=== PATIENT | female | born 1945 | race Caucasian/White ===

== ENCOUNTER 2016-08-06 12:47 | Outpatient (RCR) | payer MEDICARE, OTHER ==
[~2016-08-06 12:47] MED LIST: AMLO10TA82 PO; ASP325T; ASP81TEC PO; CALC-6 PO; CHOL2000 PO; D50KC PO; DILT120C PO; DILT120T11 PO; DRON400T2 PO; E400C PO; FEMORA PO; FENO135C PO; FEXO-104 PO; FEXO60CA19; KCL20TCR; KCL20TCR PO; LETR2.5T4 PO; LEVO5TAB2 PO; MAXZIDE; METO200T6 PO; MTF500T PO; MTP100TCR; MTP100TCR PO; MULT1TAB63 PO; OLME40TA14; OMEG100T PO; OMEG1CAP58 PO; OMG1KC; PANT40SU PO; PNT40TEC; RIVA20TA2 PO; ROSU10TA12 PO; SIMV40TA2 PO; SLOW-MAG64 M1 PO; TRIA1CAP4 PO; TRILIPEX PO; VYTORIN; WRF1T PO; WRF2T PO
[2016-08-06 13:13] LABS: BASOPHILS # (AUTO) 0.1 10^3/uL (0.0-0.1); BASOPHILS % (AUTO) 1 % (0-10); EOSINOPHILS # (AUTO) 0.3 10^3/uL (0.0-0.3); EOSINOPHILS % (AUTO) 4 % (0-10); LYMPHOCYTES # (AUTO) 1.7 X 10^3 (1.0-4.0); LYMPHOCYTES % (AUTO) 19 % (12-44); MEAN CORPUSCULAR HEMOGLOBIN 28 PG (25-34); MEAN CORPUSCULAR HGB CONC 33 G/DL (32-36); MEAN CORPUSCULAR VOLUME 84 FL (80-99); MEAN PLATELET VOLUME 11.7 FL (7.4-10.4); MONOCYTES # (AUTO) 0.7 X 10^3 (0.0-1.0); MONOCYTES % (AUTO) 8 % (0-12); NEUTROPHILS # (AUTO) 6.1 X 10^3 (1.8-7.8); NEUTROPHILS % (AUTO) 69 % (42-75); PLATELET COUNT 247 10^3/uL (130-400); RED CELL DISTRIBUTION WIDTH 14.9 % (10.0-14.5); WHITE BLOOD COUNT 8.9 10^3/uL (4.3-11.0)
[2016-08-06 14:17] LABS: ALBUMIN 4.2 G/DL (3.2-4.5); BILIRUBIN,TOTAL 0.4 MG/DL (0.1-1.0); CALCIUM 9.8 MG/DL (8.5-10.1); CREATININE SERUM 0.96 MG/DL (0.60-1.30); POTASSIUM 4.4 MMOL/L (3.6-5.0); TOTAL PROTEIN 6.4 G/DL (6.4-8.2)
[2017-03-17] MEDS ORDERED: FERR-74 PO (07:42)
[2017-03-17] MEDS ORDERED: METO200T4 PO (14:25)
== END 2016-11-04 | disposition home or self-care (01) ==
LOC: ONC 12:47
PROVIDERS: ATTEND Internal Medicine Hematology & Oncology
DX: Z08 Encounter for follow-up examination after completed treatment for malignant neoplasm (principal); Z85.3 Personal history of malignant neoplasm of breast; I89.0 Lymphedema, not elsewhere classified; N18.3 Chronic kidney disease, stage 3 (moderate); Z90.12 Acquired absence of left breast and nipple; Z79.899 Other long term (current) drug therapy
CPT/HCPCS: 36415; 80053; 85025; 99213

== ENCOUNTER → 2016-11-16 | Outpatient (CLI) | payer MEDICARE, OTHER ==
--- NOTE | 2016-11-16 09:00 | Diagnostic Imaging Report ---
PROCEDURE: US Gallbladder. TECHNIQUE: Multiple real-time grayscale images were obtained over the right upper quadrant in various projections. INDICATION: Nausea and vomiting x2 months with abdominal distention. FINDINGS: There is increased echogenicity of the liver consistent with fatty infiltration. Liver is mildly enlarged measuring 17 cm in long axis. Bile ducts are not dilated. Gallbladder shows no gallstones. Gallbladder wall measures 2.4 mm. No pericholecystic edema. The portal and hepatic vein are patent. The right kidney is visualized and shows no evidence of obstruction or calculi. There is no ascites. Patient did not experience positive Hay's sign. IMPRESSION: 1. Hepatic steatosis with mild hepatomegaly. 2. Gallbladder and bile ducts appear normal. Dictated by: Dictated on workstation # [id number]
== END ==
LOC: RAD 07:57
PROVIDERS: ATTEND Internal Medicine
DX: K76.0 Fatty (change of) liver, not elsewhere classified (principal); R10.13 Epigastric pain
CPT/HCPCS: 76705

== ENCOUNTER 2016-11-25 15:21 | Outpatient (RCR) | payer MEDICARE, OTHER ==
[~2016-11-25 15:21] MED LIST changes: -CATHETER FLUSH 10 ML SYR IV PRN
== END 2016-12-08 09:18 | disposition home or self-care (01) ==
PROVIDERS: ATTEND Orthopaedic Surgery
DX: M75.42 Impingement syndrome of left shoulder (principal)

== ENCOUNTER → 2016-11-25 | Outpatient (CLI) | payer MEDICARE, OTHER ==
[~2016-11-25] MED LIST changes: +CATHETER FLUSH 10 ML SYR IV PRN
--- NOTE | 2016-11-25 14:23 | Diagnostic Imaging Report ---
EXAMINATION: HIDA with EF measurements Indication: Abdominal pain TECHNIQUE: After the intravenous administration of 5.4 mCi of Tc 99m Choletec, imaging over the abdomen was obtained. This was followed by administration of Ensure orally to stimulate intrinsic CCK secretion, followed by continued imaging with ejection fraction measured. FINDINGS: There is homogeneous uptake in the liver with prompt bile duct and gallbladder filling seen. Bowel activity is seen at 30 minutes. Based on further imaging and gallbladder area of interest activity measurements after the administration of Ensure, the gallbladder ejection fraction is estimated at 91%. IMPRESSION: 1. Normal hepatobiliary uptake and Gallbladder filling. 2. Normal gallbladder ejection fraction. Dictated by: Dictated on workstation # [id number]
== END ==
LOC: CARD 11:22
PROVIDERS: ATTEND Internal Medicine
DX: R11.2 Nausea with vomiting, unspecified (principal)
CPT/HCPCS: 78227

== ENCOUNTER → 2016-12-30 | Outpatient (CLI) | payer MEDICARE, OTHER ==
[~2016-12-30] VITALS: Ht 160 cm; Wt 84.4 kg
[~2016-12-30] MED LIST changes: +ASPI-999 PO; +CATHETER FLUSH 10 ML SYR IV PRN; +CNC1KV IJ; +CYAN100097 SL; +DILT240C PO; +FENO135C4 PO; +FERR-74 PO; +GABA-486 PO; +LEVO5TAB12 PO; +LOSA100T28 PO; +METF500T4 PO; +METO200T4 PO; +MULT1TAB69 PO; +OMEG-9 PO; +PANT40TA3 PO; +POTA10TA36 PO; +REGADENOSON 0.4 MG/5 ML SYR (LEXISCAN) IV ONE; +RIVA20TA PO
[2016-12-30 13:08] VITALS: BP 215/104
--- NOTE | 2016-12-31 16:32 | STRESS TEST ---
DATE OF SERVICE: 12/30/2016 LEXISCAN MYOVIEW STRESS TEST REPORT REFERRING PHYSICIAN: Dong Hicks DO Baseline heart rate is 81. Baseline blood pressure is 215/104. Baseline EKG is sinus rhythm with no ischemic changes. In summary, the patient received 10.39 mCi of technetium-99 Myoview and the resting images were obtained. Then, the patient received 0.4 mg of Lexiscan followed by 29.5 mCi of technetium-99 Myoview. Throughout the test, there were no EKG changes. The resting and stress images were reviewed and compared and the short axis, horizontal long axis, and vertical long axis views. Review of the images showed breast attenuation affecting the quality of the images, there is no significant ischemia or infarction was seen. SSS is 5, SDS 5 due to the breast attenuation. There were no gated images made on this study. CONCLUSION: 1. The patient tolerated Lexiscan well. 2. Baseline hypertension persisted throughout test. 3. Breast attenuation affecting the quality of the images with typical female pattern. No significant ischemia or infarction was noted. 4. No gated images were done on this study. Job ID: [id number] DocumentID: [id number] Dictated Date: 12/30/2016 14:50:39 Sandblaster Paint Sprayer Date: 12/30/2016 17:37:32 Dictated By: TANNER MARSHALL MD
== END ==
LOC: CARD 10:57
PROVIDERS: ATTEND Physician Assistant
DX: I25.10 Atherosclerotic heart disease of native coronary artery without angina pectoris (principal); I48.0 Paroxysmal atrial fibrillation; I65.23 Occlusion and stenosis of bilateral carotid arteries; I10 Essential (primary) hypertension
CPT/HCPCS: 93306

== ENCOUNTER → 2017-02-22 | Outpatient (CLI) | payer MEDICARE, OTHER ==
[~2017-02-22] MED LIST changes: -ASPI-999 PO; -CATHETER FLUSH 10 ML SYR IV PRN; -CNC1KV IJ; -CYAN100097 SL; -DILT240C PO; -FENO135C4 PO; -FERR-74 PO; -GABA-486 PO; -LEVO5TAB12 PO; -LOSA100T28 PO; -METF500T4 PO; -METO200T4 PO; -MULT1TAB69 PO; -OMEG-9 PO; -PANT40TA3 PO; -POTA10TA36 PO; -REGADENOSON 0.4 MG/5 ML SYR (LEXISCAN) IV ONE; -RIVA20TA PO
--- NOTE | 2017-02-23 13:19 | Diagnostic Imaging Report ---
EXAMINATION: Right breast screening mammogram with tomography. The current study was also evaluated with a Computer Aided Detection (CAD) system. COMPARISON: 02/20/2016. INDICATION: No current complaints. History of breast cancer status post left mastectomy. FINDINGS: The right breast is composed of heterogeneously dense parenchyma which may decrease mammographic sensitivity. There are benign appearing calcifications seen. Allowing for technique and positional differences, no suspicious change is seen. IMPRESSION: Dense breasts with no definite change. ACR BI-RADS Category 2: Benign findings. Result letter will be mailed to the patient. Note: At least 10% of breast cancer is not imaged by mammography. Dictated by: Dictated on workstation # [id number]
== END ==
LOC: RAD 14:41
PROVIDERS: ATTEND Nurse Practitioner Adult Health
DX: Z12.31 Encounter for screening mammogram for malignant neoplasm of breast (principal)

== ENCOUNTER 2017-02-25 12:55 | Outpatient (RCR) | payer MEDICARE, OTHER ==
[2017-02-25 13:13] LABS: BASOPHILS # (AUTO) 0.1 10^3/uL (0.0-0.1); BASOPHILS % (AUTO) 1 % (0-10); EOSINOPHILS # (AUTO) 0.3 10^3/uL (0.0-0.3); EOSINOPHILS % (AUTO) 6 % (0-10); HEMATOCRIT 41 % (35-52); LYMPHOCYTES # (AUTO) 1.5 X 10^3 (1.0-4.0); LYMPHOCYTES % (AUTO) 27 % (12-44); MEAN CORPUSCULAR HEMOGLOBIN 29 PG (25-34); MEAN CORPUSCULAR HGB CONC 34 G/DL (32-36); MEAN CORPUSCULAR VOLUME 86 FL (80-99); MEAN PLATELET VOLUME 12.2 FL (7.4-10.4); MONOCYTES # (AUTO) 0.5 X 10^3 (0.0-1.0); MONOCYTES % (AUTO) 9 % (0-12); NEUTROPHILS # (AUTO) 3.2 X 10^3 (1.8-7.8); NEUTROPHILS % (AUTO) 58 % (42-75); PLATELET COUNT 197 10^3/uL (130-400); RED BLOOD COUNT 4.77 10^6/uL (4.35-5.85); RED CELL DISTRIBUTION WIDTH 14.4 % (10.0-14.5); WHITE BLOOD COUNT 5.6 10^3/uL (4.3-11.0)
[2017-02-25 13:41] LABS: ALANINE AMINOTRANSFERASE 26 U/L (0-55); ALBUMIN 4.1 GM/DL (3.2-4.5); ALKALINE PHOSPHATASE 41 U/L (40-136); BILIRUBIN,TOTAL 0.5 MG/DL (0.1-1.0); BUN/CREATININE RATIO 21; CALCIUM 9.8 MG/DL (8.5-10.1); CARBON DIOXIDE 27 MMOL/L (21-32); CHLORIDE 105 MMOL/L (98-107); CREATININE SERUM 0.89 MG/DL (0.60-1.30); GFR ESTIMATED > 60; GLUCOSE 265 MG/DL (70-105); POTASSIUM 3.9 MMOL/L (3.6-5.0); SODIUM 138 MMOL/L (135-145); TOTAL PROTEIN 6.7 GM/DL (6.4-8.2)
[2017-03-17] MEDS ORDERED: POTA10TA36 PO (07:42)
[2017-03-17] MEDS ORDERED: FERR325T18 PO (07:42)
[2017-03-17] MEDS ORDERED: CYAN100097 SL (07:42)
[2017-03-17] MEDS ORDERED: GABA-486 PO ×2 (07:42→14:25)
[2017-03-17] MEDS ORDERED: LOSA100T28 PO (07:42)
[2017-03-17] MEDS ORDERED: LEVO5TAB12 PO (14:11)
[2017-03-17] MEDS ORDERED: RIVA20TA PO (14:25)
[2017-03-17] MEDS ORDERED: DILT240C PO (14:25)
[2017-03-17] MEDS ORDERED: METF500T4 PO (14:25)
[2017-03-17] MEDS ORDERED: ASPI-999 PO (14:25)
[2017-03-17] MEDS ORDERED: PANT40TA3 PO (14:25)
[2017-03-17] MEDS ORDERED: MULT1TAB69 PO (14:25)
[2017-03-17] MEDS ORDERED: METO200T48 PO (14:25)
[2017-03-17] MEDS ORDERED: FENO135C4 PO (14:25)
[2017-03-17] MEDS ORDERED: CNC1KV IJ (14:25)
[2017-03-17] MEDS ORDERED: OMEG-9 PO (14:25)
[2017-03-17] MEDS ORDERED: DRON400T2 PO (14:25)
== END 2017-05-26 | disposition home or self-care (01) ==
LOC: ONC 12:55
PROVIDERS: ATTEND Internal Medicine Hematology & Oncology
DX: Z08 Encounter for follow-up examination after completed treatment for malignant neoplasm (principal); Z85.3 Personal history of malignant neoplasm of breast; I89.0 Lymphedema, not elsewhere classified; N18.3 Chronic kidney disease, stage 3 (moderate); Z90.12 Acquired absence of left breast and nipple; Z79.899 Other long term (current) drug therapy
CPT/HCPCS: 36415; 80053; 85025; 99213

== ENCOUNTER → 2017-07-12 | Outpatient (CLI) | payer MEDICARE, OTHER ==
[~2017-07-12] MED LIST changes: +ASPI-999 PO; +CNC1KV IJ; +CYAN100097 SL; +DILT240C PO; +FENO135C4 PO; +FERR325T18 PO; +GABA-486 PO; +LEVO5TAB12 PO; +LOSA100T28 PO; +METF500T4 PO; +METO200T48 PO; +MULT1TAB69 PO; +OMEG-9 PO; +PANT40TA3 PO; +POTA10TA36 PO; +RIVA20TA PO
== END ==
LOC: SLEEP 14:30
PROVIDERS: ATTEND Internal Medicine
DX: G47.33 Obstructive sleep apnea (adult) (pediatric) (principal)

== ENCOUNTER 2017-08-13 21:05 | Outpatient (CLI) | payer MEDICARE, OTHER ==
[~2017-08-13 21:05] MED LIST changes: -METF500T4 PO; +METF500T5 PO
== END 2017-08-14 07:26 | disposition home or self-care (01) ==
LOC: SLEEP 21:05
PROVIDERS: ATTEND Otolaryngology Otolaryngology/Facial Plastic Surgery
DX: G47.33 Obstructive sleep apnea (adult) (pediatric) (principal)
CPT/HCPCS: 95811

== ENCOUNTER 2017-08-26 13:10 | Outpatient (RCR) | payer MEDICARE, OTHER ==
[2017-08-26 13:37] LABS: BASOPHILS # (AUTO) 0.1 10^3/uL (0.0-0.1); BASOPHILS % (AUTO) 1 % (0-10); EOSINOPHILS # (AUTO) 0.2 10^3/uL (0.0-0.3); EOSINOPHILS % (AUTO) 4 % (0-10); HEMATOCRIT 40 % (35-52); HEMOGLOBIN 13.8 G/DL (11.5-16.0); LYMPHOCYTES # (AUTO) 1.8 X 10^3 (1.0-4.0); LYMPHOCYTES % (AUTO) 30 % (12-44); MEAN CORPUSCULAR HEMOGLOBIN 30 PG (25-34); MEAN CORPUSCULAR HGB CONC 34 G/DL (32-36); MEAN CORPUSCULAR VOLUME 86 FL (80-99); MEAN PLATELET VOLUME 12.3 FL (7.4-10.4); MONOCYTES # (AUTO) 0.4 X 10^3 (0.0-1.0); MONOCYTES % (AUTO) 7 % (0-12); NEUTROPHILS # (AUTO) 3.4 X 10^3 (1.8-7.8); NEUTROPHILS % (AUTO) 58 % (42-75); PLATELET COUNT 198 10^3/uL (130-400); RED BLOOD COUNT 4.66 10^6/uL (4.35-5.85); RED CELL DISTRIBUTION WIDTH 14.1 % (10.0-14.5); WHITE BLOOD COUNT 5.9 10^3/uL (4.3-11.0)
[2017-08-26 13:52] LABS: ALBUMIN 4.4 GM/DL (3.2-4.5); BILIRUBIN,TOTAL 0.7 MG/DL (0.1-1.0); CALCIUM 10.4 MG/DL (8.5-10.1); CREATININE SERUM 1.09 MG/DL (0.60-1.30); POTASSIUM 3.9 MMOL/L (3.6-5.0)
== END 2017-11-24 | disposition home or self-care (01) ==
LOC: ONC 13:10
PROVIDERS: ATTEND Internal Medicine Hematology & Oncology
DX: Z08 Encounter for follow-up examination after completed treatment for malignant neoplasm (principal); Z85.3 Personal history of malignant neoplasm of breast; I89.0 Lymphedema, not elsewhere classified; N18.3 Chronic kidney disease, stage 3 (moderate); I48.91 Unspecified atrial fibrillation; Z90.12 Acquired absence of left breast and nipple; Z79.899 Other long term (current) drug therapy; Z92.21 Personal history of antineoplastic chemotherapy
CPT/HCPCS: 36415; 80053; 85025; 99213

== ENCOUNTER 2018-02-23 12:55 | Outpatient (RCR) | payer MEDICARE, OTHER ==
[~2018-02-23 12:55] MED LIST changes: -LOSA100T28 PO; +LOSA100T57 PO; +METF-397 PO; -METF500T5 PO
[2018-02-23 13:06] LABS: BASOPHILS # (AUTO) 0.1 10^3/uL (0.0-0.1); BASOPHILS % (AUTO) 1 % (0-10); EOSINOPHILS # (AUTO) 0.4 10^3/uL (0.0-0.3); EOSINOPHILS % (AUTO) 6 % (0-10); HEMATOCRIT 40 % (35-52); HEMOGLOBIN 13.7 G/DL (11.5-16.0); LYMPHOCYTES # (AUTO) 1.6 X 10^3 (1.0-4.0); LYMPHOCYTES % (AUTO) 29 % (12-44); MEAN CORPUSCULAR HEMOGLOBIN 31 PG (25-34); MEAN CORPUSCULAR HGB CONC 35 G/DL (32-36); MEAN CORPUSCULAR VOLUME 88 FL (80-99); MEAN PLATELET VOLUME 11.7 FL (7.4-10.4); MONOCYTES # (AUTO) 0.5 X 10^3 (0.0-1.0); MONOCYTES % (AUTO) 8 % (0-12); NEUTROPHILS # (AUTO) 3.1 X 10^3 (1.8-7.8); NEUTROPHILS % (AUTO) 56 % (42-75); PLATELET COUNT 215 10^3/uL (130-400); RED BLOOD COUNT 4.49 10^6/uL (4.35-5.85); WHITE BLOOD COUNT 5.5 10^3/uL (4.3-11.0)
[2018-02-23 13:27] LABS: ALBUMIN 4.4 GM/DL (3.2-4.5); BILIRUBIN,TOTAL 0.6 MG/DL (0.1-1.0); CALCIUM 10.1 MG/DL (8.5-10.1); CREATININE SERUM 0.97 MG/DL (0.60-1.30); POTASSIUM 3.9 MMOL/L (3.6-5.0)
== END 2018-05-24 | disposition home or self-care (01) ==
LOC: ONC 12:55
PROVIDERS: ATTEND Internal Medicine Hematology & Oncology
DX: Z08 Encounter for follow-up examination after completed treatment for malignant neoplasm (principal); Z85.3 Personal history of malignant neoplasm of breast; I89.0 Lymphedema, not elsewhere classified; N18.3 Chronic kidney disease, stage 3 (moderate); I48.91 Unspecified atrial fibrillation; Z90.12 Acquired absence of left breast and nipple; Z79.899 Other long term (current) drug therapy; Z92.21 Personal history of antineoplastic chemotherapy
CPT/HCPCS: 36415; 80053; 85025; 99213

== ENCOUNTER → 2018-02-28 | Outpatient (CLI) | payer MEDICARE, OTHER ==
[~2018-02-28] MED LIST changes: -LOSA100T57 PO; +LOSA100T8 PO
--- NOTE | 2018-02-28 12:11 | Diagnostic Imaging Report ---
INDICATION: Routine screening. Comparison is made with prior right mammogram from 02/22/2017 and 02/20/2016. 2-D and 3-D unilateral right screening mammography was performed with CAD. Scattered fibronodular densities are identified in the right breast. There are benign calcifications in the right breast. No mass or malignant appearing microcalcifications are seen. The right axilla is unremarkable. IMPRESSION: BI-RADS category 2 No mammographic features suspicious for malignancy are identified. Dictated by: Dictated on workstation # [id number]
== END ==
LOC: RAD 10:52
PROVIDERS: ATTEND Nurse Practitioner Adult Health
DX: Z12.31 Encounter for screening mammogram for malignant neoplasm of breast (principal); C50.412 Malignant neoplasm of upper-outer quadrant of left female breast

== ENCOUNTER 2018-06-02 12:11 | Outpatient (CLI) | payer MEDICARE, OTHER ==
[~2018-06-02] VITALS: Ht 160 cm; Wt 84.4 kg
[~2018-06-02 12:11] MED LIST changes: +LOSA100T57 PO; -LOSA100T8 PO
[2018-06-02] MEDS ORDERED: LACTATED RINGERS 1,000 ML IV ONE ×2 (12:20→13:15)
[2018-06-02] MEDS ORDERED: ONDANSETRON 4 MG/2 ML (SDV) Z0FRAN ONE (12:37)
[2018-06-02 12:49] VITALS: BP 136/65
[2018-06-02 12:59] VITALS: BP 136/65
[2018-06-02 13:02] LABS: HEMOGLOBIN 13.5 G/DL (11.5-16.0); MEAN PLATELET VOLUME 11.9 FL (7.4-10.4); RED CELL DISTRIBUTION WIDTH 14.1 % (10.0-14.5)
[2018-06-02] MEDS ORDERED: DIPHENOXYLATE/ATROPINE 2.5MG/0.025MG (LOMOTIL) TAB PO PRN (13:15)
[2018-06-02] MEDS ORDERED: ONDANSETRON 4 MG/2 ML (SDV) Z0FRAN IV PRN (13:15)
[2018-06-02] MEDS ORDERED: ACETAMINOPHEN 325 MG TABLET PO PRN (13:15)
[2018-06-02 13:20] LABS: ALBUMIN 3.8 GM/DL (3.2-4.5); BILIRUBIN,TOTAL 0.6 MG/DL (0.1-1.0); CALCIUM 9.4 MG/DL (8.5-10.1); CREATININE SERUM 1.02 MG/DL (0.60-1.30); POTASSIUM 3.1 MMOL/L (3.6-5.0); TOTAL PROTEIN 6.5 GM/DL (6.4-8.2)
[2018-06-02] MEDS ORDERED: D5 NS W/KCL 20 MEQ/L 1,000 ML IV ONE (13:30)
[2018-06-02 15:53] VITALS: BP 136/65
== END 2018-06-02 15:50 | disposition home or self-care (01) ==
LOC: SDC 12:11
PROVIDERS: ATTEND Internal Medicine
DX: A08.4 Viral intestinal infection, unspecified (principal); E86.0 Dehydration
CPT/HCPCS: 36415; 80053; 85027

== ENCOUNTER 2018-06-04 03:41 | Emergency (ER) | payer MEDICARE, OTHER ==
[~2018-06-04] VITALS: Ht 160 cm; Wt 81.6 kg
[2018-06-04] MEDS ORDERED: DRON400T2 (04:02)
[2018-06-04] MEDS ORDERED: PRAV20TA3 (04:02)
[2018-06-04] MEDS ORDERED: GLYB5TAB6 (04:02)
[2018-06-04] MEDS ORDERED: METF-397 (04:02)
[2018-06-04] MEDS ORDERED: HYDR25TA4 (04:02)
[2018-06-04] MEDS ORDERED: LACTATED RINGERS 1,000 ML IV ONE (04:06)
--- NOTE | 2018-06-04 04:13 | ED GI ---
General Chief Complaint: Cough/Cold/Flu Symptoms Stated Complaint: FLU,N,V,D,A-FIB,DEHYDRATED Source of Information: Patient History of Present Illness Date Seen by Provider: Jun 04, 2018 Time Seen by Provider: 03:55 Initial Comments PT ARRIVES VIA POV FROM HOME--DROVE SELF HERE/LIVES ALONE C/O NAUSEA/VOMITING/DIARRHEA SINCE Wednesday05/30/18 STATES SHE IS STILL NAUSEATED, BUT HAS NOT VOMITED SINCE Wednesday06/02/18 STATES SHE HAS HAD "EXPLOSIVE DIARRHEA" STATES SHE HAD 22 STOOLS FROM 2100 06/02/18 TO 0900 ON 06/03/18 STATES SHE HAS HAD 8-9 STOOLS SINCE MIDNIGHT TONIGHT STATES SHE HAS BEEN UP ALL NIGHT DUE TO DIARRHEA NO BLACK/BLOODY/TARRY STOOLS HAS HAD SUBJECTIVE FEVER AND SWEATS ALL WEEK. STATES SHE WOKE UP AND HER PILLOW AND CLOTHING WERE SATURATED WITH SWEAT NO ABDOMINAL PAIN AT ANY TIME LAST VOID 0315 AND VOIDING A NORMAL AMOUNT NO SICK CONTACTS NO SUSPICIOUS FOODS HAD OUTPATIENT IV FLUIDS, BUT NO TESTS, ON 06/02/18--ORDERED BY DR. DEL CID PCP: DR. DEL CID JAVA XML DEVELOPER: DR. MARSHALL Allergies and Home Medications Allergies Coded Allergies: amiodarone (Verified Allergy, Intermediate, 07/29/07) butorphanol (Verified Allergy, Intermediate, 07/29/07) codeine (Verified Allergy, Intermediate, 07/29/07) epinephrine (Verified Allergy, Intermediate, 07/29/07) hydrocodone (Verified Allergy, Intermediate, 07/29/07) morphine (Verified Allergy, Intermediate, 07/29/07) Home Medications Aspirin 81 Mg Tab.chew, 81 MG PO HS, (Reported) Cyanocobalamin 1,000 Mcg/Ml Inj, 1,000 MCG IJ MONTHLY, (Reported) Diltiazem HCl 240 Mg Cap.er.24h, 240 MG PO DAILY, (Reported) Dronedarone HCl 400 Mg Tablet, 400 MG PO BID, (Reported) Fenofibric Acid (Choline) 135 Mg Capsule.dr, 135 MG PO HS, (Reported) Ferrous Sulfate 325 Mg Tablet, 325 MG PO HS, (Reported) Lactobacillus Acidophilus 1 Each Capsule, 2 EACH PO QID Prescribed by: INOCENCIO WALL on 06/04/18 0555 Levocetirizine Dihydrochloride 5 Mg Tablet, 5 MG PO HS, (Reported) Losartan Potassium 100 Mg Tablet, 100 MG PO HS, (Reported) Metoprolol Succinate 200 Mg Tab.er.24h, 200 MG PO DAILY, (Reported) Multivitamin 1 Each Tablet, 1 TAB PO DAILY, (Reported) [place]-3/Dha/Epa/Fish Oil 1 Each Capsule.dr, 1,400 MG PO BID, (Reported) Ondansetron 4 Mg Tab.rapdis, 4 MG PO Q4H Prescribed by: INOCENCIO WALL on 06/04/18 0555 Potassium Chloride 10 Meq Tab.er.prt, 10 MEQ PO HS, (Reported) Rivaroxaban 20 Mg Tablet, 20 MG PO HS, (Reported) Patient Home Medication List Home Medication List Reviewed: Yes Review of Systems Review of Systems Constitutional: see HPI, diaphoresis, fever EENTM: No Symptoms Reported Respiratory: No Symptoms Reported Gastrointestinal: See HPI; Denies Abdominal Pain; Diarrhea, Nausea, Poor Appetite, Vomiting Genitourinary: No Symptoms Reported Musculoskeletal: no symptoms reported Skin: no symptoms reported Psychiatric/Neurological: No Symptoms Reported Endocrine: No Symptoms Reported Hematologic/Lymphatic: No Symptoms Reported Past Visccwi-Pnvakh-Wuhmgx Hx Patient Social History Alcohol Use: Denies Use Recreational Drug Use: No Smoking Status: Never a Smoker Recent Foreign Travel: No Contact w/Someone Who Travel: No Immunizations Up To Date Date of Pneumonia Vaccine: Nov 12, 2008 Date of Influenza Vaccine: Jan 13, 2017 Seasonal Allergies Seasonal Allergies: No Past Medical History Surgeries: Yes (LINQ DEVICE; MAZE PROCEDURE; CARDIAC ABLATION; CARDIAC CATH; 4 VESSEL CABG; HYST/OVARIES INTACT; RIGHT WRIST JOINT SURGERY; BILATERAL ROTATOR CUFF REPAIR; LEFT MASTECTOMY) Appendectomy, Breast, Cardiac, CABG, Section, Hysterectomy, Orthopedic Respiratory: No Cardiac: Yes Atrial Fibrillation, Chronic Edema/Swelling, Coronary Artery Disease, High Cholesterol, Hypertension Neurological: No Reproductive Disorders: No Female Reproductive Disorders: Denies Genitourinary: Yes Kidney Stones Gastrointestinal: Yes Gastroesophageal Reflux, Hiatal Hernia Musculoskeletal: Yes (LYMPHEDEMA LEFT ARM; BILATERAL ROTATOR CUFF SURGERY; RIGHT WRIST JOINT SURGERY) Arthritis, Rheumatoid Arthritis Endocrine: Yes Diabetes, Non-Insulin dep HEENT: Yes Cataract Loss of Vision: Denies Hearing Impairment: Denies Cancer: Yes Breast Did You Recieve Any Treatments: Yes (LEFT MASTECTOMY) What Type of Treatment Did You: Surgical Intervention Psychosocial: No Integumentary: No Blood Disorders: No Physical Exam Vital Signs Vital Signs - First Documented 06/04/18 03:48 Temp 97.2 Pulse 89 Resp 18 B/P (MAP) 141/96 (111) Pulse Ox 96 O2 Delivery Room Air Capillary Refill : Height/Weight/BMI Height: 5'3.00" Weight: 186lbs. 0.0oz. 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, no motor/sensory deficits, alert, normal mood/affect, oriented x 3 Skin: normal color, warm/dry Focused Exam Lactate Level 06/04/18 04:20: Lactic Acid Level 0.65 Lactic Acid Level Laboratory Tests Test 06/04/18 04:20 Lactic Acid Level 0.65 MMOL/L (0.50-2.00) Progress/Results/Core Measures Results/Orders Lab Results Laboratory Tests Test 06/04/18 04:20 Range/Units White Blood Count 7.4 4.3-11.0 10^3/uL Red Blood Count 4.59 4.35-5.85 10^6/uL Hemoglobin 13.6 11.5-16.0 G/DL Hematocrit 40 35-52 % Mean Corpuscular Volume 87 80-99 FL Mean Corpuscular Hemoglobin 30 25-34 PG Mean Corpuscular Hemoglobin Concent 34 32-36 G/DL Red Cell Distribution Width 14.4 10.0-14.5 % Platelet Count 158 130-400 10^3/uL Mean Platelet Volume 12.1 H 7.4-10.4 FL Neutrophils (%) (Auto) 72 42-75 % Lymphocytes (%) (Auto) 14 12-44 % Monocytes (%) (Auto) 13 H 0-12 % Eosinophils (%) (Auto) 0 0-10 % Basophils (%) (Auto) 0 0-10 % Neutrophils # (Auto) 5.3 1.8-7.8 X 10^3 Lymphocytes # (Auto) 1.1 1.0-4.0 X 10^3 Monocytes # (Auto) 1.0 0.0-1.0 X 10^3 Eosinophils # (Auto) 0.0 0.0-0.3 10^3/uL Basophils # (Auto) 0.0 0.0-0.1 10^3/uL Prothrombin Time 18.9 H 12.2-14.7 SEC INR Comment 1.6 H 0.8-1.4 Activated Partial Thromboplast Time 45 H 24-35 SEC Sodium Level 137 135-145 MMOL/L Potassium Level 3.0 L 3.6-5.0 MMOL/L Chloride Level 106 98-107 MMOL/L Carbon Dioxide Level 19 L 21-32 MMOL/L Anion Gap 12 5-14 MMOL/L Blood Urea Nitrogen 29 H 7-18 MG/DL Creatinine 1.19 0.60-1.30 MG/DL Estimat Glomerular Filtration Rate 44 BUN/Creatinine Ratio 24 Glucose Level 52 *L 70-105 MG/DL Lactic Acid Level 0.65 0.50-2.00 MMOL/L Calcium Level 10.1 8.5-10.1 MG/DL Corrected Calcium 10.2 H 8.5-10.1 MG/DL Magnesium Level 1.7 L 1.8-2.4 MG/DL Total Bilirubin 0.7 0.1-1.0 MG/DL Aspartate Amino Transf (AST/SGOT) 25 5-34 U/L Alanine Aminotransferase (ALT/SGPT) 30 0-55 U/L Alkaline Phosphatase 33 L 40-136 U/L Total Protein 7.0 6.4-8.2 GM/DL Albumin 3.9 3.2-4.5 GM/DL Amylase Level 55 25-125 U/L Lipase 32 8-78 U/L Micro Results Microbiology 06/04/18 Influenza Types A,B Antigen (ANIBAL) - Final, Complete My Orders Orders - INOCENCIO WALL DO Saline Lock/Iv-Start (06/04/18 04:06) Monitor-Rhythm Ecg Trace Only (06/04/18 04:06) Amylase (06/04/18 04:06) Cbc With Automated Diff (06/04/18 04:06) Comprehensive Metabolic Panel (06/04/18 04:06) Lactic Acid Analyzer (06/04/18 04:06) Lipase (06/04/18 04:06) Magnesium (06/04/18 04:06) Protime With Inr (06/04/18 04:06) Partial Thromboplastin Time (06/04/18 04:06) Ua Culture If Indicated (06/04/18 04:06) Blood Culture (06/04/18 04:06) Influenza A And B Antigens (06/04/18 04:06) Ondansetron Injection (Zofran Injectio (06/04/18 04:15) Saline Lock/Iv-Start (06/04/18 04:06) Lactated Ringers (Lr 1000 Ml Iv Solution (06/04/18 04:06) D5 1/2 Ns W/Kcl 20 Meq/L (Dextrose 5%/0. (06/04/18 05:00) Magnesium 1 Gm/100 Ml Ivpb (Magnesium Carter (06/04/18 05:00) Magnesium Oxide Tablet (Mag Ox Tablet) (06/04/18 05:00) D5 1/2 Ns W/Kcl 20 Meq/L (Dextrose 5%/0. (06/04/18 04:59) Magnesium 1 Gm/100 Ml Ivpb (Magnesium Carter (06/04/18 04:59) Magnesium Oxide Tablet (Mag Ox Tablet) (06/04/18 04:59) Magnesium Oxide Tablet (Mag Ox Tablet) (06/04/18 05:06) Accucheck Stat ONCE (06/04/18 05:51) Medications Given in ED Current Medications Medications Dose Ordered Sig/Torie Route Start Time Stop Time Status Last Admin Dose Admin Lactated Ringer's 1,000 ml @ 0 mls/hr Q0M ONCE IV 06/04/18 04:06 06/04/18 04:09 DC 06/04/18 04:23 0 MLS/HR Magnesium Oxide 1,200 mg ONCE ONCE PO 06/04/18 05:00 06/04/18 05:16 DC 06/04/18 05:08 1,200 MG Magnesium Sulfate/ Dextrose 100 ml @ 100 mls/hr ONCE ONCE IV 06/04/18 05:00 06/04/18 05:59 DC 06/04/18 05:08 100 MLS/HR Ondansetron HCl 4 mg ONCE ONCE IVP 06/04/18 04:15 06/04/18 04:16 DC 06/04/18 04:23 4 MG Vital Signs/I&O 06/04/18 03:48 Temp 97.2 Pulse 89 Resp 18 B/P (MAP) 141/96 (111) Pulse Ox 96 O2 Delivery Room Air Progress Progress Note : Progress Note NAUSEA RELIEVED WITH ZOFRAN AND NO VOMITING DURING ER STAY NO DIARRHEA DURING ER STAY NO FEVER/SWEATS/CHILLS DURING ER STAY PT VOIDED BUT UNABLE TO COLLECT URINE REPEAT GLUCOSE 175 Departure Impression Primary Impression: Gastroenteritis Additional Impressions: Mild dehydration Electrolyte imbalance Hypomagnesemia Hypokalemia Hypoglycemia associated with diabetes Disposition: HOME, SELF-CARE Condition: Improved Departure-Patient Inst. Referrals: LUDY DEL CID DO (PCP/Family) Primary Care Physician Patient Instructions: Dehydration, Adult (DC), Hypokalemia (DC), Low Magnesium Level (DC), Sick Day Management for Diabetics, Viral Gastroenteritis, Adult (DC) Add. Discharge Instructions: CLEAR LIQUIDS-WATER, BROTH, JELLO, GATORADE BRATS DIET--BANANAS, RICE, APPLESAUCE, TOAST, SALTINES TYLENOL AND MOTRIN NEEDED FOR PAIN OR FEVER OVER [address] DEL CID ON WEDNESDAY IF NO BETTER, RETURN TO ER IF WORSE All discharge instructions reviewed with patient and/or family. Voiced understanding. Scripts Ondansetron (Ondansetron Odt) 4 Mg Tab.rapdis 4 MG PO Q4H for Nausea/Vomiting, #10 TAB Prov: INOCENCIO WALL DO 06/04/18 Lactobacillus Acidophilus (Acidophilus) 1 Each Capsule 2 EACH PO QID, #80 CAP Prov: INOCENCIO WALL DO 06/04/18 INOCENCIO WALL DO Jun 04, 2018 04:13
[2018-06-04] MEDS ORDERED: ONDANSETRON 4 MG/2 ML (SDV) Z0FRAN IVP ONE (04:15)
[2018-06-04 04:36] LABS: BASOPHILS % (AUTO) 0 % (0-10); EOSINOPHILS % (AUTO) 0 % (0-10); HEMATOCRIT 40 % (35-52); HEMOGLOBIN 13.6 G/DL (11.5-16.0); LYMPHOCYTES # (AUTO) 1.1 X 10^3 (1.0-4.0); LYMPHOCYTES % (AUTO) 14 % (12-44); MEAN CORPUSCULAR HEMOGLOBIN 30 PG (25-34); MEAN CORPUSCULAR HGB CONC 34 G/DL (32-36); MEAN CORPUSCULAR VOLUME 87 FL (80-99); MEAN PLATELET VOLUME 12.1 FL (7.4-10.4); MONOCYTES % (AUTO) 13 % (0-12); NEUTROPHILS # (AUTO) 5.3 X 10^3 (1.8-7.8); NEUTROPHILS % (AUTO) 72 % (42-75); PLATELET COUNT 158 10^3/uL (130-400); RED CELL DISTRIBUTION WIDTH 14.4 % (10.0-14.5); WHITE BLOOD COUNT 7.4 10^3/uL (4.3-11.0)
[2018-06-04 04:47] LABS: INR 1.6 (0.8-1.4); PROTHROMBIN TIME PATIENT 18.9 SEC (12.2-14.7)
[2018-06-04 04:55] LABS: ALBUMIN 3.9 GM/DL (3.2-4.5); BILIRUBIN,TOTAL 0.7 MG/DL (0.1-1.0); CALCIUM 10.1 MG/DL (8.5-10.1); CREATININE SERUM 1.19 MG/DL (0.60-1.30); MAGNESIUM 1.7 MG/DL (1.8-2.4)
[2018-06-04] MEDS ORDERED: MAGNESIUM OXIDE (MAG-OX)400 MG TAB ONE ×2 (04:59→05:06)
[2018-06-04] MEDS ORDERED: MAGNESIUM 1 GM/100 ML IVPB 100 ML IV ONE ×2 (04:59→05:00)
[2018-06-04] MEDS ORDERED: D5 1/2 NS W/KCL 20 MEQ/L 1,000 ML IV ONE (04:59)
[2018-06-04] MEDS ORDERED: D5 1/2 NS W/KCL 20 MEQ/L 1,000 ML IV SCH (05:00)
[2018-06-04] MEDS ORDERED: MAGNESIUM OXIDE (MAG-OX)400 MG TAB PO ONE (05:00)
[2018-06-04] MEDS ORDERED: ONDA4TAB11 PO (05:55)
[2018-06-04] MEDS ORDERED: LACT1CAP8 PO (05:55)
[2018-06-04 06:50] VITALS: BP 132/65
[2018-06-04] MEDS ORDERED: LACT1POW8 MC (06:54)
== END 2018-06-04 06:52 | disposition home or self-care (01) ==
LOC: EDUNIT# 03:41 → ER 03:44
DX: K52.9 Noninfective gastroenteritis and colitis, unspecified (principal); E86.0 Dehydration; E87.6 Hypokalemia; E11.649 Type 2 diabetes mellitus with hypoglycemia without coma; E83.42 Hypomagnesemia; E87.8 Other disorders of electrolyte and fluid balance, not elsewhere classified; I48.91 Unspecified atrial fibrillation; I25.10 Atherosclerotic heart disease of native coronary artery without angina pectoris; E78.00 Pure hypercholesterolemia, unspecified; I10 Essential (primary) hypertension; K21.9 Gastro-esophageal reflux disease without esophagitis; Z85.3 Personal history of malignant neoplasm of breast; Z87.19 Personal history of other diseases of the digestive system; Z87.442 Personal history of urinary calculi; Z79.82 Long term (current) use of aspirin; Z79.01 Long term (current) use of anticoagulants; Z98.890 Other specified postprocedural states; Z95.1 Presence of aortocoronary bypass graft; Z90.12 Acquired absence of left breast and nipple; Z90.49 Acquired absence of other specified parts of digestive tract; Z90.710 Acquired absence of both cervix and uterus; Z88.8 Allergy status to other drugs, medicaments and biological substances; Z88.5 Allergy status to narcotic agent
CPT/HCPCS: 36415; 80053; 82150; 82962; 83605; 83690; 83735; 85025; 85610; 85730; 87040; 87804; 93041

== ENCOUNTER 2018-10-13 12:22 | Outpatient (RCR) | payer MEDICARE, OTHER ==
[2018-10-13 13:20] LABS: BASOPHILS % (AUTO) 1 % (0-10); EOSINOPHILS # (AUTO) 0.3 10^3/uL (0.0-0.3); EOSINOPHILS % (AUTO) 6 % (0-10); HEMATOCRIT 42 % (35-52); LYMPHOCYTES # (AUTO) 1.3 X 10^3 (1.0-4.0); LYMPHOCYTES % (AUTO) 31 % (12-44); MEAN CORPUSCULAR HEMOGLOBIN 30 PG (25-34); MEAN CORPUSCULAR HGB CONC 34 G/DL (32-36); MEAN CORPUSCULAR VOLUME 88 FL (80-99); MEAN PLATELET VOLUME 12.6 FL (7.4-10.4); MONOCYTES # (AUTO) 0.5 X 10^3 (0.0-1.0); MONOCYTES % (AUTO) 13 % (0-12); NEUTROPHILS % (AUTO) 49 % (42-75); PLATELET COUNT 159 10^3/uL (130-400); RED CELL DISTRIBUTION WIDTH 14.7 % (10.0-14.5); WHITE BLOOD COUNT 4.1 10^3/uL (4.3-11.0)
[2018-10-13 13:39] LABS: ALBUMIN 4.5 GM/DL (3.2-4.5); BILIRUBIN,TOTAL 0.5 MG/DL (0.1-1.0); CALCIUM 10.4 MG/DL (8.5-10.1); CREATININE SERUM 1.13 MG/DL (0.60-1.30); POTASSIUM 3.9 MMOL/L (3.6-5.0)
[2018-10-23] MEDS ORDERED: CYCL10TA9 PO (14:18)
[2018-10-23] MEDS ORDERED: TRAM50TA2 PO (14:18)
[2019-01-12] MEDS ORDERED: TRAM-42 PO (10:12)
[2019-01-12] MEDS ORDERED: TIZA2CAP PO (10:12)
== END 2019-01-11 | disposition home or self-care (01) ==
LOC: ONC 12:22
PROVIDERS: ATTEND Internal Medicine Hematology & Oncology
DX: Z08 Encounter for follow-up examination after completed treatment for malignant neoplasm (principal); Z85.3 Personal history of malignant neoplasm of breast; I89.0 Lymphedema, not elsewhere classified; I12.9 Hypertensive chronic kidney disease with stage 1 through stage 4 chronic kidney disease, or unspecified chronic kidney disease; N18.3 Chronic kidney disease, stage 3 (moderate); I48.0 Paroxysmal atrial fibrillation; E78.00 Pure hypercholesterolemia, unspecified; K21.9 Gastro-esophageal reflux disease without esophagitis; M06.9 Rheumatoid arthritis, unspecified; Z90.12 Acquired absence of left breast and nipple; Z79.899 Other long term (current) drug therapy; Z92.21 Personal history of antineoplastic chemotherapy
CPT/HCPCS: 36415; 80053; 85025; 99213

== ENCOUNTER → 2018-10-13 | Outpatient (CLI) | payer MEDICARE, OTHER ==
[~2018-10-13] MED LIST changes: +DRON400T2; +GLYB5TAB6; +HYDR25TA4; +LACT1CAP8 PO; +LACT1POW8 MC; +METF-397; +ONDA4TAB11 PO; +PRAV20TA3; -RIVA20TA PO
--- NOTE | 2018-10-13 17:55 | Diagnostic Imaging Report ---
EXAMINATION: Pelvis and bilateral hips at 2:18 p.m. INDICATION: Chronic hip pain. FINDINGS: A single AP view of the pelvis and AP and lateral views of both hip joints were obtained. There is no fracture, dislocation or acute bony abnormality evident. There is mild degenerative disease involving the hip and sacroiliac joints. The degenerative changes have not progressed since the prior exam of 11/21/2013. The soft tissues are unremarkable for an acute abnormality. As noted on the prior exam there are surgical clips in the soft tissues of the medial aspect of each thigh. Incidental note is also made of a medication tablet overlying the right sacroiliac joint. IMPRESSION: 1. There is no evidence for an acute bony abnormality. When compare the prestudy there has been no significant change. 2. If clinical concern regarding an underlying abnormality persists and further imaging is desired, then MRI would be recommended. Dictated by: Dictated on workstation # [id number]
== END ==
LOC: RAD 13:59
PROVIDERS: ATTEND Nurse Practitioner Adult Health
DX: G89.29 Other chronic pain (principal); M25.551 Pain in right hip; M25.552 Pain in left hip; Z85.3 Personal history of malignant neoplasm of breast; Z98.890 Other specified postprocedural states
CPT/HCPCS: 73523

== ENCOUNTER 2018-10-23 12:45 | Emergency (ER) | payer MEDICARE, OTHER | END 2018-10-23 14:21 | disposition home or self-care (01) | LOC: ER 12:45 ==

== ENCOUNTER 2019-01-12 07:32 | Emergency (ER) | payer MEDICARE, OTHER ==
[~2019-01-12] VITALS: Ht 160 cm; Wt 81.3 kg
[~2019-01-12 07:32] MED LIST changes: +CYCL10TA9 PO; +TRAM50TA2 PO
[2019-01-12] MEDS ORDERED: ORPHENADRINE 60 MG/2 ML (NORFLEX) AMP IV ONE (08:15)
[2019-01-12] MEDS ORDERED: fentaNYL INJECTION 100 MCG/2 ML AMP IVP ONE (08:15)
--- NOTE | 2019-01-12 08:24 | ED Back Pain ---
General Chief Complaint: Back Problems Stated Complaint: BACK PAIN Nursing Triage Note: PT PRESENTS TO ED WITH COMPLAINTS OF LOW BACK AND HIP PAIN THAT WOKE HER UP FROM HER SLEEP. PT REPORTS SHE HAS HAD A PINCHED NEVER IN HER BACK THAT FLAIRS UP. 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 Nursing Sepsis Screen: No Definite Risk Source of Information: Patient Exam Limitations: No Limitations (MARVIN ADAMSON STUDENT) History of Present Illness Date Seen by Provider: Jan 12, 2019 Time Seen by Provider: 08:40 Initial Comments This 73 year old female presents via EMS for intense lumbar back pain that woke her up. The pain has come and gone for three days since she injured it lifting a quilt. The pain is currently 5/10 with intense short spasms of 10/10. She has history of polymyalgia rheumatica and occasionally takes tylenol for back pain. Nothing has been taken so far today to relieve pain. Location: [facility] Spine (MARVIN ADAMSON STUDENT) Time Seen by Provider: 07:57 (LEONIDES GOMEZ MD) Allergies and Home Medications Allergies Coded Allergies: amiodarone (Verified Allergy, Intermediate, 07/29/07) butorphanol (Verified Allergy, Intermediate, 07/29/07) codeine (Verified Allergy, Intermediate, 07/29/07) epinephrine (Verified Allergy, Intermediate, 07/29/07) hydrocodone (Verified Allergy, Intermediate, 07/29/07) morphine (Verified Allergy, Intermediate, 07/29/07) Home Medications Aspirin 81 Mg Tab.chew, 81 MG PO HS, (Reported) Cyanocobalamin 1,000 Mcg/Ml Inj, 1,000 MCG IJ MONTHLY, (Reported) Cyclobenzaprine HCl 10 Mg Tablet, 10 MG PO Q8H PRN for SPASMS Prescribed by: KAMILA HITCHCOCK on 10/23/18 1418 Diltiazem HCl 240 Mg Cap.er.24h, 240 MG PO DAILY, (Reported) Dronedarone HCl 400 Mg Tablet, 400 MG PO BID, (Reported) Fenofibric Acid (Choline) 135 Mg Capsule.dr, 135 MG PO HS, (Reported) Ferrous Sulfate 325 Mg Tablet, 325 MG PO HS, (Reported) Lactobacillus Acidophilus 1 Each Capsule, 2 EACH PO QID Prescribed by: INOCENCIO WALL on 06/04/18 0555 Lactobacillus Acidophilus 1 Gm Powder, 1 GM MC QID Prescribed by: INOCENCIO WALL on 06/04/18 0654 Levocetirizine Dihydrochloride 5 Mg Tablet, 5 MG PO HS, (Reported) Losartan Potassium 100 Mg Tablet, 100 MG PO HS, (Reported) Metoprolol Succinate 200 Mg Tab.er.24h, 200 MG PO DAILY, (Reported) Multivitamin 1 Each Tablet, 1 TAB PO DAILY, (Reported) [place]-3/Dha/Epa/Fish Oil 1 Each Capsule.dr, 1,400 MG PO BID, (Reported) Ondansetron 4 Mg Tab.rapdis, 4 MG PO Q4H Prescribed by: INOCENCIO WALL on 06/04/18 0555 Potassium Chloride 10 Meq Tab.er.prt, 10 MEQ PO HS, (Reported) Rivaroxaban 20 Mg Tablet, 20 MG PO HS, (Reported) Tizanidine HCl 2 Mg Capsule, 2 MG PO TID PRN for SPASMS Prescribed by: LEONIDES GRAF on 01/12/19 1012 Tramadol HCl 50 Mg Tablet, 50 MG PO Q6H PRN for PAIN Prescribed by: KAMILA HITCHCOCK on 10/23/18 1418 Tramadol HCl 50 Mg Tablet, 25-50 MG PO Q6H PRN for PAIN-BREAKTHROUGH Prescribed by: LEONIDES GRAF on 01/12/19 1012 Patient Home Medication List Home Medication List Reviewed: Yes (MARVIN ADAMSON STUDENT) Home Medication List Reviewed: Yes (LEONIDES GOMEZ MD) Review of Systems Constitutional: malaise, weakness EENTM: no symptoms reported Respiratory: no symptoms reported Cardiovascular: no symptoms reported Gastrointestinal: no symptoms reported Genitourinary: no symptoms reported : No Musculoskeletal: see HPI Skin: no symptoms reported Psychiatric/Neurological: No Symptoms Reported (MARVIN ADAMSON STUDENT) Past Shmzfcx-Ianojt-Vswjtj Hx Past Med/Social Hx: Reviewed and Corrections made (MARVIN ADAMSON STUDENT) Patient Social History Alcohol Use: Denies Use Recreational Drug Use: No Smoking Status: Never a Smoker 2nd Hand Smoke Exposure: No Recent Foreign Travel: No Contact w/Someone Who Travel: No Recent Infectious Disease Expo: No Recent Hopitalizations: No Physical Abuse: No Sexual Abuse: No Mistreated: No Fear: No (MARVIN ADAMSON STUDENT) Immunizations Up To Date Date of Pneumonia Vaccine: Nov 12, 2008 Date of Influenza Vaccine: Jan 13, 2017 (MARVIN ADAMSON STUDENT) Seasonal Allergies Seasonal Allergies: No (MARVIN ADAMSON STUDENT) Past Medical History Surgeries: Yes (l breast mastectomy) Appendectomy, Breast, Cardiac, CABG, Section, Hysterectomy, Orthopedic Respiratory: No Cardiac: Yes Atrial Fibrillation, Chronic Edema/Swelling, Coronary Artery Disease, High Cholesterol, Hypertension Neurological: No : No Reproductive Disorders: No 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 Genitourinary: Yes (stage 3 kidney failure) Kidney Stones, Renal Failure (stage 3 CKD) Gastrointestinal: Yes Gastroesophageal Reflux, Hiatal Hernia Musculoskeletal: Yes Arthritis, Rheumatoid Arthritis (polymyalgia Rhuematica) Endocrine: Yes Diabetes, Non-Insulin dep HEENT: Yes Cataract Loss of Vision: Denies Hearing Impairment: Denies Cancer: Yes Breast Did You Recieve Any Treatments: Yes What Type of Treatment Did You: Surgical Intervention Psychosocial: No Integumentary: No Blood Disorders: No (MARVIN ADAMSON STUDENT) Physical Exam Vital Signs Vital Signs - First Documented 01/12/19 07:38 Temp 37.2 Pulse 85 Resp 18 B/P (MAP) 187/87 (120) Pulse Ox 95 (LEONIDES GOMEZ MD) Vital Signs Capillary Refill : Less Than 3 Seconds (MARVIN ADAMSON STUDENT) Height, Weight, BMI Height: 5'3.00" Weight: 180lbs. 0.0oz. 81.769246gw; 31.00 BMI Method:Stated General Appearance: Moderate Distress, Obese Cardiovascular: No Edema, Irregularly Irregular Respiratory: Normal Breath Sounds, No Respiratory Distress Gastrointestinal: Non Tender, Soft Back: Muscle Spasm Extremity: Normal Inspection Neurologic/Psychiatric: Alert, Oriented x3 Skin: Normal Color, Warm/Dry (MARVIN ADAMSON STUDENT) Progress/Results/Core Measures Results/Orders My Orders Orders - LEONIDES GOMEZ MD Ed Iv/Invasive Line Start (01/12/19 08:03) Orphenadrine Injection (Norflex Injectio (01/12/19 08:15) Fentanyl Injection (Sublimaze Injection (01/12/19 08:15) Tramadol Tablet (Ultram Tablet) (01/12/19 10:15) (LEONIDES GOMEZ MD) Medications Given in ED Current Medications Medications Dose Ordered Sig/Toire Route Start Time Stop Time Status Last Admin Dose Admin Fentanyl Citrate 50 mcg ONCE ONCE IVP 01/12/19 08:15 01/12/19 08:16 DC 01/12/19 08:47 50 MCG Orphenadrine Citrate 60 mg ONCE ONCE IV 01/12/19 08:15 01/12/19 08:16 DC 01/12/19 08:46 60 MG Tramadol HCl 25 mg ONCE ONCE PO 01/12/19 10:15 01/12/19 10:16 DC 01/12/19 10:23 25 MG (LEONIDES GOMEZ MD) Vital Signs/I&O 01/12/19 01/12/19 07:38 10:46 Temp 37.2 37.2 Pulse 85 70 Resp 18 18 B/P (MAP) 187/87 (120) 156/67 (120) Pulse Ox 95 96 (LEONIDES GOMEZ MD) Blood Pressure Mean: 120 Departure Impression Primary Impression: Back spasm Additional Impression: Polymyalgia rheumatica Disposition: 01 HOME, SELF-CARE Condition: Improved Departure-Patient Inst. Decision time for Depature: 10:08 (LEONIDES GOMEZ MD) Referrals: LUDY DEL CID DO (PCP/Family) Primary Care Physician Patient Instructions: Muscle Spasms (DC) Add. Discharge Instructions: Drink plenty of clear liquids to stay well-hydrated. 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 Please call your machine castings plasterer today and discuss increasing prednisone dosing to help with spasms and inflammation. For pain you may take Tylenol (acetaminophen) along with tramadol (Ultram) as prescribed. Ultram may cause drowsiness so use with caution. It may also cause constipation so you may wish to use a stool softener along with it. Zanaflex is being prescribed as a muscle relaxer. If you do not use this medication before, please use with caution as it may cause drowsiness as well. You may use gentle heat on your lower back to help relax muscles. Return to care if you have worsening symptoms despite these interventions. All discharge instructions reviewed with patient and/or family. Voiced understanding. Scripts Tramadol HCl (Ultram) 50 Mg Tablet 25-50 MG PO Q6H PRN for PAIN-BREAKTHROUGH, #20 TAB Prov: LEONIDES GOMEZ MD 01/12/19 Tizanidine HCl (Zanaflex) 2 Mg Capsule 2 MG PO TID PRN for SPASMS, #10 CAP Prov: LEONIDES GOMEZ MD 01/12/19 This patient was interviewed and examined by me along with YARY Conde student. I agree with his history, exam, and documentation with the following additions and corrections. This 73-year-old woman presents to the emergency room via EMS with complaints of intense left lower back spasm. She denies any blunt trauma. She has a history of polymyalgia rheumatica and is presently on continuous steroid therapy. Gen.: Alert, oriented, mild distress during spasms HEENT: Normocephalic and atraumatic Heart: Regular rate and rhythm without murmur Lungs: Clear to auscultation bilaterally with normal effort Abdomen: Soft, nontender, nondistended Extremities: Normal to inspection with no tenderness. No pain with range of motion. Back: Tenderness in the left lumbar paraspinous muscles. Skin: Warm and dry without rashes Neuropsych: Alert, oriented, in no acute distress, no focal deficits Patient was treated with fentanyl and Norflex with good results. Pain was starting to creep back in. Ultram was given prior to dismissal. See discharge instructions. (LEONIDES GOMEZ MD) Copy Copies To 1: LUDY DEL CID NICK PA STUDENT Jan 12, 2019 08:24 LEONIDES GOMEZ MD Jan 12, 2019 10:12
[2019-01-12] MEDS ORDERED: TIZA2CAP PO (10:12)
[2019-01-12] MEDS ORDERED: TRAM-42 PO (10:12)
[2019-01-12 10:46] VITALS: BP 156/67
== END 2019-01-12 10:46 | disposition home or self-care (01) ==
LOC: ER 07:33
DX: M62.830 Muscle spasm of back (principal); M35.3 Polymyalgia rheumatica; I12.9 Hypertensive chronic kidney disease with stage 1 through stage 4 chronic kidney disease, or unspecified chronic kidney disease; E11.22 Type 2 diabetes mellitus with diabetic chronic kidney disease; N18.3 Chronic kidney disease, stage 3 (moderate); E78.00 Pure hypercholesterolemia, unspecified; I25.10 Atherosclerotic heart disease of native coronary artery without angina pectoris; I48.91 Unspecified atrial fibrillation; K21.9 Gastro-esophageal reflux disease without esophagitis; M06.9 Rheumatoid arthritis, unspecified; Z87.442 Personal history of urinary calculi; Z88.8 Allergy status to other drugs, medicaments and biological substances; Z88.5 Allergy status to narcotic agent; Z79.82 Long term (current) use of aspirin; Z90.49 Acquired absence of other specified parts of digestive tract; Z95.1 Presence of aortocoronary bypass graft; Z90.710 Acquired absence of both cervix and uterus; Z85.3 Personal history of malignant neoplasm of breast

== ENCOUNTER → 2019-04-24 | Outpatient (CLI) | payer MEDICARE, OTHER ==
[~2019-04-24] MED LIST changes: +TIZA2CAP PO; +TRAM-42 PO
[2019-04-24 14:49] LABS: BASOPHILS % (AUTO) 0 % (0-10); EOSINOPHILS # (AUTO) 0.1 10^3/uL (0.0-0.3); EOSINOPHILS % (AUTO) 1 % (0-10); HEMATOCRIT 40 % (35-52); HEMOGLOBIN 13.5 G/DL (11.5-16.0); LYMPHOCYTES # (AUTO) 1.3 X 10^3 (1.0-4.0); LYMPHOCYTES % (AUTO) 13 % (12-44); MEAN CORPUSCULAR HEMOGLOBIN 30 PG (25-34); MEAN CORPUSCULAR HGB CONC 34 G/DL (32-36); MEAN CORPUSCULAR VOLUME 89 FL (80-99); MEAN PLATELET VOLUME 12.2 FL (7.4-10.4); MONOCYTES # (AUTO) 0.5 X 10^3 (0.0-1.0); MONOCYTES % (AUTO) 5 % (0-12); NEUTROPHILS # (AUTO) 8.1 X 10^3 (1.8-7.8); NEUTROPHILS % (AUTO) 81 % (42-75); PLATELET COUNT 238 10^3/uL (130-400); RED CELL DISTRIBUTION WIDTH 15.4 % (10.0-14.5)
[2019-04-24 15:17] LABS: ALBUMIN 4.3 GM/DL (3.2-4.5); BILIRUBIN,TOTAL 0.5 MG/DL (0.1-1.0); CALCIUM 10.5 MG/DL (8.5-10.1); CREATININE SERUM 1.2 MG/DL (0.60-1.30); POTASSIUM 3.9 MMOL/L (3.6-5.0); TOTAL PROTEIN 7.1 GM/DL (6.4-8.2)
== END ==
LOC: EDSTATUS 01-12 14:09 → ONC 14:10
PROVIDERS: ATTEND Internal Medicine Hematology & Oncology
DX: C50.412 Malignant neoplasm of upper-outer quadrant of left female breast (principal); I89.0 Lymphedema, not elsewhere classified; N18.3 Chronic kidney disease, stage 3 (moderate); I48.91 Unspecified atrial fibrillation; M35.3 Polymyalgia rheumatica; M48.00 Spinal stenosis, site unspecified; M48.50XA Collapsed vertebra, not elsewhere classified, site unspecified, initial encounter for fracture; Z90.12 Acquired absence of left breast and nipple; Z79.899 Other long term (current) drug therapy
CPT/HCPCS: 80053; 85025; 99213

== ENCOUNTER → 2019-11-23 | Outpatient (CLI) | payer MEDICARE, OTHER ==
[~2019-11-23] MED LIST changes: -DILT240C PO; +DILT240C91 PO; +MULT-567 PO; -MULT1TAB69 PO; -TRAM50TA2 PO; +TRM50T PO
[2019-11-23 13:04] LABS: BASOPHILS % (AUTO) 1 % (0-10); EOSINOPHILS # (AUTO) 0.1 10^3/uL (0.0-0.3); EOSINOPHILS % (AUTO) 3 % (0-10); HEMATOCRIT 38 % (35-52); HEMOGLOBIN 12.7 G/DL (11.5-16.0); LYMPHOCYTES # (AUTO) 1.7 X 10^3 (1.0-4.0); LYMPHOCYTES % (AUTO) 39 % (12-44); MEAN CORPUSCULAR HEMOGLOBIN 30 PG (25-34); MEAN CORPUSCULAR HGB CONC 34 G/DL (32-36); MEAN CORPUSCULAR VOLUME 88 FL (80-99); MEAN PLATELET VOLUME 11.7 FL (7.4-10.4); MONOCYTES # (AUTO) 0.4 X 10^3 (0.0-1.0); MONOCYTES % (AUTO) 8 % (0-12); NEUTROPHILS # (AUTO) 2.2 X 10^3 (1.8-7.8); NEUTROPHILS % (AUTO) 49 % (42-75); PLATELET COUNT 175 10^3/uL (130-400); RED CELL DISTRIBUTION WIDTH 17.8 % (10.0-14.5); WHITE BLOOD COUNT 4.4 10^3/uL (4.3-11.0)
[2019-11-23 13:25] LABS: ALBUMIN 4.2 GM/DL (3.2-4.5); BILIRUBIN,TOTAL 0.6 MG/DL (0.1-1.0); CALCIUM 9.5 MG/DL (8.5-10.1); CREATININE SERUM 1.06 MG/DL (0.60-1.30); POTASSIUM 3.7 MMOL/L (3.6-5.0); TOTAL PROTEIN 6.6 GM/DL (6.4-8.2)
== END ==
LOC: ONC 12:46
PROVIDERS: ATTEND Internal Medicine Hematology & Oncology
DX: I89.0 Lymphedema, not elsewhere classified (principal); I25.10 Atherosclerotic heart disease of native coronary artery without angina pectoris; M35.3 Polymyalgia rheumatica; M48.061 Spinal stenosis, lumbar region without neurogenic claudication; I48.91 Unspecified atrial fibrillation; M85.88 Other specified disorders of bone density and structure, other site; M48.56XA Collapsed vertebra, not elsewhere classified, lumbar region, initial encounter for fracture; K21.9 Gastro-esophageal reflux disease without esophagitis; E78.00 Pure hypercholesterolemia, unspecified; I12.9 Hypertensive chronic kidney disease with stage 1 through stage 4 chronic kidney disease, or unspecified chronic kidney disease; N18.3 Chronic kidney disease, stage 3 (moderate); E78.2 Mixed hyperlipidemia; Z92.21 Personal history of antineoplastic chemotherapy; Z90.12 Acquired absence of left breast and nipple; Z85.3 Personal history of malignant neoplasm of breast
CPT/HCPCS: 80053; 85025; G0463; 99213

== ENCOUNTER 2020-02-05 17:54 | Emergency (ER) | payer MEDICARE, OTHER ==
[~2020-02-05] VITALS: Ht 160 cm; Wt 89.0 kg
[~2020-02-05 17:54] MED LIST changes: -PANT40TA3 PO; +PANT40TA52 PO
--- NOTE | 2020-02-05 18:53 | ED Lower Extremity ---
General Chief Complaint: Lower Extremity Stated Complaint: LEFT ANKLE SKIN PROBLEM Nursing Triage Note: AMB TO ROOM NOTICED AREA ON L ANKLE ON WEDNESDAY. ON WEDNESDAY WAS SEEN BY AND STARTED ON KEFLEX AND PREDISONE. Nursing Sepsis Screen: No Definite Risk Source: patient Exam Limitations: no limitations History of Present Illness Date Seen by Provider: Feb 05, 2020 Time Seen by Provider: 18:50 Initial Comments To ER with reports of a reddened painful area over the lateral malleolus left leg 4 days ago. She saw her primary care provider 3 days ago and was started on prednisone and Keflex. Denies improvement. Unable to sleep at night because of pain. Onset: last week Severity: moderate Pain/Injury Location: left ankle Method of Injury: unknown Modifying Factors: Worse With Movement Allergies and Home Medications Allergies Coded Allergies: amiodarone (Verified Allergy, Intermediate, 07/29/07) butorphanol (Verified Allergy, Intermediate, 07/29/07) codeine (Verified Allergy, Intermediate, 07/29/07) epinephrine (Verified Allergy, Intermediate, 07/29/07) hydrocodone (Verified Allergy, Intermediate, 07/29/07) morphine (Verified Allergy, Intermediate, 07/29/07) Home Medications Aspirin 81 Mg Tab.chew, 81 MG PO HS, (Reported) Cyanocobalamin 1,000 Mcg/Ml Inj, 1,000 MCG IJ MONTHLY, (Reported) Cyclobenzaprine HCl 10 Mg Tablet, 10 MG PO Q8H PRN for SPASMS Prescribed by: KAMILA HITCHCOCK on 10/23/18 1418 Diltiazem HCl 240 Mg Cap.er.24h, 240 MG PO DAILY, (Reported) Dronedarone HCl 400 Mg Tablet, 400 MG PO BID, (Reported) Fenofibric Acid (Choline) 135 Mg Capsule.dr, 135 MG PO HS, (Reported) Ferrous Sulfate 325 Mg Tablet, 325 MG PO HS, (Reported) Lactobacillus Acidophilus 1 Each Capsule, 2 EACH PO QID Prescribed by: INOCENCIO WALL on 06/04/18 0555 Lactobacillus Acidophilus 1 Gm Powder, 1 GM MC QID Prescribed by: INOCENCIO WALL on 06/04/18 0654 Levocetirizine Dihydrochloride 5 Mg Tablet, 5 MG PO HS, (Reported) Losartan Potassium 100 Mg Tablet, 100 MG PO HS, (Reported) Metoprolol Succinate 200 Mg Tab.er.24h, 200 MG PO DAILY, (Reported) Multivitamin 1 Each Tablet, 1 TAB PO DAILY, (Reported) [place]-3/Dha/Epa/Fish Oil 1 Each Capsule.dr, 1,400 MG PO BID, (Reported) Ondansetron 4 Mg Tab.rapdis, 4 MG PO Q4H Prescribed by: INOCENCIO WALL on 06/04/18 0555 Potassium Chloride 10 Meq Tab.er.prt, 10 MEQ PO HS, (Reported) Rivaroxaban 20 Mg Tablet, 20 MG PO HS, (Reported) Tizanidine HCl 2 Mg Capsule, 2 MG PO TID PRN for SPASMS Prescribed by: LEONIDES GRAF on 01/12/19 1012 Tramadol HCl 50 Mg Tablet, 50 MG PO Q6H PRN for PAIN Prescribed by: KAMILA HITCHCOCK on 10/23/18 1418 Tramadol HCl 50 Mg Tablet, 25-50 MG PO Q6H PRN for PAIN-BREAKTHROUGH Prescribed by: LEONIDES GRAF on 01/12/19 1012 Patient Home Medication List Home Medication List Reviewed: Yes Review of Systems Constitutional: see HPI; No chills, No fever EENTM: see HPI Respiratory: no symptoms reported Cardiovascular: no symptoms reported Genitourinary: no symptoms reported Musculoskeletal: see HPI Skin: see HPI Psychiatric/Neurological: No Symptoms Reported Past Epqrhse-Eqzmks-Usksij Hx Patient Social History Alcohol Use: Denies Use Recreational Drug Use: No Smoking Status: Never a Smoker 2nd Hand Smoke Exposure: No Recent Foreign Travel: No Contact w/Someone Who Travel: No Recent Infectious Disease Expo: No Recent Hopitalizations: No Immunizations Up To Date Date of Pneumonia Vaccine: Nov 12, 2008 Date of Influenza Vaccine: Jan 13, 2017 Seasonal Allergies Seasonal Allergies: No Past Medical History Surgeries: Yes (l breast mastectomy) Appendectomy, Breast, Cardiac, CABG, Section, Hysterectomy, Orthopedic Respiratory: No Cardiac: Yes Atrial Fibrillation, Chronic Edema/Swelling, Coronary Artery Disease, High Cholesterol, Hypertension Neurological: No Reproductive Disorders: No 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 Genitourinary: Yes (stage 3 kidney failure) Kidney Stones, Renal Failure Gastrointestinal: Yes Gastroesophageal Reflux, Hiatal Hernia Musculoskeletal: Yes Arthritis, Rheumatoid Arthritis Endocrine: Yes Diabetes, Non-Insulin dep HEENT: Yes Cataract Loss of Vision: Denies Hearing Impairment: Denies Cancer: Yes Breast Did You Recieve Any Treatments: Yes What Type of Treatment Did You: Surgical Intervention Psychosocial: No Integumentary: No Blood Disorders: No Physical Exam Vital Signs Vital Signs - First Documented 02/05/20 18:25 Temp 36.8 Pulse 54 Resp 18 B/P (MAP) 144/65 (91) Pulse Ox 96 O2 Delivery Room Air Capillary Refill : Less Than 3 Seconds Height, Weight, BMI Height: 5'3.00" Weight: 180lbs. 0.0oz. 81.776341nc; 34.00 BMI Method:Stated General Appearance: WD/WN, no apparent distress Respiratory: no respiratory distress, no accessory muscle use Hips: bilateral hip non-tender, bilateral hip normal inspection, bilateral hip normal range of motion Legs: bilateral leg non-tender, bilateral leg normal inspection, bilateral leg normal range of motion Knees: bilateral knee non-tender, bilateral knee normal inspection, bilateral knee normal range of motion Ankles: left ankle other (induration, deep red erythema with a central 4 mm purpleish area over the lateral malleolus. There is edema over the dorsum of the foot but the erythema is confined over the lateral malleolus.) Neurologic/Psychiatric: alert, normal mood/affect, oriented x 3 Skin: normal color, warm/dry Progress/Results/Core Measures Results/Orders Lab Results Laboratory Tests Test 02/05/20 19:10 Range/Units White Blood Count 8.6 4.3-11.0 10^3/uL Red Blood Count 4.05 3.80-5.11 10^6/uL Hemoglobin 11.8 11.5-16.0 g/dL Hematocrit 35 35-52 % Mean Corpuscular Volume 87 80-99 fL Mean Corpuscular Hemoglobin 29 25-34 pg Mean Corpuscular Hemoglobin Concent 33 32-36 g/dL Red Cell Distribution Width 16.8 H 10.0-14.5 % Platelet Count 161 130-400 10^3/uL Mean Platelet Volume 11.6 9.0-12.2 fL Immature Granulocyte % (Auto) 1 % Neutrophils (%) (Auto) 77 H 42-75 % Lymphocytes (%) (Auto) 14 12-44 % Monocytes (%) (Auto) 7 0-12 % Eosinophils (%) (Auto) 0 0-10 % Basophils (%) (Auto) 0 0-10 % Neutrophils # (Auto) 6.7 1.8-7.8 10^3/uL Lymphocytes # (Auto) 1.2 1.0-4.0 10^3/uL Monocytes # (Auto) 0.6 0.0-1.0 10^3/uL Eosinophils # (Auto) 0.0 0.0-0.3 10^3/uL Basophils # (Auto) 0.0 0.0-0.1 10^3/uL Immature Granulocyte # (Auto) 0.1 0.0-0.1 10^3/uL My Orders Orders - EFE LARA APRN Cbc With Automated Diff (02/05/20 18:48) Hs C Reactive Protein (02/05/20 18:48) Basic Metabolic Panel (02/05/20 18:48) Ed Iv/Invasive Line Start (02/05/20 18:48) Ceftriaxone For Iv Use (Rocephin For I (02/05/20 19:00) Medications Given in ED Current Medications Medications Dose Ordered Sig/Torie Route Start Time Stop Time Status Last Admin Dose Admin Ceftriaxone Sodium 1000 mg/ Sterile Water 10 ml @ 200 mls/hr ONCE ONCE IV 02/05/20 19:00 02/05/20 19:02 DC 02/05/20 19:37 200 MLS/HR Vital Signs/I&O 02/05/20 18:25 Temp 36.8 Pulse 54 Resp 18 B/P (MAP) 144/65 (91) Pulse Ox 96 O2 Delivery Room Air Blood Pressure Mean: 91 Departure Impression Primary Impression: Cellulitis of ankle Disposition: 01 HOME, SELF-CARE Condition: Stable Departure-Patient Inst. Decision time for Depature: 19:49 Referrals: LUDY HICKS DO (PCP/Family) Primary Care Physician Patient Instructions: Cellulitis and Erysipelas (Skin Infections) Add. Discharge Instructions: 1. Continue the prednisone. Stop the Keflex and change to doxycycline. Return to ER for any worsening. Call Dr. Hicks tomorrow to make an appointment to be seen for follow-up. All discharge instructions reviewed with patient and/or family. Voiced understanding. Scripts Doxycycline Hyclate (Doxycycline Hyclate) 100 Mg Tablet 100 MG PO BID, #20 TAB 0 Refills Prov: EFE LARA APRN 10/5/20 Copy Copies To 1: LUDY HICKS PETER J APRN Feb 05, 2020 18:53
[2020-02-05] MEDS ORDERED: cefTRIAXone FOR IV USE 1,000 MG in WATER (STERILE) FOR INJECTION 10 ML IV ONE (19:00)
--- NOTE | 2020-02-05 19:13 | NUR ---
REPORT TO [facility]
--- NOTE | 2020-02-05 19:13 | NUR ---
assumed care of this patient at this time.
--- NOTE | 2020-02-05 19:15 | NUR ---
Elijah youngesperanza in [place] - 02/05/20 at 2015 by [id number] assumed care of this patient at this time.
[2020-02-05 19:23] LABS: BASOPHILS % (AUTO) 0 % (0-10); EOSINOPHILS % (AUTO) 0 % (0-10); HEMATOCRIT 35 % (35-52); HEMOGLOBIN 11.8 g/dL (11.5-16.0); LYMPHOCYTES # (AUTO) 1.2 10^3/uL (1.0-4.0); LYMPHOCYTES % (AUTO) 14 % (12-44); MEAN CORPUSCULAR HEMOGLOBIN 29 pg (25-34); MEAN CORPUSCULAR HGB CONC 33 g/dL (32-36); MEAN CORPUSCULAR VOLUME 87 fL (80-99); MEAN PLATELET VOLUME 11.6 fL (9.0-12.2); MONOCYTES # (AUTO) 0.6 10^3/uL (0.0-1.0); MONOCYTES % (AUTO) 7 % (0-12); NEUTROPHILS # (AUTO) 6.7 10^3/uL (1.8-7.8); NEUTROPHILS % (AUTO) 77 % (42-75); PLATELET COUNT 161 10^3/uL (130-400); WHITE BLOOD COUNT 8.6 10^3/uL (4.3-11.0)
[2020-02-05 19:49] LABS: CALCIUM 9.8 MG/DL (8.5-10.1); CREATININE SERUM 1.05 MG/DL (0.60-1.30); POTASSIUM 3.6 MMOL/L (3.6-5.0)
[2020-02-05] MEDS ORDERED: DOXY100T2 PO (19:56)
[2020-02-05 20:30] VITALS: BP 144/65
== END 2020-02-05 20:31 | disposition home or self-care (01) ==
LOC: EDUNIT# 17:54 → ER 17:55
DX: L03.116 Cellulitis of left lower limb (principal); I10 Essential (primary) hypertension; I48.91 Unspecified atrial fibrillation; E78.00 Pure hypercholesterolemia, unspecified; Z85.3 Personal history of malignant neoplasm of breast; Z95.1 Presence of aortocoronary bypass graft; Z79.01 Long term (current) use of anticoagulants; Z79.82 Long term (current) use of aspirin; Z88.5 Allergy status to narcotic agent; Z88.8 Allergy status to other drugs, medicaments and biological substances
CPT/HCPCS: 36415; 80048; 85025; 86141

== ENCOUNTER 2020-02-11 12:30 | Outpatient (RCR) | payer MEDICARE, OTHER ==
[2020-02-09 11:50] VITALS: BP 144/87
[2020-02-09] MEDS: LEVOFLOXACIN 500 MG/D5W 100 ML (PRE-MIX) IV SCH (12:21)
[2020-02-10] MEDS: LEVOFLOXACIN 500 MG/D5W 100 ML (PRE-MIX) IV SCH (12:20)
[2020-02-10 13:20] VITALS: BP 123/58
[~2020-02-11] VITALS: Ht 160 cm; Wt 89.0 kg
[2020-02-11 12:30] VITALS: BP 128/55
[~2020-02-11 12:30] MED LIST changes: +DOXY100T2 PO
[2020-02-11] MEDS: LEVOFLOXACIN 500 MG/D5W 100 ML (PRE-MIX) IV SCH (12:38)
== END 2020-05-09 | disposition home or self-care (01) ==
LOC: SDC 12:30
PROVIDERS: ATTEND Internal Medicine
DX: L03.116 Cellulitis of left lower limb (principal)
CPT/HCPCS: 96365

== ENCOUNTER → 2020-10-23 | Outpatient (CLI) | payer MEDICARE, OTHER ==
[~2020-10-23] MED LIST changes: -DRON400T2; +DRON400T6; +DRON400T6 PO; +GLBR5T; -GLYB5TAB6
== END ==
LOC: CARD 12:44
PROVIDERS: ATTEND Physician Assistant
DX: I25.10 Atherosclerotic heart disease of native coronary artery without angina pectoris (principal); I11.9 Hypertensive heart disease without heart failure; I34.0 Nonrheumatic mitral (valve) insufficiency
CPT/HCPCS: 93306

== ENCOUNTER → 2020-11-18 | Outpatient (CLI) | payer OTHER, MEDICARE ==
[2020-11-18 14:49] LABS: BASOPHILS % (AUTO) 1 % (0-10); EOSINOPHILS # (AUTO) 0.1 10^3/uL (0.0-0.3); EOSINOPHILS % (AUTO) 3 % (0-10); HEMATOCRIT 37 % (35-52); HEMOGLOBIN 12.1 g/dL (11.5-16.0); LYMPHOCYTES # (AUTO) 1.7 10^3/uL (1.0-4.0); LYMPHOCYTES % (AUTO) 34 % (12-44); MEAN CORPUSCULAR HEMOGLOBIN 29 pg (25-34); MEAN CORPUSCULAR HGB CONC 33 g/dL (32-36); MEAN CORPUSCULAR VOLUME 89 fL (80-99); MONOCYTES # (AUTO) 0.3 10^3/uL (0.0-1.0); MONOCYTES % (AUTO) 6 % (0-12); NEUTROPHILS # (AUTO) 2.7 10^3/uL (1.8-7.8); NEUTROPHILS % (AUTO) 56 % (42-75); PLATELET COUNT 174 10^3/uL (130-400); WHITE BLOOD COUNT 4.9 10^3/uL (4.3-11.0)
[2020-11-18 15:07] LABS: ALBUMIN 4.2 GM/DL (3.2-4.5); BILIRUBIN,TOTAL 0.7 MG/DL (0.1-1.0); CALCIUM 9.7 MG/DL (8.5-10.1); CREATININE SERUM 1.35 MG/DL (0.60-1.30); POTASSIUM 4.4 MMOL/L (3.6-5.0); TOTAL PROTEIN 6.9 GM/DL (6.4-8.2)
== END ==
LOC: ONC 14:28
PROVIDERS: ATTEND Internal Medicine Hematology & Oncology
DX: Z12.31 Encounter for screening mammogram for malignant neoplasm of breast (principal); I89.0 Lymphedema, not elsewhere classified; N18.30 Chronic kidney disease, stage 3 unspecified; M80.08XA Age-related osteoporosis with current pathological fracture, vertebra(e), initial encounter for fracture; M35.3 Polymyalgia rheumatica; I48.0 Paroxysmal atrial fibrillation; E78.00 Pure hypercholesterolemia, unspecified; I25.10 Atherosclerotic heart disease of native coronary artery without angina pectoris; Z90.12 Acquired absence of left breast and nipple; Z98.890 Other specified postprocedural states; Z92.21 Personal history of antineoplastic chemotherapy; Z79.890 Hormone replacement therapy; Z85.3 Personal history of malignant neoplasm of breast
CPT/HCPCS: 80053; 85025; G0463; 99213

== ENCOUNTER → 2020-12-02 | Outpatient (CLI) | payer MEDICARE, OTHER ==
--- NOTE | 2020-12-02 13:23 | Diagnostic Imaging Report ---
INDICATION: Routine screening. Comparison is made with prior mammogram 02/28/2018 and 02/22/2017. 2-D and 3-D unilateral right screening mammography was performed with CAD. The parenchymal pattern is stable. No mass or malignant-appearing microcalcifications are seen. There are benign calcifications in the right breast. Right axilla is unremarkable. IMPRESSION: BI-RADS Category 2 No mammographic features suspicious for malignancy are identified. ACR BI-RADS Category 2: Benign findings. Result letter will be mailed to the patient. Note: At least 10% of breast cancer is not imaged by mammography. Dictated by: Dictated on workstation # [id number]
== END ==
LOC: RAD 10:45
PROVIDERS: ATTEND Internal Medicine Hematology & Oncology
DX: Z12.31 Encounter for screening mammogram for malignant neoplasm of breast (principal)
CPT/HCPCS: 77063

== ENCOUNTER → 2020-12-18 | Outpatient (CLI) | payer MEDICARE, OTHER ==
[~2020-12-18] VITALS: Ht 157 cm; Wt 76.0 kg
[~2020-12-18] MED LIST changes: +CATHETER FLUSH 10 ML SYR IV PRN; +REGADENOSON 0.4 MG/5 ML SYR (LEXISCAN) IV ONE
[2020-12-18 09:09] VITALS: BP 176/85
--- NOTE | 2020-12-18 12:23 | Cardiology Stress Test Report ---
Stress Test Report Date of Procedure/Referring: Date of Procedure: Dec 18, 2020 Yessenia Phan Admitting Physician Dong Hicks DO Indications: CAD Baseline Heart Rate: 82 Baseline Blood Pressure: Blood Pressure Systolic: 176 Blood Pressure Diastolic: 85 Baseline Vitals Vital Signs Date Time Temp Pulse Resp B/P (MAP) Pulse Ox O2 Delivery O2 Flow Rate FiO2 12/18/20 09:09 82 176/85 (115) 97 Baseline EKG: Baseline EKG: NSR Summary After explaining the procedure to the patient, she signed a consent and then brought to the stress nuclear laboratory. Patient received 0.4 mg Lexiscan for stress test, ECG, heart rate and blood pressure were monitored continuously. Resting and stress dose of radio tracer were injected, imaging was acquired and reviewed in short axis, horizontal long axis and vertical long axis views. TID: 0.99 SSS: 1 SDS: 1 EF: 84 1. Patient tolerated Lexiscan well 2. No significant ischemia or infarction on SPECT images 3. Normal left ventricular size, EF 84% TANNER MARSHALL MD Dec 18, 2020 12:23
== END ==
LOC: CARD 07:45
PROVIDERS: ATTEND Physician Assistant
DX: I25.10 Atherosclerotic heart disease of native coronary artery without angina pectoris (principal); I10 Essential (primary) hypertension
CPT/HCPCS: 78452; 93017; A9502

== ENCOUNTER → 2021-08-07 | Outpatient (CLI) | payer MEDICARE, OTHER ==
[~2021-08-07] MED LIST changes: -CATHETER FLUSH 10 ML SYR IV PRN; +CYCL10TA25 PO; -CYCL10TA9 PO; -POTA10TA36 PO; +POTA10TA37 PO; -REGADENOSON 0.4 MG/5 ML SYR (LEXISCAN) IV ONE
--- NOTE | 2021-08-07 09:53 | Diagnostic Imaging Report ---
INDICATION: Right knee pain. AP, oblique, lateral and sunrise views of the right knee are obtained. No fracture or malalignment is identified. There is chondrocalcinosis involving the menisci. There is mild narrowing of the medial knee joint compartment. No lytic or sclerotic lesion is identified. IMPRESSION: Mild degenerative findings most pronounced in the medial compartment without acute osseous abnormality identified. Dictated by: Dictated on workstation # [id number]
== END ==
LOC: ORTHO 09:31
PROVIDERS: ATTEND Orthopaedic Surgery
DX: M17.11 Unilateral primary osteoarthritis, right knee (principal)
CPT/HCPCS: 20610; 73564; G0463

== ENCOUNTER → 2021-12-03 | Outpatient (CLI) | payer MEDICARE, OTHER ==
--- NOTE | 2021-12-03 12:42 | Diagnostic Imaging Report ---
Indication: Routine screening. Comparison is made with prior mammogram from 12/02/2020 and 02/28/2018. 2-D and 3-D bilateral screening mammography was performed with CAD. CAD is utilized. The current study was also evaluated with a Computer Aided Detection (CAD) system. Scattered fibroglandular densities in the right breast are noted. The overall parenchymal pattern appears stable. There are scattered benign calcifications. No mass or malignant-appearing microcalcifications are seen. The right axilla is unremarkable. IMPRESSION: BI-RADS Category 2 No mammographic features suspicious for malignancy are identified. ACR BI-RADS Category 2: Benign findings. Result letter will be mailed to the patient. Note: At least 10% of breast cancer is not imaged by mammography. Dictated by: Dictated on workstation # [id number]
== END ==
LOC: RAD 09:47
PROVIDERS: ATTEND Internal Medicine Hematology & Oncology
DX: Z12.31 Encounter for screening mammogram for malignant neoplasm of breast (principal); I89.0 Lymphedema, not elsewhere classified; Z85.3 Personal history of malignant neoplasm of breast
CPT/HCPCS: 77063

== ENCOUNTER → 2022-03-12 | Outpatient (CLI) | payer MEDICARE, OTHER ==
[~2022-03-12] MED LIST changes: +POTA-177 PO; -POTA10TA37 PO
--- NOTE | 2022-03-12 17:32 | Diagnostic Imaging Report ---
EXAMINATION: Left ribs radiographs. EXAM DATE: 03/12/2022 4:24 PM COMPARISON: None available. HISTORY: Left rib pain. TECHNIQUE: 3 views. FINDINGS: There is no acute fracture, dislocation, or destructive osseous process. The joint spaces are normal. The soft tissues are normal. IMPRESSION: No acute osseous abnormality. Dictated by: Dictated on workstation # [id number]
== END ==
LOC: RAD 15:29
PROVIDERS: ATTEND Internal Medicine
DX: R07.81 Pleurodynia (principal)
CPT/HCPCS: 71100

== ENCOUNTER → 2022-12-02 | Outpatient (CLI) | payer MEDICARE, OTHER ==
[~2022-12-02] MED LIST changes: -LOSA100T57 PO; +LOSA100T58 PO
== END ==
LOC: CARD 08:54
PROVIDERS: ATTEND Internal Medicine Cardiovascular Disease
DX: I11.9 Hypertensive heart disease without heart failure (principal); I34.0 Nonrheumatic mitral (valve) insufficiency; I25.10 Atherosclerotic heart disease of native coronary artery without angina pectoris
CPT/HCPCS: 93306

== ENCOUNTER → 2022-12-04 | Outpatient (CLI) | payer MEDICARE, OTHER ==
--- NOTE | 2022-12-04 12:09 | Diagnostic Imaging Report ---
INDICATION: Routine screening. Comparison is made with prior mammogram from 12/03/2021 and 12/02/2020. Unilateral right 2-D and 3-D screening mammography was performed with CAD. Right breast is heterogeneously dense, limiting the sensitivity of mammography. Scattered parenchymal and vascular calcifications are noted in the right breast. No mass or malignant-appearing microcalcifications are seen. Right axilla is unremarkable. IMPRESSION: No mammographic features suspicious for malignancy are identified. ACR BI-RADS Category 2: Benign findings. Result letter will be mailed to the patient. Note: At least 10% of breast cancer is not imaged by mammography. BI-RADS Category 2 Dictated by: Dictated on workstation # [id number]
== END ==
LOC: RAD 08:54
PROVIDERS: ATTEND Internal Medicine
DX: Z12.31 Encounter for screening mammogram for malignant neoplasm of breast (principal)
CPT/HCPCS: 77063

== ENCOUNTER → 2023-01-20 | Outpatient (CLI) | payer MEDICARE, OTHER ==
[~2023-01-20] VITALS: Ht 152 cm; Wt 79.0 kg
[~2023-01-20] MED LIST changes: +CATHETER FLUSH 10 ML SYR IVP PRN; +REGADENOSON 0.4 MG/5 ML SYR IV ONE
[2023-01-20 09:12] VITALS: BP 171/69
--- NOTE | 2023-01-20 11:28 | Cardiology Stress Test Report ---
Stress Test Report Date of Procedure/Referring: Date of Procedure: Jan 20, 2023 PCP Meaghan Sawant DO Admitting Physician Admitting Physician: Attending Physician: [place] Medeiros MD Indications: CP Baseline Heart Rate: 74 Baseline Blood Pressure: Blood Pressure Systolic: 171 Blood Pressure Diastolic: 69 Baseline Vitals Vital Signs Date Time Temp Pulse Resp B/P (MAP) Pulse Ox O2 Delivery O2 Flow Rate FiO2 01/20/23 09:12 91 17 171/69 (103) 98 Baseline EKG: Baseline EKG: NSR Summary After explaining the procedure to the patient, she signed a consent and then brought to the stress nuclear laboratory. Patient received 0.4 mg Lexiscan for stress test, ECG, heart rate and blood pressure were monitored continuously. Resting and stress dose of radio tracer were injected, imaging was acquired and reviewed in short axis, horizontal long axis and vertical long axis views. TID: 0.99 SSS: 4 SDS: 0 EF: 76 Patient tolerated Lexiscan well Breast attenuation with typical female pattern, no significant ischemia or inf arction noted on SPECT images Normal left ventricular size, ejection fraction 76% Copy Copies To 1: MEAGHAN SAWANT BASHAR J MD Jan 20, 2023 11:28
== END ==
LOC: CARD 07:12
PROVIDERS: ATTEND Internal Medicine Cardiovascular Disease
DX: I10 Essential (primary) hypertension (principal); I25.10 Atherosclerotic heart disease of native coronary artery without angina pectoris
CPT/HCPCS: 78452; 93017; A9502

== ENCOUNTER 2023-03-17 01:02 | Inpatient (IN) | payer MEDICARE, OTHER ==
[2023-03-17] VITALS (15 sets, daily range): BP systolic 123–180; BP diastolic 46–69
[~2023-03-17] VITALS: Ht 152 cm; Wt 82.0 kg
[~2023-03-17 01:02] MED LIST changes: -CATHETER FLUSH 10 ML SYR IVP PRN; -GLBR5T; +GLBR5T PO; -HYDR25TA4; +HYDR25TA4 PO; -PRAV20TA3; +PRAV20TA3 PO; -REGADENOSON 0.4 MG/5 ML SYR IV ONE
[2023-03-17] MEDS ORDERED: NS IV 1000 ML 1,000 ML IV STA (01:14)
[2023-03-17] MEDS ORDERED: ACETAMINOPHEN 325 MG TABLET PO ONE (01:15)
--- NOTE | 2023-03-17 01:21 | ED General ---
General Chief Complaint: Abdominal/GI Problems Stated Complaint: FEVER,CHILLS,VOMITING Source of Information: EMS Exam Limitations: Other (illness/weakness) History of Present Illness Date Seen by Provider: Mar 17, 2023 Time Seen by Provider: 01:03 Initial Comments Patient is a 77-year-old female who presents to the emergency department by ambulance from home chief complaint weakness, diarrhea, fever. Apparently the patient has been sick with diarrhea for about 3 weeks, started running fever earlier in the day. She presents tachycardic, hypoxic in the upper 80s, altered mental status profound malaise. She is very slow to respond, appears chronically ill. She is very pale with pale conjunctivae. Her abdomen is diffusely tender. Hypoactive bowel sounds. she has a systolic murmur with her tachycardia, clear lungs bilaterally. She cannot quantify the number of stools she is having a day. She is not sure if there is blood present in her stools. She lives with her son who is not yet present in the emergency department for further history. EMS reports fever 101. Timing/Duration: Other (3 weeks of diarrhea, 1 day fever) Severity: Severe Associated Systoms: Shortness of Air, Weakness Allergies and Home Medications Allergies Coded Allergies: amiodarone (Verified Allergy, Intermediate, 07/29/07) butorphanol (Verified Allergy, Intermediate, 07/29/07) codeine (Verified Allergy, Intermediate, 07/29/07) epinephrine (Verified Allergy, Intermediate, 07/29/07) hydrocodone (Verified Allergy, Intermediate, 07/29/07) morphine (Verified Allergy, Intermediate, 07/29/07) Patient Home Medication List Home Medication List Reviewed: Yes Aspirin (Aspirin) 81 Mg Tab.chew, 81 MG PO HS, (Reported) Entered as Reported by: MAYRA CHAVES on 03/17/17 1425 Cyanocobalamin (Cyanocobalamin Injection) 1,000 Mcg/Ml Inj, 1,000 MCG IJ MONTHLY, (Reported) Entered as Reported by: MAYRA CHAVES on 03/17/17 1425 Cyclobenzaprine HCl (Cyclobenzaprine HCl) 10 Mg Tablet, 10 MG PO Q8H PRN for SPASMS Prescribed by: KAMILA HITCHCOCK on 10/23/18 1418 Diltiazem HCl (Diltiazem 24Hr ER) 240 Mg Cap.er.24h, 240 MG PO DAILY, (Reported) Entered as Reported by: MAYRA CHAVES on 03/17/171424 Doxycycline Hyclate (Doxycycline Hyclate) 100 Mg Tablet, 100 MG PO BID Prescribed by: EFE LARA on 02/05/201955 Dronedarone HCl (Multaq) 400 Mg Tablet, 400 MG PO BID, (Reported) Entered as Reported by: MAYRA CHAVES on 03/17/17 142 Dronedarone HCl (Multaq) 400 Mg Tablet, (Reported) Entered as Reported by: PIPPA KNOTT on 06/04/18401 Fenofibric Acid (Choline) (Fenofibric Acid) 135 Mg Capsule.dr, 135 MG PO HS, (Reported) Entered as Reported by: MAYRA CHAVES on 03/17/171424 Ferrous Sulfate (Ferrous Sulfate) 325 Mg Tablet, 325 MG PO HS, (Reported) Entered as Reported by: JAE DAS on 03/17/17 0742 Glyburide (Glyburide) 5 Mg Tablet, (Reported) Entered as Reported by: PIPPA KNOTT on 06/04/18401 Hydrochlorothiazide (Hydrochlorothiazide) 25 Mg Tablet, (Reported) Entered as Reported by: PIPPA KNOTT on 06/04/18401 Lactobacillus Acidophilus (Acidophilus) 1 Each Capsule, 2 EACH PO QID Prescribed by: INOCENCIO WALL on 06/04/18 0555 Lactobacillus Acidophilus (Acidophilus Lactobacillus) 1 Gm Powder, 1 GM MC QID Prescribed by: INOCENCIO WALL on 06/04/18 0654 Levocetirizine Dihydrochloride (Levocetirizine Dihydrochloride) 5 Mg Tablet, 5 MG PO HS, (Reported) Entered as Reported by: MAYRA CHAVES on 03/17/17 141 Losartan Potassium (Losartan Potassium) 100 Mg Tablet, 100 MG PO HS, (Reported) Entered as Reported by: JAE DAS on 03/17/17 0742 Metformin HCl (Metformin HCl) 500 Mg Tablet, (Reported) Entered as Reported by: PIPPA KNOTT on 06/04/18401 Metoprolol Succinate (Metoprolol Succinate) 200 Mg Tab.er.24h, 200 MG PO DAILY, (Reported) Entered as Reported by: MAYRA CHAVES on 03/17/171424 Multivitamin (Multivitamins) 1 Each Tablet, 1 TAB PO DAILY, (Reported) Entered as Reported by: MAYRA CHAVES on 03/17/17 1425 [place]-3/Dha/Epa/Fish Oil (Fish Oil 1,400 mg Softgel) 1 Each Capsule.dr, 1,400 MG PO BID, (Reported) Entered as Reported by: MAYRA CHAVES on 03/17/17 1425 Ondansetron (Ondansetron Odt) 4 Mg Tab.rapdis, 4 MG PO Q4H Prescribed by: INOCENCIO WALL on 06/04/18 0555 Potassium Chloride (Potassium Chloride) 10 Meq Tab.er.prt, 10 MEQ PO HS, (Reported) Entered as Reported by: JAE DAS on 03/17/17 0742 Pravastatin Sodium (Pravastatin Sodium) 20 Mg Tablet, (Reported) Entered as Reported by: PIPPA KNOTT on 06/04/18 0402 Rivaroxaban (Xarelto Tablet) 20 Mg Tablet, 20 MG PO HS, (Reported) Entered as Reported by: MAYRA CHAVES on 03/17/17 1425 Tizanidine HCl (Zanaflex) 2 Mg Capsule, 2 MG PO TID PRN for SPASMS Prescribed by: LEONIDES GRAF on 01/12/19 1012 Tramadol HCl (Tramadol HCl) 50 Mg Tablet, 50 MG PO Q6H PRN for PAIN Prescribed by: KAMILA HITCHCOCK on 10/23/18 1418 Tramadol HCl (Ultram) 50 Mg Tablet, 25-50 MG PO Q6H PRN for PAIN-BREAKTHROUGH Prescribed by: LEONIDES GRAF on 01/12/19 1012 Review of Systems Review of Systems Constitutional: see HPI, malaise, weakness EENTM: no symptoms reported Respiratory: short of breath Cardiovascular: no symptoms reported Gastrointestinal: diarrhea Past Lvkoufc-Pvwbqn-Sunxpa Hx Seasonal Allergies Seasonal Allergies: No Past Medical History Surgeries: Yes (l breast mastectomy) Appendectomy, Breast, Cardiac, CABG, Section, Hysterectomy, Orthopedic Respiratory: No Cardiac: Yes Atrial Fibrillation, Chronic Edema/Swelling, Coronary Artery Disease, High Cholesterol, Hypertension Neurological: No Reproductive Disorders: No Female 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 Genitourinary: Yes (stage 3 kidney failure) Kidney Stones, Renal Failure Gastrointestinal: Yes Gastroesophageal Reflux, Hiatal Hernia Musculoskeletal: Yes Arthritis, Rheumatoid Arthritis Endocrine: Yes Diabetes, Non-Insulin dep HEENT: Yes Cataract Loss of Vision: Denies Hearing Impairment: Denies Cancer: Yes Breast Did You Recieve Any Treatments: Yes What Type of Treatment Did You: Surgical Intervention Psychosocial: No Integumentary: No Blood Disorders: No Physical Exam Vital Signs Vital Signs - First Documented 03/17/23 03/17/23 01:10 01:15 Temp 39.0 Pulse 96 Resp 20 B/P (MAP) 180/69 (106) Pulse Ox 98 O2 Delivery Room Air O2 Flow Rate 2.00 Capillary Refill : Height, Weight, BMI Height: 5'3.00" Weight: 180lbs. 0.0oz. [id number]; 34.19 BMI Method:Stated General Appearance: Chronically ill, Obese Eyes: Bilateral Eye Conjunctivae Pale HEENT: Other (very dry oral mucosa; pale lips) Respiratory: Lungs Clear, No Accessory Muscle Use, No Respiratory Distress Cardiovascular: Regular Rate, Rhythm, Systolic Murmur, Tachycardia Gastrointestinal: Soft, Abnormal Bowel Sounds (hypoactive), Tenderness (diffuse tenderness) Extremity: No Pedal Edema Neurologic/Psychiatric: No Motor/Sensory Deficits, Other (poor level of alertness) Skin: Warm/Dry, Pallor Focused Exam Sepsis Stage: Sepsis Possible Source: Pulmonary Lactate Level 03/17/23 01:10: Lactic Acid Level 2.43*H Time of Focused Exam: 02:00 Respiratory: Lungs Clear, No Accessory Muscle Use, No Respiratory Distress Cardiovascular: Regular Rate, Rhythm (HR 93) Capillary Refill: Less Than 3 Seconds Peripheral Pulses: 1+ Radial Pulses (R), 1+ Radial Pulses (L) Skin: warm/dry, pallor Lactic Acid Level Laboratory Tests Test 03/17/23 01:10 Lactic Acid Level 2.43 MMOL/L (0.50-2.00) *H Within 3hrs of presentation: Admin fluids, Admin ABX, Blood cultures prior to ABX's, Focus exam, Lactate level Progress/Results/Core Measures Suspected Sepsis SIRS Temperature: Pulse: Respiratory Rate: Laboratory Tests 03/17/23 01:10: White Blood Count 5.4 Blood Pressure / Mean: 03/17/23 01:10: Lactic Acid Level 2.43*H Laboratory Tests 03/17/23 01:10: Creatinine 0.79, INR Comment 1.2, Platelet Count 144, Total Bilirubin 4.6H Results/Orders Lab Results Laboratory Tests Test 03/17/23 01:10 03/17/23 01:40 Range/Units White Blood Count 5.4 4.3-11.0 10^3/uL Red Blood Count 3.92 3.80-5.11 10^6/uL Hemoglobin 11.9 11.5-16.0 g/dL Hematocrit 36 35-52 % Mean Corpuscular Volume 93 80-99 fL Mean Corpuscular Hemoglobin 30 25-34 pg Mean Corpuscular Hemoglobin Concent 33 32-36 g/dL Red Cell Distribution Width 19.5 H 10.0-14.5 % Platelet Count 144 130-400 10^3/uL Mean Platelet Volume 9.0-12.2 fL Immature Granulocyte % (Auto) 1 % Neutrophils (%) (Auto) 91 H 42-75 % Lymphocytes (%) (Auto) 4 L 12-44 % Monocytes (%) (Auto) 3 0-12 % Eosinophils (%) (Auto) 0 0-10 % Basophils (%) (Auto) 1 0-10 % Neutrophils # (Auto) 4.9 1.8-7.8 10^3/uL Lymphocytes # (Auto) 0.2 L 1.0-4.0 10^3/uL Monocytes # (Auto) 0.2 0.0-1.0 10^3/uL Eosinophils # (Auto) 0.0 0.0-0.3 10^3/uL Basophils # (Auto) 0.0 0.0-0.1 10^3/uL Immature Granulocyte # (Auto) 0.1 0.0-0.1 10^3/uL Neutrophils % (Manual) 87 % Lymphocytes % (Manual) 5 % Monocytes % (Manual) 2 % Band Neutrophils 6 % Percent Immature Platelet Fraction 9.0 H 0.0-7.6 % Polychromasia SLIGHT Poikilocytosis SLIGHT Anisocytosis MODERATE Elliptocytes MODERATE Prothrombin Time 15.3 H 12.2-14.7 SEC INR Comment 1.2 0.8-1.4 Activated Partial Thromboplast Time 29 24-35 SEC Sodium Level 138 135-145 MMOL/L Potassium Level 3.5 L 3.6-5.0 MMOL/L Chloride Level 107 98-107 MMOL/L Carbon Dioxide Level 20 L 21-32 MMOL/L Anion Gap 11 5-14 MMOL/L Blood Urea Nitrogen 19 H 7-18 MG/DL Creatinine 0.79 0.60-1.30 MG/DL Estimat Glomerular Filtration Rate 76 BUN/Creatinine Ratio 24 Glucose Level 222 H 70-105 MG/DL Lactic Acid Level 2.43 *H 0.50-2.00 MMOL/L Calcium Level 9.1 8.5-10.1 MG/DL Corrected Calcium 9.2 8.5-10.1 MG/DL Total Bilirubin 4.6 H 0.1-1.0 MG/DL Aspartate Amino Transf (AST/SGOT) 601 H 5-34 U/L Alanine Aminotransferase (ALT/SGPT) 283 H 0-55 U/L Alkaline Phosphatase 194 H 40-136 U/L Total Protein 6.6 6.4-8.2 GM/DL Albumin 3.9 3.2-4.5 GM/DL Influenza Type A (RT-PCR) Not Detected Not Detecte Influenza Type B (RT-PCR) Not Detected Not Detecte SARS-CoV-2 RNA (RT-PCR) Not Detected Not Detecte Urine Color YELLOW Urine Clarity SL CLOUDY Urine pH 6.0 5-9 Urine Specific [place] 1.015 L 1.016-1.022 Urine Protein 1+ H NEGATIVE Urine Glucose (UA) 2+ H NEGATIVE Urine Ketones NEGATIVE NEGATIVE Urine Nitrite NEGATIVE NEGATIVE Urine Bilirubin 1+ H NEGATIVE Urine Urobilinogen 2.0 < = 1.0 MG/DL Urine Leukocyte Esterase NEGATIVE NEGATIVE Urine RBC (Auto) TRACE H NEGATIVE Urine RBC RARE /HPF Urine WBC NONE /HPF Urine Crystals NONE /LPF Urine Bacteria NEGATIVE /HPF Urine Casts PRESENT /LPF Urine Hyaline Casts 0-2 H /LPF Urine Mucus NEGATIVE /LPF Urine Culture Indicated NO My Orders Orders - YOLANDE GRIDER MD Cbc And Automated Diff (03/17/23 01:14) Comprehensive Metabolic Panel (03/17/23 01:14) Blood Culture (03/17/23 01:14) Sputum Culture (03/17/23 01:14) Urinalysis (03/17/23 01:14) Urine Culture (03/17/23 01:14) Protime With Inr (03/17/23:14) Partial Thromboplastin Time (03/17/23 01:14) Chest 1 View, Ap/Pa Only (03/17/23 01:14) Ed Iv/Invasive Line Start (03/17/23 01:14) Ed Iv/Invasive Line Start (03/17/23 01:14) Vital Signs Adult Sepsis Patie Q15M (03/17/23 01:14) O2 (03/17/23 01:14) Remove Rings In Anticipation O (03/17/23 01:14) Lactic Acid Analyzer (03/17/23 01:14) Covid 19 Inhouse Test (03/17/23 01:14) C Difficile Ag + Toxin A/B. (03/17/23 01:14) Catheter(Urinary) Insert & Ass 03,15 (03/17/23 01:14) Ekg Tracing (03/17/23 01:14) Type And Screen (03/17/23 01:14) Influenza A And B By Pcr (03/17/23 01:14) Ns Iv 1000 Ml (Ns Iv 1000 Ml) (03/17/23 01:14) Acetaminophen Tablet (Acetaminophen Ta (03/17/23 01:15) Manual Differential (03/17/23 01:10) Ceftriaxone Iv/Im (Ceftriaxone Iv/Im) (03/17/23 02:30) Azithromycin Injection (Azithromycin Inj (03/17/23 02:30) Ct Chest/Abdomen/Pelvis W (03/17/23 02:40) Medications Given in ED Current Medications Medications Dose Ordered Sig/Torie Route Start Time Stop Time Status Last Admin Dose Admin Acetaminophen 650 mg ONCE ONCE PO 03/17/23 01:15 03/17/23 01:17 DC 03/17/23 01:30 650 MG Ceftriaxone Sodium 1000 mg/ Sodium Chloride 50 ml @ 100 mls/hr ONCE ONCE IV 03/17/23 02:30 03/17/23 02:59 03/17/23 02:35 100 MLS/HR Vital Signs/I&O 03/17/23 03/17/23 03/17/23 03/17/23 01:10 01:15 01:30 02:26 Temp 39.0 39.0 38.9 Pulse 96 Resp 20 B/P (MAP) 180/69 (106) Pulse Ox 98 O2 Delivery Room Air Nasal Cannula O2 Flow Rate 2.00 Capillary Refill : Progress Note : Time: 02:39 Progress Note Patient seen and evaluated by me. Evaluation today includes history, physical exam, "sepsis protocol" to include CBC, Chem-12, coag profile, UA, urine cultures, blood cultures, lactic acid, COVID and influenza, single view chest x- ray, EKG. Pertinent physical exam findings well-developed well-nourished obese female who appears chronically ill, somnolent with overall poor responsiveness. She has very mild scleral icterus. Very dry, pale oral mucosa. Pale conj unctive a. Heart is regular rate in the 90s, lungs are clear, diminished throughout. She has a soft abdomen with hypoactive bowel sounds diffusely tender. No lower extremity edema or calf tenderness. She will follow commands. No focal neurologic deficits. Differential diagnosis includes sepsis due to pneumonia, urinary tract infection, colitis. Labs independently reviewed and interpreted by me. Her CBC shows a total white blood cell count of 5.4 with 91% segmented neutrophils. Hemoglobin slightly low at 11.9, hematocrit of 36, platelet count 144. Her Chem-12 shows a potassium a little low at 3.5 CO2 slightly depressed at 20. Normal renal function with a BUN of 19 creatinine of 0.79. Glucose slightly elevated at 222. Her liver functions are grossly elevated with an AST of 601, ALT of 83, alk phos of 194 and total bilirubin of 4.6. Lactic acid elevated at 2.43. Coag profile reveals elevated PT at 15.3, INR 1.2, PTT of 29. Urinalysis is not infected and shows bilirubin 1+. Her COVID and flu tests are negative. Chest x-ray reveals cardiomegaly with positive fluid balance and what appears to be right lower lobe infiltrate. Patient received 1 L of normal saline per EMS. After arrival to the emergency department she received an additional liter of normal saline with 650 mg of Tylenol for a fever of 102. After fluids and Tylenol her mental status is improved. She was able to relate that she was recently in the hospital at [place] about 2 weeks ago. I ordered initially Rocephin 1 g and azithromycin [address] Masterson the patient's private physician who would like the patient admitted to the cardiac stepdown unit. She prefers her to be started on cefepime as she was recently in the hospital, concern for hospital-acquired pneumonia. She also indicates that she would like the patient to have CT chest abdomen and pelvis with IV contrast as the etiology for her transaminitis is still unclear. Findings and plan of care communicated with the patient and her son who is at the bedside. Shared decision making. Patient is much improved at this time, more alert, answering questions appropriately and remembering recent history (GB removed in August of this year at [facility] - she stated no stones - just "sludge"). They are agreeable to admission. All questions are sought and answered. ECG Initial ECG Impression Date: Mar 17, 2023 Initial ECG Impression Time: 01:23 Initial ECG Rate: 97 Initial ECG Rhythm: Normal Sinus Initial ECG Intervals VA 174 QRS 106 QTc [address] segment change; LVH; poor R wave progression over the precordium; q waves inferiorly Diagnostic Imaging Diagonstic Imaging: Xray Plain Films/CT/US/NM/MRI: chest Comments single view chest independently reviewed and interpreted by me - Right lower lobe infiltrate Departure Communication (Admissions) Time/Spoke to Admitting Phy: 02:[address] Masterson, hospitalist/patient's private physician admit inpatient cardiac stepdown Impression Primary Impression: Sepsis due to pneumonia Additional Impressions: Transaminitis Hyperbilirubinemia Disposition: ADMITTED INPATIENT Condition: Stable Admissions Decision to Admit Reason: Admit from ER (General) Decision to Admit/Date: Mar 17, 2023 Time/Decision to Admit Time: 02:19 Departure-Patient Inst. Referrals: SAMEER MASTERSON DO (PCP/Family) Primary Care Physician YOLANDE GRIDER MD Mar 17, 2023 01:21
[2023-03-17 01:27] LABS: HEMOGLOBIN 11.9 g/dL (11.5-16.0); MEAN CORPUSCULAR VOLUME 93 fL (80-99)
[2023-03-17 01:29] LABS: BASOPHILS % (AUTO) 1 % (0-10); EOSINOPHILS % (AUTO) 0 % (0-10); HEMATOCRIT 36 % (35-52); LYMPHOCYTES # (AUTO) 0.2 10^3/uL (1.0-4.0); LYMPHOCYTES % (AUTO) 4 % (12-44); MEAN CORPUSCULAR HEMOGLOBIN 30 pg (25-34); MEAN CORPUSCULAR HGB CONC 33 g/dL (32-36); MONOCYTES # (AUTO) 0.2 10^3/uL (0.0-1.0); MONOCYTES % (AUTO) 3 % (0-12); NEUTROPHILS # (AUTO) 4.9 10^3/uL (1.8-7.8); NEUTROPHILS % (AUTO) 91 % (42-75); PLATELET COUNT 144 10^3/uL (130-400); WHITE BLOOD COUNT 5.4 10^3/uL (4.3-11.0)
[2023-03-17 01:36] LABS: INR 1.2 (0.8-1.4); PROTHROMBIN TIME PATIENT 15.3 SEC (12.2-14.7)
[2023-03-17 01:37] LABS: ALBUMIN 3.9 GM/DL (3.2-4.5); POTASSIUM 3.5 MMOL/L (3.6-5.0)
[2023-03-17 01:38] LABS: CALCIUM 9.1 MG/DL (8.5-10.1)
[2023-03-17 01:40] LABS: TOTAL PROTEIN 6.6 GM/DL (6.4-8.2)
[2023-03-17 01:41] LABS: BILIRUBIN,TOTAL 4.6 MG/DL (0.1-1.0)
[2023-03-17 01:43] LABS: CREATININE SERUM 0.79 MG/DL (0.60-1.30)
[2023-03-17 02:08] LABS: BAND NEUTROPHILS 6 %; LYMPHOCYTES % (MANUAL) 5 %; MONOCYTES % (MANUAL) 2 %; NEUTROPHILS % (MANUAL) 87 %
[2023-03-17 02:09] LABS: ANISOCYTOSIS MODERATE; ELLIPT/OVALOCYTES MODERATE; POIKILOCYTOSIS SLIGHT; POLYCHROMASIA SLIGHT
[2023-03-17 02:09] LABS: CLARITY,URINE SL CLOUDY; COLOR,URINE YELLOW; GLUCOSE, URINE (UA) 2+ (NEGATIVE); KETONES,URINE NEGATIVE (NEGATIVE); PROTEIN,URINE 1+ (NEGATIVE)
[2023-03-17 02:10] LABS: BACTERIA,URINE NEGATIVE /HPF; BILIRUBIN,URINE 1+ (NEGATIVE); HYALINE CASTS, URINE 0-2 /LPF; LEUKOCYTE ESTERASE ,URINE NEGATIVE (NEGATIVE); NITRITE,URINE NEGATIVE (NEGATIVE); RBC,URINE RARE /HPF
[2023-03-17] MEDS ORDERED: AZITHROMYCIN INJECTION 500 MG in NS (IVPB) 250 ML 250 ML IV ONE (02:30)
[2023-03-17] MEDS ORDERED: cefTRIAXone IV/IM 1,000 MG in NS (IVPB) 50 ML 50 ML IV ONE (02:30)
[2023-03-17] MEDS ORDERED: HOLD METFORMIN - RECEIVED CONTRAST 20 ML VIAL IV SCH (03:30)
[2023-03-17] MEDS ORDERED: NS 100 ML (IVPB) BAG IV ONE (03:30)
[2023-03-17] MEDS ORDERED: IOHEXOL 350 MG/ML 100 ML (OMNIPAQUE 350) VIAL IV ONE (03:30)
[2023-03-17] MEDS ORDERED: ACETAMINOPHEN 325 MG TABLET PO PRN ×2 (04:00→04:45)
[2023-03-17] MEDS ORDERED: CEFEPIME 1,000 MG/NS 50 ML IVPB IV SCH ×2 (04:00)
[2023-03-17] MEDS ORDERED: ACETAMINOPHEN 650 MG SUPPOSITORY PR PRN (04:00)
[2023-03-17] MEDS ORDERED: ONDANSETRON INJECTION 4 MG/2 ML (SDV) IV PRN (04:00)
[2023-03-17] MEDS ORDERED: RT-ALBUTEROL SULF 2.5 MG/3 ML PRE-MIX VIAL INH PRN (04:30)
[2023-03-17] MEDS ORDERED: ONDANSETRON 4 MG ORAL DISSOLVE TABLET PO PRN (04:45)
[2023-03-17] MEDS ORDERED: MILK OF MAGNESIA 400 MG/5 ML 30 ML UDC PO PRN (04:45)
[2023-03-17] MEDS ORDERED: MELATONIN 3 MG TABLET PO PRN (04:45)
[2023-03-17] MEDS ORDERED: diphenhydrAMINE INJ 50 MG/ML VIAL IVP PRN (04:45)
[2023-03-17] MEDS ORDERED: BISACODYL 10 MG SUPPOSITORY PR PRN (04:45)
[2023-03-17] MEDS ORDERED: diphenhydrAMINE 25 MG TABLET PO PRN (04:45)
[2023-03-17] MEDS ORDERED: ANTACID SUSPENSION 30 ML UDC PO PRN (04:45)
[2023-03-17] MEDS ORDERED: LACTULOSE SYRUP 10GM/15ML 30ML UDC PO PRN (04:45)
[2023-03-17] MEDS ORDERED: CALCIUM CARBONATE 500 MG CHEW TABLET PO PRN (04:45)
[2023-03-17] MEDS ORDERED: HYDROmorphone INJECTION 2 MG/ML VIAL IV PRN (04:45)
[2023-03-17] MEDS: NS IV 1000 ML 1,000 ML IV SCH ×2 (05:24→09:16)
--- NOTE | 2023-03-17 06:12 | Diagnostic Imaging Report ---
EXAMINATION: Chest 1 view HISTORY: fever weak, hypoxia COMPARISON: 03/17/2017. FINDINGS: Stable mild enlargement of the cardiac silhouette. Surgical changes from median sternotomy and CABG. Patchy interstitial opacities within the mid and lower lungs. No pleural effusion or pneumothorax. The osseous structures are intact. IMPRESSION: 1. Patchy interstitial opacities within the lower lungs which could be seen with atelectasis, edema, or pneumonia. Dictated by: Dictated on workstation # [id number]
[2023-03-17] MEDS: inSUlin ASPART 1 UNIT/0.01 ML (PER UNIT) SC SCH ×4 (06:27→21:03)
--- NOTE | 2023-03-17 07:54 | Diagnostic Imaging Report ---
EXAMINATION: CT chest, abdomen and pelvis with intravenous contrast. TECHNIQUE: Multiple contiguous axial images were obtained through the chest, abdomen and pelvis after the uneventful administration of intravenous contrast. All CT scans use one or more of the following dose optimizing techniques: automated exposure control, MA and/or KvP adjustment based on patient size and exam type or iterative reconstruction. HISTORY: hypoxia, fever; abdominal pain COMPARISON: 05/11/2014 FINDINGS: Thyroid: The visualized thyroid gland is normal. Mediastinum: Heart size is normal without significant pericardial effusion. Calcifications of the aorta and coronary vessels. Thoracic aorta is normal in caliber. No suspicious lymphadenopathy. Lungs and airways: There is trace right pleural effusion with dependent atelectasis in the lung bases. There are a few patchy nodular densities within the lung bases with groundglass attenuation. No pneumothorax. The airways are normal. Solid organs: The liver is normal without focal lesion. The gallbladder is surgically absent. Mild biliary ductal dilatation, intrahepatic and extrahepatic. Questionable filling defect or stone within the distal common bile duct. Pancreas is normal. Spleen is normal. Adrenal glands are normal. The kidneys are normal without hydronephrosis. Bowel: A small hiatal hernia is present. There is no bowel obstruction. There is scattered colonic diverticulosis. There are no secondary signs of acute appendicitis. Peritoneum: There is no intraperitoneal free fluid or free air. No suspicious lymphadenopathy. Vasculature: Calcification of the aorta without aneurysm. Musculoskeletal: Degenerative changes of the spine without suspicious osseous lesion or compression fracture. Multilevel compression deformities throughout the lower thoracic and lumbar spine, new from 05/11/2014. Pelvis: The uterus is surgically absent. No adnexal mass. Urinary bladder is decompressed with a Taylor catheter. IMPRESSION: 1. Patchy nodular densities and groundglass attenuation within the lung bases which could be secondary to atelectasis, pulmonary edema, or atypical pneumonia. There is trace right pleural effusion. 2. Mild biliary ductal dilatation with possible stones or filling defect within the distal common bile duct. This can be further evaluated with MRCP. 3. Multilevel age indeterminate compression deformities of the lower thoracolumbar spine. 4. Agree with preliminary interpretation. Dictated by: Dictated on workstation # [id number]
[2023-03-17] MEDS ORDERED: APIXABAN 2.5 MG TABLET PO SCH (09:00)
[2023-03-17] MEDS: SENNOSIDES 8.6 MG TABLET PO SCH ×2 (09:16→19:52)
[2023-03-17] MEDS: DOCUSATE SODIUM 100 MG CAPSULE PO SCH ×2 (09:16→19:51)
[2023-03-17 11:23] LABS: BASOPHILS # (AUTO) 0.1 10^3/uL (0.0-0.1); BASOPHILS % (AUTO) 0 % (0-10); EOSINOPHILS % (AUTO) 0 % (0-10); MEAN CORPUSCULAR HGB CONC 33 g/dL (32-36)
[2023-03-17 11:25] LABS: HEMATOCRIT 30 % (35-52); HEMOGLOBIN 9.9 g/dL (11.5-16.0); LYMPHOCYTES % (AUTO) 6 % (12-44); MEAN CORPUSCULAR HEMOGLOBIN 30 pg (25-34); MEAN CORPUSCULAR VOLUME 92 fL (80-99); MEAN PLATELET VOLUME 12.1 fL (9.0-12.2); MONOCYTES # (AUTO) 2.4 10^3/uL (0.0-1.0); MONOCYTES % (AUTO) 14 % (0-12); NEUTROPHILS # (AUTO) 13.2 10^3/uL (1.8-7.8); NEUTROPHILS % (AUTO) 77 % (42-75); PLATELET COUNT 130 10^3/uL (130-400)
[2023-03-17 11:35] LABS: INR 1.4 (0.8-1.4); PROTHROMBIN TIME PATIENT 17.7 SEC (12.2-14.7)
[2023-03-17 11:41] LABS: ALBUMIN 3.2 GM/DL (3.2-4.5); BILIRUBIN,TOTAL 5.4 MG/DL (0.1-1.0); CALCIUM 8.3 MG/DL (8.5-10.1); CREATININE SERUM 0.75 MG/DL (0.60-1.30); POTASSIUM 3.2 MMOL/L (3.6-5.0); TOTAL PROTEIN 5.2 GM/DL (6.4-8.2)
[2023-03-17 11:52] LABS: BAND NEUTROPHILS 3 %; LYMPHOCYTES % (MANUAL) 7 %; NEUTROPHILS % (MANUAL) 75 %
[2023-03-17 11:53] LABS: ANISOCYTOSIS MARKED; BASOPHILS % (MANUAL) 0 %; ELLIPT/OVALOCYTES SLIGHT; EOSINOPHILS % (MANUAL) 1 %; MONOCYTES % (MANUAL) 14 %; POLYCHROMASIA SLIGHT
--- NOTE | 2023-03-17 12:42 | History & Physical ---
SAMUEL ROSE 03/17/23 1242: History of Present Illness History of Present Illness Reason for visit/HPI CC: Diarrhea, weakness, fever HPI: Ms. Matute is a 77 y/o female presenting with a 4 week history of vomiting, diarrhea, and weakness. She was seen at [facility] 2 weeks ago for similar symptoms. Her symptoms had resolved in the hospital until yesterday evening. She had 3 episodes of diarrhea and an episode of vomiting, then her son had called EMS to bring her to [facility] [place] [facility]. She also reports running a fever of 101F and has some chills. She reports having florescent yellow stools a few weeks ago, but now they are dark. She does have episodes of intense itching. CT abdomen showed biliary duct dilation and distal common bile duct filling defect. She has a history of cholecystectomy, appendectomy. UA was unremarkable. Date of Admission Mar 17, 2023 at 03:28 Date Seen by a Provider: Mar 17, 2023 Time Seen by a Provider: 09:15 I consulted on this patient on 03/17/23 12:32 Attending Physician Meaghan Masterson DO Admitting Physician Admitting Physician: Meaghan Masterson DO Attending Physician: Meaghan Masterson DO Consult Allergies and Home Medications Allergies Coded Allergies: amiodarone (Verified Allergy, Intermediate, 07/29/07) butorphanol (Verified Allergy, Intermediate, 07/29/07) codeine (Verified Allergy, Intermediate, 07/29/07) epinephrine (Verified Allergy, Intermediate, 07/29/07) hydrocodone (Verified Allergy, Intermediate, 07/29/07) morphine (Verified Allergy, Intermediate, 07/29/07) Patient Home Medication List Abaloparatide (Tymlos) 80 Mcg/Dose (3120 Mcg/1.56 Ml) Pen.injctr, 80 MG IJ HS, (Reported) Entered as Reported by: STEFANY RIVAS on 03/17/231323 Last Action: Held Apixaban (Eliquis) 2.5 Mg Tablet, 2.5 MG PO BID, (Reported) Entered as Reported by: STEFANY RIVAS on 03/17/231323 Last Action: Held Calcium Carbonate (Calcium) 600 Mg Calcium (1500 Mg) Tablet, 600 MG PO HS, (Reported) Entered as Reported by: STEFANY RIVAS on 03/17/231323 Last Action: Held Diltiazem HCl (Diltiazem 24Hr ER) 240 Mg Cap.er.24h, 240 MG PO DAILY, (Reported) Entered as Reported by: MAYRA CHAVES on 03/17/171424 Last Action: Continued Dronedarone HCl (Multaq) 400 Mg Tablet, 400 MG PO BID, (Reported) Entered as Reported by: PARVEZ BETANCUR on 03/17/232132 Last Action: Edited Fenofibric Acid (Choline) (Fenofibric Acid) 135 Mg Capsule.dr, 135 MG PO HS, (Reported) Entered as Reported by: MAYRA CHAVES on 03/17/171424 Last Action: Held Gabapentin (Neurontin) 300 Mg Capsule, 300 MG PO TID, (Reported) Entered as Reported by: STEFANY RIVAS on 03/17/231323 Last Action: Continued Glyburide (Glyburide) 5 Mg Tablet, 5 MG PO DAILY, (Reported) Entered as Reported by: PIPPA KNOTT on 06/04/18401 Last Action: Held Hydrochlorothiazide (Hydrochlorothiazide) 25 Mg Tablet, 25 MG PO DAILY, (Reported) Entered as Reported by: PIPPA KNOTT on 06/04/18401 Last Action: Held Levocetirizine Dihydrochloride (Levocetirizine Dihydrochloride) 5 Mg Tablet, 5 MG PO HS, (Reported) Entered as Reported by: MAYRA CHAVES on 03/17/17 141 Last Action: Converted Lidocaine (Lidocaine 5% Patch) 5 % Adh..patch, 1 PATCH TD DAILY PRN for PAIN- BREAKTHROUGH, (Reported) Entered as Reported by: STEFANY RIVAS on 03/17/231323 Last Action: Continued Losartan Potassium (Losartan Potassium) 100 Mg Tablet, 100 MG PO HS, (Reported) Entered as Reported by: JAE DAS on 03/17/17 0742 Last Action: Continued Magnesium Oxide (Magnesium) 400 Mg Magnesium Tablet, 400 MG PO HS, (Reported) Entered as Reported by: STEFANY RIVAS on 03/17/231323 Last Action: Converted Metoprolol Succinate (Metoprolol Succinate) 200 Mg Tab.er.24h, 200 MG PO DAILY, (Reported) Entered as Reported by: MAYRA CHAVES on 03/17/171424 Last Action: Converted [place]-3/Dha/Epa/Fish Oil (Fish Oil 1,200 mg Softgel) 1,200 Mg (144 Mg-216 Mg) Capsule, 1,200 MG PO TID, (Reported) Entered as Reported by: STEFANY RIVAS on 03/17/231323 Last Action: Held Pantoprazole Sodium (Pantoprazole Sodium) 40 Mg Tablet.dr, 40 MG PO DAILY, (Reported) Entered as Reported by: STEFANY RIVAS on 03/17/231323 Last Action: Continued Potassium Chloride (Klor-Con 10) 10 Meq Tablet.er, 20 MEQ PO BID, (Reported) Entered as Reported by: STEFANY RIVAS on 03/17/231323 Last Action: Held Pravastatin Sodium (Pravastatin Sodium) 20 Mg Tablet, 20 MG PO HS, (Reported) Entered as Reported by: PIPPA KNOTT on 06/04/18401 Last Action: Held Prednisone (Prednisone) 1 Mg Tab, 3 MG PO DAILY, (Reported) Entered as Reported by: STEFANY RIVAS on 03/17/231323 Last Action: Continued Tramadol HCl (Tramadol HCl) 50 Mg Tablet, 50 MG PO TID PRN for PAIN-MODERATE (5- 7), (Reported) Entered as Reported by: STEFANY RIVAS on 03/17/231323 Last Action: Continued Discontinued Medications Aspirin (Aspirin) 81 Mg Tab.chew, 81 MG PO HS, (Reported) Discontinued Reason: No Longer Taking Entered as Reported by: MAYRA CHAVES on 03/17/171424 Last Action: Discontinued Cyanocobalamin (Cyanocobalamin Injection) 1,000 Mcg/Ml Inj, 1,000 MCG IJ MONTHLY, (Reported) Discontinued Reason: No Longer Taking Entered as Reported by: MAYRA CHAVES on 03/17/171424 Last Action: Discontinued Cyclobenzaprine HCl (Cyclobenzaprine HCl) 10 Mg Tablet, 10 MG PO Q8H PRN for SPASMS Discontinued Reason: No Longer Taking Prescribed by: KAMILA HITCHCOCK on 10/23/18 141 Last Action: Discontinued Doxycycline Hyclate (Doxycycline Hyclate) 100 Mg Tablet, 100 MG PO BID Discontinued Reason: No Longer Taking Prescribed by: EFE LARA on 02/05/201955 Last Action: Discontinued Dronedarone HCl (Multaq) 400 Mg Tablet, 400 MG PO BID, (Reported) Discontinued Reason: No Longer Taking Entered as Reported by: MAYRA CHAVES on 03/17/171424 Last Action: Discontinued Dronedarone HCl (Multaq) 400 Mg Tablet, (Reported) Discontinued Reason: No Longer Taking Entered as Reported by: PIPPA KNOTT on 06/04/18401 Last Action: Discontinued Ferrous Sulfate (Ferrous Sulfate) 325 Mg Tablet, 325 MG PO HS, (Reported) Discontinued Reason: No Longer Taking Entered as Reported by: JAE DAS on 03/17/17741 Last Action: Discontinued Gabapentin (Neurontin) 300 Mg Capsule, 600 MG PO DAILY, (Reported) Discontinued Reason: No Longer Taking Entered as Reported by: STEFANY RIVAS on 03/17/23 1324 Last Action: Discontinued Lactobacillus Acidophilus (Acidophilus) 1 Each Capsule, 2 EACH PO QID Discontinued Reason: No Longer Taking Prescribed by: INOCENCIO WALL on 06/04/18554 Last Action: Discontinued Lactobacillus Acidophilus (Acidophilus Lactobacillus) 1 Gm Powder, 1 GM MC QID Discontinued Reason: No Longer Taking Prescribed by: INOCENCIO WALL on 06/04/18653 Last Action: Discontinued Metformin HCl (Metformin HCl) 500 Mg Tablet, (Reported) Discontinued Reason: No Longer Taking Entered as Reported by: PIPPA KNOTT on 06/04/18401 Last Action: Discontinued Multivitamin (Multivitamins) 1 Each Tablet, 1 TAB PO DAILY, (Reported) Discontinued Reason: No Longer Taking Entered as Reported by: MAYRA CHAVES on 03/17/171424 Last Action: Discontinued [place]-3/Dha/Epa/Fish Oil (Fish Oil 1,400 mg Softgel) 1 Each Capsule.dr, 1,400 MG PO BID, (Reported) Discontinued Reason: No Longer Taking Entered as Reported by: MAYRA CHAVES on 03/17/171424 Last Action: Discontinued Ondansetron (Ondansetron Odt) 4 Mg Tab.rapdis, 4 MG PO Q4H Discontinued Reason: No Longer Taking Prescribed by: INOCENCIO WALL on 06/04/18554 Last Action: Discontinued Potassium Chloride (Potassium Chloride) 10 Meq Tab.er.prt, 10 MEQ PO HS, (Reported) Discontinued Reason: No Longer Taking Entered as Reported by: JAE DAS on 11/15/17 0742 Last Action: Discontinued Rivaroxaban (Xarelto Tablet) 20 Mg Tablet, 20 MG PO HS, (Reported) Discontinued Reason: No Longer Taking Entered as Reported by: MAYRA CHAVES on 03/17/17 1425 Last Action: Discontinued Tizanidine HCl (Zanaflex) 2 Mg Capsule, 2 MG PO TID PRN for SPASMS Discontinued Reason: No Longer Taking Prescribed by: LEONIDES GRAF on 01/12/19 1012 Last Action: Discontinued Tramadol HCl (Tramadol HCl) 50 Mg Tablet, 50 MG PO Q6H PRN for PAIN Discontinued Reason: No Longer Taking Prescribed by: KAMILA HITCHCOCK on 10/23/18 1418 Last Action: Discontinued Tramadol HCl (Ultram) 50 Mg Tablet, 25-50 MG PO Q6H PRN for PAIN-BREAKTHROUGH Discontinued Reason: No Longer Taking Prescribed by: LEONIDES GRAF on 01/12/19 1012 Last Action: Discontinued Past Fnlxrax-Cvqbgf-Qsoqfe Hx Patient Social History Tobacco Use?: No Smoking Status: Never a Smoker Smokeless Tobacco Frequency: Never a User Use of E-Cig and/or Vaping dev: No Substance use?: No Alcohol Use?: No Pt feels they are or have been: No Immunizations Up To Date Date of Influenza Vaccine: Jan 13, 2017 Tetanus Booster (TDap): Unknown Hepatitis A: Yes Hepatitis B: Yes Date of Pneumonia Vaccine: Nov 12, 2008 Seasonal Allergies Seasonal Allergies: No Current Status status: No status: No Advance Directives: Yes Advance Directive Location: Home Communicates: Verbally Primary Language: Urdu Preferred Spoken Language: Urdu Is interpretation needed?: No Implanted or Applied Medical D: CPAP Past Medical History Surgeries: Appendectomy, Breast, Cardiac, CABG, Section, Gallbladder, Hysterectomy, Orthopedic Atrial Fibrillation, Chronic Edema/Swelling, Coronary Artery Disease, High Cholesterol, Hypertension [employer]ATOR History: Menopausal Kidney Stones, Renal Failure Gastroesophageal Reflux, Hiatal Hernia Arthritis, Rheumatoid Arthritis Diabetes, Non-Insulin dep Cataract Loss of Vision: Denies Hearing Impairment: Denies Breast Did You Recieve Any Treatments: Yes What Type of Treatment Did You: Surgical Intervention Blood Disorders: No Review of Systems Constitutional: chills, diaphoresis, fever, weakness EENTM: No hearing loss, No blurred vision Respiratory: No cough, No dyspnea on exertion, No hemoptysis Cardiovascular: No chest pain; Hx of Intervention; No palpitations Gastrointestinal: abdominal pain (diffusely tender), diarrhea; No hematemesis; nausea, vomiting Musculoskeletal: joint pain Skin: dryness Psychiatric/Neurological: Denies Headache; Weakness Physical Exam Vital Signs Vital Signs - First Documented 03/17/23 03/17/23 01:10 01:15 Temp 39.0 Pulse 96 Resp 20 B/P (MAP) 180/69 (106) Pulse Ox 98 O2 Delivery Room Air O2 Flow Rate 2.00 Capillary Refill : Less Than 3 Seconds Height, Weight, BMI Height: 5'3.00" Weight: 180lbs. 0.0oz. 81.812452qo; 33.41 BMI Method:Stated General Appearance: No Apparent Distress, WD/WN HEENT: PERRL/EOMI; No Moist Mucous Membranes; Pale Conjunctivae (L), Pale Conjunctivae (R) Neck: Full Range of Motion, Non Tender, Supple Respiratory: Chest Non Tender, Lungs Clear, Normal Breath Sounds, No Accessory Muscle Use Cardiovascular: Regular Rate, Rhythm, Normal Peripheral Pulses, Systolic Murmur Gastrointestinal: Soft, Abnormal Bowel Sounds, Tenderness Extremity: Normal Capillary Refill, Normal Range of Motion, Non Tender Neurologic/Psychiatric: Alert, Oriented x3, Normal Mood/Affect Skin: Normal Color Assessment/Plan Assessment and Plan Assessment: Ms. Matute is a 77 y/o female with 4 week history of diarrhea, weakness, fever Plan: Sepsis/Pneumonia -Chest XR showed lower interstitial infiltrates -lactic acid 5.04 -IV cefepime -monitor vitals Nausea/Vomiting Diarrhea -Abd CT showed bile duct dilation and distal common bile duct filling defect -consulted Gen Surg for MRCP -NPO -IV fluids Elevated Liver Function Tests -AST 601, ALT 283, Alk phos 194, PT 15.3, bili 4.6 -likely 2/2 bile duct dilation/filling defect -monitor liver function MEAGHAN MASTERSON DO 03/18/23 0440: History of Present Illness History of Present Illness Reason for visit/HPI CC: Diarrhea with weakness HPI: This is a 77yoWF clinic patient of mine who presented to the ER with similar complaints as she had prior to admit to [facility] 3 weeks ago. She had jaundice at that time and was found to have severely high LFT's thought to be from meds so meds were stopped and patient was given IVF and conservative care and her liver returned to normal and USG was negative. When she was in ER I requested a CT scan which revealed possible stones in ductal system and MRCP ordered along with Dr Lobato consult. Allergies and Home Medications Allergies Coded Allergies: amiodarone (Verified Allergy, Intermediate, 07/29/07) butorphanol (Verified Allergy, Intermediate, 07/29/07) codeine (Verified Allergy, Intermediate, 07/29/07) epinephrine (Verified Allergy, Intermediate, 07/29/07) hydrocodone (Verified Allergy, Intermediate, 07/29/07) morphine (Verified Allergy, Intermediate, 07/29/07) Patient Home Medication List Home Medication List Reviewed: Yes Abaloparatide (Tymlos) 80 Mcg/Dose (3120 Mcg/1.56 Ml) Pen.injctr, 80 MG IJ HS, (Reported) Entered as Reported by: STEFANY RIVAS on 03/17/231323 Last Action: Held Apixaban (Eliquis) 2.5 Mg Tablet, 2.5 MG PO BID, (Reported) Entered as Reported by: STEFANY RIVAS on 03/17/231323 Last Action: Held Calcium Carbonate (Calcium) 600 Mg Calcium (1500 Mg) Tablet, 600 MG PO HS, (Reported) Entered as Reported by: STEFANY RIVAS on 03/17/231323 Last Action: Held Diltiazem HCl (Diltiazem 24Hr ER) 240 Mg Cap.er.24h, 240 MG PO DAILY, (Reported) Entered as Reported by: MAYRA CHAVES on 03/17/171424 Last Action: Continued Dronedarone HCl (Multaq) 400 Mg Tablet, 400 MG PO BID, (Reported) Entered as Reported by: PARVEZ BETANCUR on 03/17/232132 Last Action: Edited Fenofibric Acid (Choline) (Fenofibric Acid) 135 Mg Capsule.dr, 135 MG PO HS, (Reported) Entered as Reported by: MAYRA CHAVES on 03/17/171424 Last Action: Held Gabapentin (Neurontin) 300 Mg Capsule, 300 MG PO TID, (Reported) Entered as Reported by: STEFANY RIVAS on 03/17/231323 Last Action: Continued Glyburide (Glyburide) 5 Mg Tablet, 5 MG PO DAILY, (Reported) Entered as Reported by: PIPPA KNOTT on 06/04/18401 Last Action: Held Hydrochlorothiazide (Hydrochlorothiazide) 25 Mg Tablet, 25 MG PO DAILY, (Reported) Entered as Reported by: PIPPA KNOTT on 06/04/18401 Last Action: Held Levocetirizine Dihydrochloride (Levocetirizine Dihydrochloride) 5 Mg Tablet, 5 MG PO HS, (Reported) Entered as Reported by: MAYRA CHAVES on 03/17/17 1411 Last Action: Converted Lidocaine (Lidocaine 5% Patch) 5 % Adh..patch, 1 PATCH TD DAILY PRN for PAIN- BREAKTHROUGH, (Reported) Entered as Reported by: STEFANY RIVAS on 03/17/231323 Last Action: Continued Losartan Potassium (Losartan Potassium) 100 Mg Tablet, 100 MG PO HS, (Reported) Entered as Reported by: JAE DAS on 03/17/17 0742 Last Action: Continued Magnesium Oxide (Magnesium) 400 Mg Magnesium Tablet, 400 MG PO HS, (Reported) Entered as Reported by: STEFANY RIVAS on 03/17/231323 Last Action: Converted Metoprolol Succinate (Metoprolol Succinate) 200 Mg Tab.er.24h, 200 MG PO DAILY, (Reported) Entered as Reported by: MAYRA CHAVES on 03/17/17 1425 Last Action: Converted [place]-3/Dha/Epa/Fish Oil (Fish Oil 1,200 mg Softgel) 1,200 Mg (144 Mg-216 Mg) Capsule, 1,200 MG PO TID, (Reported) Entered as Reported by: STEFANY RIVAS on 03/17/231323 Last Action: Held Pantoprazole Sodium (Pantoprazole Sodium) 40 Mg Tablet.dr, 40 MG PO DAILY, (Reported) Entered as Reported by: STEFANY RIVAS on 03/17/231323 Last Action: Continued Potassium Chloride (Klor-Con 10) 10 Meq Tablet.er, 20 MEQ PO BID, (Reported) Entered as Reported by: STEFANY RIVAS on 03/17/231323 Last Action: Held Pravastatin Sodium (Pravastatin Sodium) 20 Mg Tablet, 20 MG PO HS, (Reported) Entered as Reported by: PIPPA KNOTT on 06/04/18401 Last Action: Held Prednisone (Prednisone) 1 Mg Tab, 3 MG PO DAILY, (Reported) Entered as Reported by: STEFANY RIVAS on 03/17/23 1324 Last Action: Continued Tramadol HCl (Tramadol HCl) 50 Mg Tablet, 50 MG PO TID PRN for PAIN-MODERATE (5- 7), (Reported) Entered as Reported by: STEFANY RIVAS on 03/17/23 1324 Last Action: Continued Discontinued Medications Aspirin (Aspirin) 81 Mg Tab.chew, 81 MG PO HS, (Reported) Discontinued Reason: No Longer Taking Entered as Reported by: MAYRA CHAVES on 03/17/171424 Last Action: Discontinued Cyanocobalamin (Cyanocobalamin Injection) 1,000 Mcg/Ml Inj, 1,000 MCG IJ MONTHLY, (Reported) Discontinued Reason: No Longer Taking Entered as Reported by: MAYRA CHAVES on 03/17/171424 Last Action: Discontinued Cyclobenzaprine HCl (Cyclobenzaprine HCl) 10 Mg Tablet, 10 MG PO Q8H PRN for SPASMS Discontinued Reason: No Longer Taking Prescribed by: KAMILA HITCHCOCK on 10/23/18 141 Last Action: Discontinued Doxycycline Hyclate (Doxycycline Hyclate) 100 Mg Tablet, 100 MG PO BID Discontinued Reason: No Longer Taking Prescribed by: EFE LARA on 02/05/201955 Last Action: Discontinued Dronedarone HCl (Multaq) 400 Mg Tablet, 400 MG PO BID, (Reported) Discontinued Reason: No Longer Taking Entered as Reported by: MAYRA CHAVES on 03/17/171424 Last Action: Discontinued Dronedarone HCl (Multaq) 400 Mg Tablet, (Reported) Discontinued Reason: No Longer Taking Entered as Reported by: PIPPA KNOTT on 06/04/18 0402 Last Action: Discontinued Ferrous Sulfate (Ferrous Sulfate) 325 Mg Tablet, 325 MG PO HS, (Reported) Discontinued Reason: No Longer Taking Entered as Reported by: JAE DAS on 03/17/17 3416 Last Action: Discontinued Gabapentin (Neurontin) 300 Mg Capsule, 600 MG PO DAILY, (Reported) Discontinued Reason: No Longer Taking Entered as Reported by: STEFANY RIVAS on 03/17/23 1324 Last Action: Discontinued Lactobacillus Acidophilus (Acidophilus) 1 Each Capsule, 2 EACH PO QID Discontinued Reason: No Longer Taking Prescribed by: INOCENCIO WALL on 06/04/18 1375 Last Action: Discontinued Lactobacillus Acidophilus (Acidophilus Lactobacillus) 1 Gm Powder, 1 GM MC QID Discontinued Reason: No Longer Taking Prescribed by: INOCENCIO WALL on 06/04/18 0654 Last Action: Discontinued Metformin HCl (Metformin HCl) 500 Mg Tablet, (Reported) Discontinued Reason: No Longer Taking Entered as Reported by: PIPPA KNOTT on 06/04/18 0402 Last Action: Discontinued Multivitamin (Multivitamins) 1 Each Tablet, 1 TAB PO DAILY, (Reported) Discontinued Reason: No Longer Taking Entered as Reported by: MAYRA CHAVES on 03/17/171424 Last Action: Discontinued [place]-3/Dha/Epa/Fish Oil (Fish Oil 1,400 mg Softgel) 1 Each Capsule.dr, 1,400 MG PO BID, (Reported) Discontinued Reason: No Longer Taking Entered as Reported by: MAYRA CHAVES on 03/17/171424 Last Action: Discontinued Ondansetron (Ondansetron Odt) 4 Mg Tab.rapdis, 4 MG PO Q4H Discontinued Reason: No Longer Taking Prescribed by: INOCENCIO WALL on 06/04/18554 Last Action: Discontinued Potassium Chloride (Potassium Chloride) 10 Meq Tab.er.prt, 10 MEQ PO HS, (Reported) Discontinued Reason: No Longer Taking Entered as Reported by: JAE DAS on 03/17/17 0742 Last Action: Discontinued Rivaroxaban (Xarelto Tablet) 20 Mg Tablet, 20 MG PO HS, (Reported) Discontinued Reason: No Longer Taking Entered as Reported by: MAYRA CHAVES on 03/17/171424 Last Action: Discontinued Tizanidine HCl (Zanaflex) 2 Mg Capsule, 2 MG PO TID PRN for SPASMS Discontinued Reason: No Longer Taking Prescribed by: LEONIDES GRAF on 01/12/19 1012 Last Action: Discontinued Tramadol HCl (Tramadol HCl) 50 Mg Tablet, 50 MG PO Q6H PRN for PAIN Discontinued Reason: No Longer Taking Prescribed by: KAMILA HITCHCOCK on 10/23/18 1418 Last Action: Discontinued Tramadol HCl (Ultram) 50 Mg Tablet, 25-50 MG PO Q6H PRN for PAIN-BREAKTHROUGH Discontinued Reason: No Longer Taking Prescribed by: LEONIDES GRAF on 01/12/19 1012 Last Action: Discontinued Past Xirsidv-Ysjpsm-Bcxclq Hx Patient Social History Marrital Status: Employed/Student: retired Smoking Status: Never a Smoker Past Medical History Atrial Fibrillation, High Cholesterol, Hypertension Gastroesophageal Reflux, Gastrointestinal Bleed Arthritis Review of Systems Constitutional: see HPI, chills, fever, weakness Gastrointestinal: abdominal pain (diffusely tender), diarrhea, nausea, vomiting Physical Exam General Appearance: WD/WN, Anxious, Chronically ill, Mild Distress, Other (jaundiced) Eyes: Bilateral Eye Normal Inspection, Bilateral Eye PERRL, Bilateral Eye EOMI HEENT: PERRL/EOMI, Normal ENT Inspection, Pharynx Normal, Scleral Icterus (L), Scleral Icterus (R) Neck: Full Range of Motion, Normal Inspection, Non Tender, Supple, Carotid Bruit Respiratory: Chest Non Tender, Lungs Clear, Normal Breath Sounds, No Accessory Muscle Use, No Respiratory Distress Cardiovascular: Regular Rate, Rhythm, No Edema, No Gallop, No JVD, No Murmur, Normal Peripheral Pulses Gastrointestinal: Normal Bowel Sounds, No Organomegaly, No Pulsatile Mass, Non Tender, Soft Back: Normal Inspection, No CVA Tenderness, No Vertebral Tenderness Extremity: Normal Capillary Refill, Normal Inspection, Normal Range of Motion, Non Tender, No Calf Tenderness, No Pedal Edema Neurologic/Psychiatric: Alert, Oriented x3, No Motor/Sensory Deficits, Normal Mood/Affect Skin: Normal Color, Warm/Dry Lymphatic: No Adenopathy Assessment/Plan Assessment and Plan Assessment: Sepsis PNA Acute hypoxic resp failure Acute liver failure Ductal system blockage with stones HTN AF OP PMR CKD DM Hypoglycemia Plan: MRCP Dr Lobato ICU IV abx Admission Diagnosis Admission Status: Inpatient Order (span 2 midnights) Reason for Inpatient Admission: sepiss with liver failure and PNA Supervisory-Addendum Brief Verification & Attestation Participated in pt care: history, MDM, physical Personally performed: exam, history, MDM, supervision of care Care discussed with: Medical Student Procedures: n/a Results interpretation: Verified all documentation Verification and Attestation of Medical Student E/M Service A medical student performed and documented this service in my presence. I reviewed and verified all information documented by the medical student and made modifications to such information, when appropriate. I personally performed the physical exam and medical decision making. Meaghan Masterson, Mar 18, 2023,04:40 SAMUEL ROSE Mar 17, 2023 12:42 MEAGHAN MASTERSON DO Mar 18, 2023 04:40
--- NOTE | 2023-03-17 13:11 | Diagnostic Imaging Report ---
DATE: 03/17/2023 12:35 PM REASON FOR EXAM: Possible choledocholithiasis. Abdominal pain. COMPARISON: CT performed earlier the same date. TECHNIQUE: Multiplanar and multisequence MRI of the abdomen was performed without contrast. MRCP sequences were performed. 3D reformats were constructed and reviewed. FINDINGS: The liver is normal in size. No signal loss is seen on [id number] imaging to suggest hepatic steatosis. No focal hepatic lesions. The flow void within the portal vein is intact. The gallbladder is surgically absent. There is intra and extrahepatic biliary dilation with the common bile duct measuring 0.9 cm. A filling defect is seen within the mid common bile duct measuring up to 1.0 cm. Additional smaller filling defect is seen in the distal common bile duct measuring 0.3 cm. The pancreatic duct is nondilated. No peripancreatic inflammatory changes are seen. No evidence of focal pancreatic lesion. No ascites. The spleen, adrenal glands, and kidneys have an unremarkable MRI appearance. No lymphadenopathy is seen in the abdomen. The included loops of bowel are nondilated. Small bilateral pleural effusions are seen with bibasilar opacities, right greater than left. The heart size is prominent. IMPRESSION: 1. Findings suggestive of choledocholithiasis with a prominent filling defect measuring 1.0 cm in the mid common bile duct and a smaller filling defect in the distal common bile duct measuring 0.3 cm. Recommend ERCP to further evaluate. 2. Bilateral small pleural effusions with bibasilar opacities. 3. Cardiomegaly. Dictated by: Dictated on workstation # [id number]
[2023-03-17] MEDS ORDERED: OMEG12002 PO (13:24)
[2023-03-17] MEDS ORDERED: TRAM50TA3 PO (13:24)
[2023-03-17] MEDS ORDERED: PANT40TA52 PO (13:24)
[2023-03-17] MEDS ORDERED: CALC600T91 PO (13:24)
[2023-03-17] MEDS ORDERED: PRD1T PO (13:24)
[2023-03-17] MEDS ORDERED: POTA-160 PO (13:24)
[2023-03-17] MEDS ORDERED: ABAL1.56 IJ (13:24)
[2023-03-17] MEDS ORDERED: LIDO700A45 TD (13:24)
[2023-03-17] MEDS ORDERED: GABA300C PO ×2 (13:24)
[2023-03-17] MEDS ORDERED: APIX2.5T PO (13:24)
[2023-03-17] MEDS ORDERED: MAGN400T39 PO (13:24)
[2023-03-17] MEDS: CEFEPIME 1,000 MG/NS 50 ML IVPB IV SCH ×4 (14:29→21:16)
[2023-03-17] MEDS: ONDANSETRON INJECTION 4 MG/2 ML (SDV) IV PRN (16:26)
--- NOTE | 2023-03-17 16:56 | Consultation - Surgery ---
History of Present Illness History of Present Illness Patient Consulted On(donis/time) 03/17/23 16:51 Time Seen by Provider: 15:51 History of Present Illness Surgery asked to consult regarding abdominal pain and vomiting. HPI per ED: Patient is a 77-year-old female who presents to the emergency department by ambulance from home chief complaint weakness, diarrhea, fever. Apparently the patient has been sick with diarrhea for about 3 weeks, started running fever earlier in the day. She presents tachycardic, hypoxic in the upper 80s, altered mental status profound malaise. She is very slow to respond, appears chronically ill. She is very pale with pale conjunctivae. Her abdomen is diffusely tender. Hypoactive bowel sounds. she has a systolic murmur with her tachycardia, clear lungs bilaterally. She cannot quantify the number of stools she is having a day. She is not sure if there is blood present in her stools. She lives with her son who is not yet present in the emergency department for further history. EMS reports fever 101. Timing/Duration: Other (3 weeks of diarrhea, 1 day fever) Severity: Severe Associated Systoms: Shortness of Air, Weakness When I saw the pt in the ICU she looked comfortable. She states she has had this abdominal pain for 3 weeks it is associated with diarrhea and has come and gone in the three weeks. She reported having some moderate pain when I saw her and stated it went from "the top of my belly to the bottom". She denied any Nausea or vomiting when I saw her. She states she had her gallbladder removed in [place] by Dr. Chaudhari and is not sure if a cholagiogram was doen at that time. She states she feels better than last night. Allergies and Home Medications Allergies Coded Allergies: amiodarone (Verified Allergy, Intermediate, 07/29/07) butorphanol (Verified Allergy, Intermediate, 07/29/07) codeine (Verified Allergy, Intermediate, 07/29/07) epinephrine (Verified Allergy, Intermediate, 07/29/07) hydrocodone (Verified Allergy, Intermediate, 07/29/07) morphine (Verified Allergy, Intermediate, 07/29/07) Patient Home Medication List Home Medication List Reviewed: Yes Abaloparatide (Tymlos) 80 Mcg/Dose (3120 Mcg/1.56 Ml) Pen.injctr, 80 MG IJ HS, (Reported) Entered as Reported by: STEFANY RIVAS on 03/17/231323 Last Action: Reviewed Apixaban (Eliquis) 2.5 Mg Tablet, 2.5 MG PO BID, (Reported) Entered as Reported by: STEFANY RIVAS on 03/17/231323 Last Action: Reviewed Calcium Carbonate (Calcium) 600 Mg Calcium (1500 Mg) Tablet, 600 MG PO HS, (Reported) Entered as Reported by: STEFANY RIVAS on 03/17/231323 Last Action: Reviewed Diltiazem HCl (Diltiazem 24Hr ER) 240 Mg Cap.er.24h, 240 MG PO DAILY, (Reported) Entered as Reported by: MAYRA CHAVES on 03/17/171424 Last Action: Reviewed Fenofibric Acid (Choline) (Fenofibric Acid) 135 Mg Capsule.dr, 135 MG PO HS, (Reported) Entered as Reported by: MAYRA CHAVES on 03/17/171424 Last Action: Reviewed Gabapentin (Neurontin) 300 Mg Capsule, 300 MG PO TID, (Reported) Entered as Reported by: STEFANY RIVAS on 03/17/231323 Last Action: Reviewed Glyburide (Glyburide) 5 Mg Tablet, 5 MG PO DAILY, (Reported) Entered as Reported by: PIPPA KNOTT on 06/04/18401 Last Action: Reviewed Hydrochlorothiazide (Hydrochlorothiazide) 25 Mg Tablet, 25 MG PO DAILY, (Reported) Entered as Reported by: PIPPA KNOTT on 06/04/18401 Last Action: Reviewed Levocetirizine Dihydrochloride (Levocetirizine Dihydrochloride) 5 Mg Tablet, 5 MG PO HS, (Reported) Entered as Reported by: MAYRA CHAVES on 03/17/17 141 Last Action: Reviewed Lidocaine (Lidocaine 5% Patch) 5 % Adh..patch, 1 PATCH TD DAILY PRN for PAIN- BREAKTHROUGH, (Reported) Entered as Reported by: STEFANY RIVAS on 03/17/231323 Last Action: Reviewed Losartan Potassium (Losartan Potassium) 100 Mg Tablet, 100 MG PO HS, (Reported) Entered as Reported by: JAE DAS on 03/17/17 0742 Last Action: Reviewed Magnesium Oxide (Magnesium) 400 Mg Magnesium Tablet, 400 MG PO HS, (Reported) Entered as Reported by: STEFANY RIVAS on 03/17/231323 Last Action: Reviewed Metoprolol Succinate (Metoprolol Succinate) 200 Mg Tab.er.24h, 200 MG PO DAILY, (Reported) Entered as Reported by: MAYRA CHAVES on 03/17/171424 Last Action: Reviewed Agua Dulce-3/Dha/Epa/Fish Oil (Fish Oil 1,200 mg Softgel) 1,200 Mg (144 Mg-216 Mg) Capsule, 1,200 MG PO TID, (Reported) Entered as Reported by: STEFANY RIVAS on 03/17/231323 Last Action: Reviewed Pantoprazole Sodium (Pantoprazole Sodium) 40 Mg Tablet.dr, 40 MG PO DAILY, (Reported) Entered as Reported by: STEFANY RIVAS on 03/17/231323 Last Action: Reviewed Potassium Chloride (Klor-Con 10) 10 Meq Tablet.er, 20 MEQ PO BID, (Reported) Entered as Reported by: STEFANY RIVAS on 03/17/231323 Last Action: Reviewed Pravastatin Sodium (Pravastatin Sodium) 20 Mg Tablet, 20 MG PO HS, (Reported) Entered as Reported by: PIPPA KNOTT on 06/04/18 0402 Last Action: Reviewed Prednisone (Prednisone) 1 Mg Tab, 3 MG PO DAILY, (Reported) Entered as Reported by: STEFANY RIVAS on 03/17/231323 Last Action: Reviewed Tramadol HCl (Tramadol HCl) 50 Mg Tablet, 50 MG PO TID PRN for PAIN-MODERATE (5- 7), (Reported) Entered as Reported by: STEFANY RIVAS on 03/17/231323 Last Action: Reviewed Discontinued Medications Aspirin (Aspirin) 81 Mg Tab.chew, 81 MG PO HS, (Reported) Discontinued Reason: No Longer Taking Entered as Reported by: MAYRA CHAVES on 03/17/171424 Last Action: Discontinued Cyanocobalamin (Cyanocobalamin Injection) 1,000 Mcg/Ml Inj, 1,000 MCG IJ MONTHLY, (Reported) Discontinued Reason: No Longer Taking Entered as Reported by: MAYRA CHAVES on 03/17/171424 Last Action: Discontinued Cyclobenzaprine HCl (Cyclobenzaprine HCl) 10 Mg Tablet, 10 MG PO Q8H PRN for SPASMS Discontinued Reason: No Longer Taking Prescribed by: KAMILA HITCHCOCK on 10/23/18 1418 Last Action: Discontinued Doxycycline Hyclate (Doxycycline Hyclate) 100 Mg Tablet, 100 MG PO BID Discontinued Reason: No Longer Taking Prescribed by: EFE LARA on 02/05/201955 Last Action: Discontinued Dronedarone HCl (Multaq) 400 Mg Tablet, 400 MG PO BID, (Reported) Discontinued Reason: No Longer Taking Entered as Reported by: MAYRA CHAVES on 03/17/17 142 Last Action: Discontinued Dronedarone HCl (Multaq) 400 Mg Tablet, (Reported) Discontinued Reason: No Longer Taking Entered as Reported by: PIPPA KNOTT on 06/04/18401 Last Action: Discontinued Ferrous Sulfate (Ferrous Sulfate) 325 Mg Tablet, 325 MG PO HS, (Reported) Discontinued Reason: No Longer Taking Entered as Reported by: JAE DAS on 03/17/17 0742 Last Action: Discontinued Gabapentin (Neurontin) 300 Mg Capsule, 600 MG PO DAILY, (Reported) Discontinued Reason: No Longer Taking Entered as Reported by: STEFANY RIVAS on 03/17/23 1324 Last Action: Discontinued Lactobacillus Acidophilus (Acidophilus) 1 Each Capsule, 2 EACH PO QID Discontinued Reason: No Longer Taking Prescribed by: INOCENCIO WALL on 06/04/18 0555 Last Action: Discontinued Lactobacillus Acidophilus (Acidophilus Lactobacillus) 1 Gm Powder, 1 GM MC QID Discontinued Reason: No Longer Taking Prescribed by: INOCENCIO WALL on 06/04/18 0654 Last Action: Discontinued Metformin HCl (Metformin HCl) 500 Mg Tablet, (Reported) Discontinued Reason: No Longer Taking Entered as Reported by: PIPPA KNOTT on 06/04/18401 Last Action: Discontinued Multivitamin (Multivitamins) 1 Each Tablet, 1 TAB PO DAILY, (Reported) Discontinued Reason: No Longer Taking Entered as Reported by: MAYRA CHAVES on 03/17/171424 Last Action: Discontinued Agua Dulce-3/Dha/Epa/Fish Oil (Fish Oil 1,400 mg Softgel) 1 Each Capsule.dr, 1,400 MG PO BID, (Reported) Discontinued Reason: No Longer Taking Entered as Reported by: MAYRA CHAVES on 03/17/171424 Last Action: Discontinued Ondansetron (Ondansetron Odt) 4 Mg Tab.rapdis, 4 MG PO Q4H Discontinued Reason: No Longer Taking Prescribed by: INOCENCIO WALL on 06/04/18 0555 Last Action: Discontinued Potassium Chloride (Potassium Chloride) 10 Meq Tab.er.prt, 10 MEQ PO HS, (Reported) Discontinued Reason: No Longer Taking Entered as Reported by: JAE DAS on 03/17/17 0742 Last Action: Discontinued Rivaroxaban (Xarelto Tablet) 20 Mg Tablet, 20 MG PO HS, (Reported) Discontinued Reason: No Longer Taking Entered as Reported by: MAYRA CHAVES on 03/17/17 1425 Last Action: Discontinued Tizanidine HCl (Zanaflex) 2 Mg Capsule, 2 MG PO TID PRN for SPASMS Discontinued Reason: No Longer Taking Prescribed by: LEONIDES GRAF on 01/12/19 1012 Last Action: Discontinued Tramadol HCl (Tramadol HCl) 50 Mg Tablet, 50 MG PO Q6H PRN for PAIN Discontinued Reason: No Longer Taking Prescribed by: KAMILA HITCHCOCK on 10/23/18 1418 Last Action: Discontinued Tramadol HCl (Ultram) 50 Mg Tablet, 25-50 MG PO Q6H PRN for PAIN-BREAKTHROUGH Discontinued Reason: No Longer Taking Prescribed by: LEONIDES GRAF on 01/12/19 1012 Last Action: Discontinued Past Guopnig-Tjgqik-Oxvyix Hx Patient Social History Smoking Status: Never a Smoker 2nd Hand Smoke Exposure: No Recent Hopitalizations: No Alcohol Use?: No Immunizations Up To Date Date of Pneumonia Vaccine: Nov 12, 2008 Date of Influenza Vaccine: Jan 13, 2017 Seasonal Allergies Seasonal Allergies: No Surgeries History of Surgeries: Yes (l breast mastectomy) Surgeries: Appendectomy, Breast, Cardiac, CABG, Section, Gallbladder, Hysterectomy, Orthopedic Respiratory History of Respiratory Disorde: No Cardiovascular History of Cardiac Disorders: Yes Cardiac Disorders: Atrial Fibrillation, Chronic Edema/Swelling, Coronary Artery Disease, High Cholesterol, Hypertension Neurological History of Neurological Disord: No Reproductive System Hx Reproductive Disorders: No Female Reproductive Disorders: Denies 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 Genitourinary History of Genitourinary Disor: Yes (stage 3 kidney failure) Genitourinary Disorders: Kidney Stones, Renal Failure Gastrointestinal History of Gastrointestinal Di: Yes Gastrointestinal Disorders: Gastroesophageal Reflux, Hiatal Hernia Musculoskeletal History of Musculoskeletal Dis: Yes Musculoskeletal Disorders: Arthritis, Rheumatoid Arthritis Endocrine History of Endocrine Disorders: Yes Endocrine Disorders: Diabetes, Non-Insulin dep HEENT History of HEENT Disorders: Yes HEENT Disorders: Cataract Loss of Vision: Denies Hearing Impairment: Denies Cancer History of Cancer: Yes Cancer: Breast Psychosocial History of Psychiatric Problem: No Integumentary History of Skin or Integumenta: No Blood Transfusions History of Blood Disorders: No Family Medical History Significant Family History: Heart Disease (Multiple sibling and three had CABG), Cancer (Brother of melanoma, Mother of "bone cancer") Review of Systems-General Constitutional: chills, fever, malaise, weakness EENTM: No blurred vision, No mouth pain, No mouth swelling, No epistaxis Respiratory: cough, dyspnea on exertion; No hemoptysis; short of breath Cardiovascular: No chest pain; Hx of Intervention, palpitations Gastrointestinal: abdominal pain, diarrhea, jaundice; No nausea, No vomiting Genitourinary: No dysuria, No frequency, No hematuria Musculoskeletal: back pain, joint pain, joint swelling, muscle stiffness Skin: No change in color, No change in hair/nails Psychiatric/Neurological: Denies Anxiety, Denies Depressed, Denies Seizure, Denies Tremors Physical Exam-General Problems Physical Exam Vital Signs Vital Signs - First Documented 03/17/23 03/17/23 01:10 01:15 Temp 39.0 Pulse 96 Resp 20 B/P (MAP) 180/69 (106) Pulse Ox 98 O2 Delivery Room Air O2 Flow Rate 2.00 Capillary Refill : Less Than 3 Seconds General Appearance: mild distress, obese Eyes: Bilateral Eye PERRL, Bilateral Eye EOMI HEENT: pharynx normal, scleral icterus (R) (very subtle), scleral icterus (L) Neck: non-tender, supple Respiratory: no respiratory distress, no accessory muscle use, decreased breath sounds, crackles (at bases) Cardiovascular: tachycardia, systolic murmur Gastrointestinal: soft, no organomegaly, tenderness (diffusely), hernia (incarcerated umbilical) Back: no CVA tenderness, no vertebral tenderness Extremities: no pedal edema, no calf tenderness, normal capillary refill 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, alert, normal mood/affect, oriented x 3 Skin: warm/dry, jaundice Lymphatic: no adenopathy (neck, axilla or groin) Data Review Labs Laboratory Tests 03/17/23 01:10: White Blood Count 5.4, Red Blood Count 3.92, Hemoglobin 11.9, Hematocrit 36, Mean Corpuscular Volume 93, Mean Corpuscular Hemoglobin 30, Mean Corpuscular Hemoglobin Concent 33, Red Cell Distribution Width 19.5H, Platelet Count 144, Mean Platelet Volume , Immature Granulocyte % (Auto) 1, Neutrophils (%) (Auto) 91H, Lymphocytes (%) (Auto) 4L, Monocytes (%) (Auto) 3, Eosinophils (%) (Auto) 0, Basophils (%) (Auto) 1, Neutrophils # (Auto) 4.9, Lymphocytes # (Auto) 0.2L, Monocytes # (Auto) 0.2, Eosinophils # (Auto) 0.0, Basophils # (Auto) 0.0, Immature Granulocyte # (Auto) 0.1, Neutrophils % (Manual) 87, Lymphocytes % (Manual) 5, Monocytes % (Manual) 2, Band Neutrophils 6, Percent Immature Platelet Fraction 9.0H, Polychromasia SLIGHT, Poikilocytosis SLIGHT, Anisocytosis MODERATE, Elliptocytes MODERATE, Prothrombin Time 15.3H, INR Comment 1.2, Activated Partial Thromboplast Time 29, Sodium Level 138, Potassium Level 3.5L, Chloride Level 107, Carbon Dioxide Level 20L, Anion Gap 11, Blood Urea Nitrogen 19H, Creatinine 0.79, Estimat Glomerular Filtration Rate 76, BUN/Creatinine Ratio 24, Glucose Level 222H, Lactic Acid Level 2.43*H, Calcium Level 9.1, Corrected Calcium 9.2, Total Bilirubin 4.6H, Aspartate Amino Transf (AST/SGOT) 601H, Alanine Aminotransferase (ALT/SGPT) 283H, Alkaline Phosphatase 194H, Total Protein 6.6, Albumin 3.9, Influenza Type A (RT-PCR) Not Detected, Influenza Type B (RT-PCR) Not Detected, SARS-CoV-2 RNA (RT-PCR) Not Detected 03/17/23 01:40: Urine Color YELLOW, Urine Clarity SL CLOUDY, Urine pH 6.0, Urine Specific [place] 1.015L, Urine Protein 1+H, Urine Glucose (UA) 2+H, Urine Ketones NEGATIVE, Urine Nitrite NEGATIVE, Urine Bilirubin 1+H, Urine Urobilinogen 2.0, Urine Leukocyte Esterase NEGATIVE, Urine RBC (Auto) TRACEH, Urine RBC RARE, Urine WBC NONE, Urine Crystals NONE, Urine Bacteria NEGATIVE, Urine Casts PRESENT, Urine Hyaline Casts 0-2H, Urine Mucus NEGATIVE, Urine Culture Indicated NO 03/17/23 05:19: Lactic Acid Level 5.04*H 03/17/23 06:25: Glucometer 100 03/17/23 11:15: White Blood Count 17.0H, Red Blood Count 3.27L, Hemoglobin 9.9L, Hematocrit 30L, Mean Corpuscular Volume 92, Mean Corpuscular Hemoglobin 30, Mean Corpuscular Hemoglobin Concent 33, Red Cell Distribution Width 19.8H, Platelet Count 130, Mean Platelet Volume 12.1, Immature Granulocyte % (Auto) 2, Neutrophils (%) (Auto) 77H, Lymphocytes (%) (Auto) 6L, Monocytes (%) (Auto) 14H, Eosinophils (%) (Auto) 0, Basophils (%) (Auto) 0, Neutrophils # (Auto) 13.2H, Lymphocytes # (Auto) 1.0, Monocytes # (Auto) 2.4H, Eosinophils # (Auto) 0.0, Basophils # (Auto) 0.1, Immature Granulocyte # (Auto) 0.3H, Neutrophils % (Manual) 75, Lymphocytes % (Manual) 7, Monocytes % (Manual) 14, Eosinophils % (Manual) 1, Basophils % (Manual) 0, Band Neutrophils 3, Percent Immature Platelet Fraction 10.0H, Polychromasia SLIGHT, Anisocytosis MARKED, Elliptocytes SLIGHT, Prothrombin Time 17.7H, INR Comment 1.4, Sodium Level 141, Potassium Level 3.2L, Chloride Level 112H, Carbon Dioxide Level 20L, Anion Gap 9, Blood Urea Nitrogen 18, Creatinine 0.75, Estimat Glomerular Filtration Rate 81, BUN/Creatinine Ratio 24, Glucose Level 99, Calcium Level 8.3L, Corrected Calcium 8.9, Total Bilirubin 5.4H, Aspartate Amino Transf (AST/SGOT) 402H, Alanine Aminotransferase (ALT/SGPT) 292H, Alkaline Phosphatase 124, Total Protein 5.2L, Albumin 3.2 03/17/23 16:14: Glucometer 69L Radiology Date of Exam:03/17/23 MRI CHOLANGIO-PANCREATOGRAPHY DATE: 03/17/2023 12:35 PM REASON FOR EXAM: Possible choledocholithiasis. Abdominal pain. COMPARISON: CT performed earlier the same date. TECHNIQUE: Multiplanar and multisequence MRI of the abdomen was performed without contrast. MRCP sequences were performed. 3D reformats were constructed and reviewed. FINDINGS: The liver is normal in size. No signal loss is seen on [id number] imaging to suggest hepatic steatosis. No focal hepatic lesions. The flow void within the portal vein is intact. The gallbladder is surgically absent. There is intra and extrahepatic biliary dilation with the common bile duct measuring 0.9 cm. A filling defect is seen within the mid common bile duct measuring up to 1.0 cm. Additional smaller filling defect is seen in the distal common bile duct measuring 0.3 cm. The pancreatic duct is nondilated. No peripancreatic inflammatory changes are seen. No evidence of focal pancreatic lesion. No ascites. The spleen, adrenal glands, and kidneys have an unremarkable MRI appearance. No lymphadenopathy is seen in the abdomen. The included loops of bowel are nondilated. Small bilateral pleural effusions are seen with bibasilar opacities, right greater than left. The heart size is prominent. IMPRESSION: 1. Findings suggestive of choledocholithiasis with a prominent filling defect measuring 1.0 cm in the mid common bile duct and a smaller filling defect in the distal common bile duct measuring 0.3 cm. Recommend ERCP to further evaluate. 2. Bilateral small pleural effusions with bibasilar opacities. 3. Cardiomegaly. Dictated by: Dictated on workstation # [id number] Dict: 03/17/23 1253 Trans: 03/17/23 1315 [id number] [id number] Interpreted by: TREASURE EL DO Electronically signed by: TREASURE EL DO 03/17/23 1315 Assessment/Plan Assessment/Plan Assessment/Plan Pneumonia Choledochalithiasis Hyperbilirubinemia Leukocytosis Hypokalemia Chronic Afib on Eliquis I reviewed the CT and MRI myself and discussed the case with Dr. Sawant; as well as, calling Dr. Lance. Pt needs to be on a Gram Negative to cover for/prevent Cholangitis, she is on an ABX for pneumonia. Her Potassium needs to be replaced per ICU protocol. I told the nurse to hold the Eliquis for possible procedure. The pt has two stones in her CBD, 1cm and 0.3cm that need to be removed. I called Dr. Lance to make sure the 1cm stone was not too large and he thought it could still be removed with ERCP, but would need the biggest Sphincterotomy and should not do that while pt is anti- coagulated if it can be avoided. Will make sure she has pain control, IV fluids, anti-emetics as needed and can be on clears. Would repeat labs and monitor pt, hold off for three days if possible. JAE SORIA DO Mar 17, 2023 16:56
[2023-03-17] MEDS ORDERED: LIDOCAINE 4% PATCH EXT PRN (21:00)
[2023-03-17] MEDS: D5 NS 1,000 ML IV SOLN 1,000 ML IV SCH (21:15)
[2023-03-17] MEDS: GABAPENTIN 300 MG CAPSULE PO SCH (21:15)
[2023-03-17] MEDS: LORATADINE 10 MG TABLET PO SCH (21:21)
[2023-03-17] MEDS: hydrALAZINE INJECTION 20 MG/ML VIAL IV PRN (21:21)
[2023-03-17] MEDS: MAGNESIUM OXIDE 400 MG TABLET PO SCH (21:21)
[2023-03-17] MEDS: LOSARTAN 100 MG TABLET PO SCH (21:21)
[2023-03-17] MEDS ORDERED: DRON400T6 PO (21:33)
[2023-03-17] MEDS ORDERED: dilTIAZem INJ 25 MG/5 ML VIAL IVP ONE (22:00)
[2023-03-17] MEDS ORDERED: dilTIAZem DRIP PRE-MIX 0 ML IV ONE (22:07)
[2023-03-17] MEDS: dilTIAZem DRIP PRE-MIX 125 ML IV SCH (22:39)
[2023-03-17 23:24] LABS: HEMATOCRIT 31 % (35-52); HEMOGLOBIN 10.3 g/dL (11.5-16.0); MEAN CORPUSCULAR HEMOGLOBIN 31 pg (25-34); MEAN CORPUSCULAR HGB CONC 33 g/dL (32-36); MEAN CORPUSCULAR VOLUME 92 fL (80-99); MEAN PLATELET VOLUME 11.8 fL (9.0-12.2); PLATELET COUNT 116 10^3/uL (130-400)
[2023-03-17 23:34] LABS: INR 1.4 (0.8-1.4); PROTHROMBIN TIME PATIENT 17.6 SEC (12.2-14.7)
[2023-03-17] MEDS: HEParin 1000 UNIT/ML (10ML VIAL) FOR BOLUS IV PRN (23:55)
[2023-03-18] MEDS: HEParin DRIP 25000 UNIT/500ML 500 ML IV SCH ×2 (00:12→00:20)
[2023-03-18 04:17] LABS: EOSINOPHILS % (AUTO) 0 % (0-10); HEMATOCRIT 31 % (35-52); MEAN CORPUSCULAR VOLUME 93 fL (80-99); NEUTROPHILS % (AUTO) 79 % (42-75)
[2023-03-18 04:20] LABS: BASOPHILS % (AUTO) 0 % (0-10); HEMOGLOBIN 10.1 g/dL (11.5-16.0); LYMPHOCYTES % (AUTO) 8 % (12-44); MEAN CORPUSCULAR HEMOGLOBIN 30 pg (25-34); MEAN CORPUSCULAR HGB CONC 33 g/dL (32-36); MONOCYTES # (AUTO) 1.4 10^3/uL (0.0-1.0); MONOCYTES % (AUTO) 11 % (0-12); NEUTROPHILS # (AUTO) 10.3 10^3/uL (1.8-7.8); PLATELET COUNT 114 10^3/uL (130-400)
[2023-03-18 04:49] LABS: ALBUMIN 2.9 GM/DL (3.2-4.5); POTASSIUM 2.7 MMOL/L (3.6-5.0)
[2023-03-18 04:50] LABS: CALCIUM 7.9 MG/DL (8.5-10.1)
[2023-03-18 04:52] LABS: TOTAL PROTEIN 5.1 GM/DL (6.4-8.2)
[2023-03-18 04:53] LABS: BILIRUBIN,TOTAL 5.1 MG/DL (0.1-1.0)
[2023-03-18 04:55] LABS: CREATININE SERUM 0.67 MG/DL (0.60-1.30)
[2023-03-18] MEDS: CEFEPIME 1,000 MG/NS 50 ML IVPB IV SCH ×6 (05:06→21:27)
[2023-03-18] MEDS: PANTOPRAZOLE 40 MG TABLET PO SCH (05:06)
[2023-03-18] MEDS ORDERED: NS IV 500 ML 500 ML IV PRN (05:15)
[2023-03-18] MEDS ORDERED: POTASSIUM CL 10MEQ/50ML IVPB 400 ML IV ONE (05:17)
[2023-03-18] MEDS: POTASSIUM CL 10MEQ/50ML IVPB 50 ML IV SCH ×13 (05:20→21:18)
[2023-03-18] MEDS: POTASSIUM CHLORIDE 20 MEQ TABLET PO SCH (05:20)
[2023-03-18] MEDS: MAGNESIUM 1 GM/100 ML IVPB 100 ML IV SCH ×7 (05:22→11:14)
[2023-03-18] MEDS: inSUlin ASPART 1 UNIT/0.01 ML (PER UNIT) SC SCH ×4 (05:28→21:22)
--- NOTE | 2023-03-18 08:16 | Consultation-Cardiology ---
HPI-Cardiology Cardiology Consultation Date of Consultation 03/18/23 Date of Admission Time Seen by Provider: 08:10 Indication: Atrial fibrillation HPI 77-year-old lady with history of paroxysmal atrial fibrillation, coronary artery disease, admitted with nausea and vomiting, abdominal pain and diarrhea. She was diagnosed with cholangitis and 2 gallstones in the common bile duct in addition to pneumonia receiving antibiotics and arrangement for possible transfer for ERCP has been made. Patient did not take her Cardizem or Multaq recently. She went back to atrial fibrillation with rapid ventricular response last night. I started her on Cardizem drip, feeling better at this point. Still borderline tachycardic Home Medications & Allergies Allergies: Coded Allergies: amiodarone (Verified Allergy, Intermediate, 07/29/07) butorphanol (Verified Allergy, Intermediate, 07/29/07) codeine (Verified Allergy, Intermediate, 07/29/07) epinephrine (Verified Allergy, Intermediate, 07/29/07) hydrocodone (Verified Allergy, Intermediate, 07/29/07) morphine (Verified Allergy, Intermediate, 07/29/07) Home Medication List Reviewed: Yes [id number]-[id number] Hx Patient Social History Marital Status: , Employed/Student: retired Smoking Status: Never a Smoker 2nd Hand Smoke Exposure: No Recent Hopitalizations: No Alcohol Use?: No Immunizations Up To Date Date of Pneumonia Vaccine: Nov 12, 2008 Date of Influenza Vaccine: Jan 13, 2017 Past Medical History Discussed below Family Medical History Significant Family History: Heart Disease (Multiple sibling and three had CABG), Cancer (Brother of melanoma, Mother of "bone cancer") Review of Systems-General Review of Systems Constitutional: see HPI, chills, fever, weakness EENTM: No blurred vision, No mouth pain, No mouth swelling, No epistaxis Respiratory: see HPI, cough, dyspnea on exertion; No hemoptysis; short of breath Cardiovascular: see HPI; No chest pain; Hx of Intervention, palpitations Gastrointestinal: see HPI, abdominal pain (diffusely tender), diarrhea, nausea, vomiting Genitourinary: see HPI; No dysuria, No frequency, No hematuria Musculoskeletal: back pain, joint pain, joint swelling, muscle stiffness Skin: No change in color, No change in hair/nails Psychiatric/Neurological: Denies Anxiety, Denies Depressed, Denies Seizure, Denies Tremors Reviewed Test Results Reviewed Test Results Lab Laboratory Tests Test 03/17/23 11:15 03/17/23 16:14 03/17/23 17:08 03/17/23 20:36 Range/Units White Blood Count 17.0 H 4.3-11.0 10^3/uL Red Blood Count 3.27 L 3.80-5.11 10^6/uL Hemoglobin 9.9 L 11.5-16.0 g/dL Hematocrit 30 L 35-52 % Mean Corpuscular Volume 92 80-99 fL Mean Corpuscular Hemoglobin 30 25-34 pg Mean Corpuscular Hemoglobin Concent 33 32-36 g/dL Red Cell Distribution Width 19.8 H 10.0-14.5 % Platelet Count 130 130-400 10^3/uL Mean Platelet Volume 12.1 9.0-12.2 fL Immature Granulocyte % (Auto) 2 % Neutrophils (%) (Auto) 77 H 42-75 % Lymphocytes (%) (Auto) 6 L 12-44 % Monocytes (%) (Auto) 14 H 0-12 % Eosinophils (%) (Auto) 0 0-10 % Basophils (%) (Auto) 0 0-10 % Neutrophils # (Auto) 13.2 H 1.8-7.8 10^3/uL Lymphocytes # (Auto) 1.0 1.0-4.0 10^3/uL Monocytes # (Auto) 2.4 H 0.0-1.0 10^3/uL Eosinophils # (Auto) 0.0 0.0-0.3 10^3/uL Basophils # (Auto) 0.1 0.0-0.1 10^3/uL Immature Granulocyte # (Auto) 0.3 H 0.0-0.1 10^3/uL Neutrophils % (Manual) 75 % Lymphocytes % (Manual) 7 % Monocytes % (Manual) 14 % Eosinophils % (Manual) 1 % Basophils % (Manual) 0 % Band Neutrophils 3 % Percent Immature Platelet Fraction 10.0 H 0.0-7.6 % Polychromasia SLIGHT Anisocytosis MARKED Elliptocytes SLIGHT Prothrombin Time 17.7 H 12.2-14.7 SEC INR Comment 1.4 0.8-1.4 Sodium Level 141 135-145 MMOL/L Potassium Level 3.2 L 3.6-5.0 MMOL/L Chloride Level 112 H 98-107 MMOL/L Carbon Dioxide Level 20 L 21-32 MMOL/L Anion Gap 9 5-14 MMOL/L Blood Urea Nitrogen 18 7-18 MG/DL Creatinine 0.75 0.60-1.30 MG/DL Estimat Glomerular Filtration Rate 81 BUN/Creatinine Ratio 24 Glucose Level 99 70-105 MG/DL Calcium Level 8.3 L 8.5-10.1 MG/DL Corrected Calcium 8.9 8.5-10.1 MG/DL Total Bilirubin 5.4 H 0.1-1.0 MG/DL Aspartate Amino Transf (AST/SGOT) 402 H 5-34 U/L Alanine Aminotransferase (ALT/SGPT) 292 H 0-55 U/L Alkaline Phosphatase 124 40-136 U/L Total Protein 5.2 L 6.4-8.2 GM/DL Albumin 3.2 3.2-4.5 GM/DL Glucometer 69 L 92 52 *L 70-110 MG/DL Test 03/17/23 22:01 03/17/23 23:15 03/18/23 03:54 Range/Units Glucometer 98 70-110 MG/DL White Blood Count 14.0 H 13.0 H 4.3-11.0 10^3/uL Red Blood Count 3.35 L 3.32 L 3.80-5.11 10^6/uL Hemoglobin 10.3 L 10.1 L 11.5-16.0 g/dL Hematocrit 31 L 31 L 35-52 % Mean Corpuscular Volume 92 93 80-99 fL Mean Corpuscular Hemoglobin 31 30 25-34 pg Mean Corpuscular Hemoglobin Concent 33 33 32-36 g/dL Red Cell Distribution Width 20.0 H 19.9 H 10.0-14.5 % Platelet Count 116 L 114 L 130-400 10^3/uL Mean Platelet Volume 11.8 9.0-12.2 fL Prothrombin Time 17.6 H 12.2-14.7 SEC INR Comment 1.4 0.8-1.4 Activated Partial Thromboplast Time 37 H 87 H 24-35 SEC Immature Granulocyte % (Auto) 2 % Neutrophils (%) (Auto) 79 H 42-75 % Lymphocytes (%) (Auto) 8 L 12-44 % Monocytes (%) (Auto) 11 0-12 % Eosinophils (%) (Auto) 0 0-10 % Basophils (%) (Auto) 0 0-10 % Neutrophils # (Auto) 10.3 H 1.8-7.8 10^3/uL Lymphocytes # (Auto) 1.0 1.0-4.0 10^3/uL Monocytes # (Auto) 1.4 H 0.0-1.0 10^3/uL Eosinophils # (Auto) 0.0 0.0-0.3 10^3/uL Basophils # (Auto) 0.0 0.0-0.1 10^3/uL Immature Granulocyte # (Auto) 0.2 H 0.0-0.1 10^3/uL Percent Immature Platelet Fraction 10.6 H 0.0-7.6 % Sodium Level 140 135-145 MMOL/L Potassium Level 2.7 L 3.6-5.0 MMOL/L Chloride Level 112 H 98-107 MMOL/L Carbon Dioxide Level 19 L 21-32 MMOL/L Anion Gap 9 5-14 MMOL/L Blood Urea Nitrogen 14 7-18 MG/DL Creatinine 0.67 0.60-1.30 MG/DL Estimat Glomerular Filtration Rate 89 BUN/Creatinine Ratio 21 Glucose Level 79 70-105 MG/DL Calcium Level 7.9 L 8.5-10.1 MG/DL Corrected Calcium 8.8 8.5-10.1 MG/DL Magnesium Level 1.3 L 1.6-2.4 MG/DL Total Bilirubin 5.1 H 0.1-1.0 MG/DL Aspartate Amino Transf (AST/SGOT) 176 H 5-34 U/L Alanine Aminotransferase (ALT/SGPT) 208 H 0-55 U/L Alkaline Phosphatase 103 40-136 U/L Total Protein 5.1 L 6.4-8.2 GM/DL Albumin 2.9 L 3.2-4.5 GM/DL Radiology Date of Exam:03/17/23 MRI CHOLANGIO-PANCREATOGRAPHY DATE: 03/17/2023 12:35 PM REASON FOR EXAM: Possible choledocholithiasis. Abdominal pain. COMPARISON: CT performed earlier the same date. TECHNIQUE: Multiplanar and multisequence MRI of the abdomen was performed without contrast. MRCP sequences were performed. 3D reformats were constructed and reviewed. FINDINGS: The liver is normal in size. No signal loss is seen on [id number] imaging to suggest hepatic steatosis. No focal hepatic lesions. The flow void within the portal vein is intact. The gallbladder is surgically absent. There is intra and extrahepatic biliary dilation with the common bile duct measuring 0.9 cm. A filling defect is seen within the mid common bile duct measuring up to 1.0 cm. Additional smaller filling defect is seen in the distal common bile duct measuring 0.3 cm. The pancreatic duct is nondilated. No peripancreatic inflammatory changes are seen. No evidence of focal pancreatic lesion. No ascites. The spleen, adrenal glands, and kidneys have an unremarkable MRI appearance. No lymphadenopathy is seen in the abdomen. The included loops of bowel are nondilated. Small bilateral pleural effusions are seen with bibasilar opacities, right greater than left. The heart size is prominent. IMPRESSION: 1. Findings suggestive of choledocholithiasis with a prominent filling defect measuring 1.0 cm in the mid common bile duct and a smaller filling defect in the distal common bile duct measuring 0.3 cm. Recommend ERCP to further evaluate. 2. Bilateral small pleural effusions with bibasilar opacities. 3. Cardiomegaly. Dictated by: Dictated on workstation # [id number] Dict: 03/17/23 1253 Trans: 03/17/23 1315 [id number] [id number] Interpreted by: TREASURE EL DO Electronically signed by: TREASURE EL DO 03/17/23 1315 Physical Exam Physical Exam Vital Signs Vital Signs - First Documented 03/17/23 03/17/23 01:10 01:15 Temp 39.0 Pulse 96 Resp 20 B/P (MAP) 180/69 (106) Pulse Ox 98 O2 Delivery Room Air O2 Flow Rate 2.00 Capillary Refill : Less Than 3 Seconds Height, Weight, BMI Height: 5'3.00" Weight: 180lbs. 0.0oz. 81.150444mh; 34.19 BMI Method:Stated General Appearance: WD/WN, Anxious, Chronically ill, Mild Distress, Other (jaundiced) Eyes: Bilateral Eye Normal Inspection, Bilateral Eye PERRL, Bilateral Eye EOMI, Bilateral Eye Conjunctivae Pale HEENT: PERRL/EOMI, Normal ENT Inspection, Pharynx Normal, Scleral Icterus (L), Scleral Icterus (R) Neck: Full Range of Motion, Normal Inspection, Non Tender, Supple, Carotid Bruit Respiratory: Chest Non Tender, Lungs Clear, Normal Breath Sounds, No Accessory Muscle Use, No Respiratory Distress Cardiovascular: No Edema, No Gallop, No JVD, No Murmur, Normal Peripheral Pu lses, Irregularly Irregular, Tachycardia Gastrointestinal: Normal Bowel Sounds, No Organomegaly, No Pulsatile Mass, Non Tender, Soft Back: Normal Inspection, No CVA Tenderness, No Vertebral Tenderness Extremity: Normal Capillary Refill, Normal Inspection, Normal Range of Motion, Non Tender, No Calf Tenderness, No Pedal Edema Neurologic/Psychiatric: Alert, Oriented x3, No Motor/Sensory Deficits, Normal Mood/Affect Skin: Normal Color, Warm/Dry Lymphatic: No Adenopathy A/P-Cardiology Admission Diagnosis Acute cholangitis Pneumonia Paroxysmal atrial fibrillation Palpitation Assessment/Plan Pneumonia, cholangeitis Gallstones in the common bile duct, currently n.p.o. and possible transfer for ERCP Managed by medical team Paroxysmal atrial fibrillation, back in atrial fibrillation with rapid ventricular response History of ablation done by Dr. Ewing Currently Multaq on hold, patient has been maintained on Toprol-XL 200 mg daily and Cardizem CD 240 mg daily. Currently on Cardizem drip and heparin drip in preparation for possible ERCP. Jodi has been on hold since admission Palpitations and near-syncope, NSVT- History of loop monitor implantation, in March 2017 she had 5 beats of nonsustained ventricular tachycardia. In addition she was having frequent PVCs. It was extracted in 2018 after depletion of the battery Maintained on Multaq, Toprol-XL 200 mg, Cardizem 240. Seen by Dr Ewing, did not follow-up with him recently. Cardiac MRI was negative, thallium stress test was negative. History of syncope, resolved. Continue to monitor. Coronary artery disease, history of CABG 4 in 2003 using vein graft to posterior descending, vein graft to OM, vein graft to diagonal, OROZCO to LAD, with Maze procedure. Cardiac catheterization done March 17, 2017 revealed patent OROZCO to LAD, patent vein graft to the right PDA, patent vein graft to the first obtuse marginal branch with excellent flow in the coronary system. Known occluded first diagonal artery and vein graft to the diagonal branch, did not change. 50-60% stenosis in the second obtuse marginal branch that is receiving dual supply. Non obstructive disease. Lexiscan stress test was done on December 18, 2020 showing no significant ischemia or infarction, stress score 1, SDS 1, EF 84% 2D echo was done on December 23, 2020 showing normal LV size, EF 50 to 55%, grade 2 diastolic dysfunction, mildly reduced RV function, mildly dilated right atrium, moderate mitral regurgitation, PA pressure 35 to 40 mmHg. Continue to monitor Chest pain, nonspecific etiology, reporting improvement. No further episodes were reported [id number] score is 6, yearly risk of stroke without oral anticoagulation is 9.8 percent, she is considered high risk for stroke. Had GI bleed while on Xarelto. Currently tolerating Eliquis 2.5mg BID. 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 Espinal Mild bilateral nonobstructive carotid artery stenosis, continue to monitor Polymyalgia rheumatica, management per PCP. TANNER MARSHALL MD Mar 18, 2023 08:16
[2023-03-18] MEDS: DOCUSATE SODIUM 100 MG CAPSULE PO SCH ×2 (08:45→20:07)
[2023-03-18] MEDS: SENNOSIDES 8.6 MG TABLET PO SCH ×2 (08:45→20:07)
[2023-03-18] MEDS: dilTIAZem ER 240 MG CAPSULE PO SCH (08:51)
[2023-03-18] MEDS: GABAPENTIN 300 MG CAPSULE PO SCH ×3 (08:51→20:07)
[2023-03-18] MEDS: predniSONE 1 MG TABLET PO SCH (09:08)
[2023-03-18] MEDS: dilTIAZem DRIP PRE-MIX 125 ML IV SCH ×2 (09:08→17:15)
[2023-03-18] MEDS: D5 NS 1,000 ML IV SOLN 1,000 ML IV SCH ×2 (09:26→21:27)
--- NOTE | 2023-03-18 10:18 | Progress Note ---
SAMUEL ROSE 03/18/23 1018: Subjective Date Seen by a Provider: Mar 18, 2023 Time Seen by a Provider: 09:30 Subjective/Events-last exam Ms. Matute is a 77 y/o female presenting with a 4 week history of vomiting, diarrhea, and weakness. She was seen at [facility] 2 weeks ago for similar symptoms. Her symptoms had resolved in the hospital until yesterday evening. She had 3 episodes of diarrhea and an episode of vomiting, then her son had called EMS to bring her to [facility] ER. She also reports running a fever of 101F and has some chills. She reports having florescent yellow stools a few weeks ago, but now they are dark. She does have episodes of intense itching. CT abdomen showed biliary duct dilation and distal common bile duct filling defect. She has a history of cholecystectomy, appendectomy. UA was unremarkable. Gen Surg was consulted and performed an MRCP which showed 2 filling defects in the common bile duct, consistent with choledocalithiasis. She is to be transferred to [place] for an ERCP to remove the gallstones from the common bile duct. Cardiology was consulted d/t recurrent A Fib w/ RVR, and she was placed on IV diltiazem and heparin. Ms. Matute reports feeling better today. She had a run of A fib w/ RVR overnight, but this has since resolved. She is still slightly tachycardic. She denies N/V/D, and denies any abdominal pain today. She appears jaundice. She does endorse some SOB, but denies chest pain. She was oxygenating around 90% on CPAP overnight, and was at 95% on 3L NC this morning. She endorses nasal drainage and headache, but denies cough today. Review of Systems General: No Chills, No Night Sweats HEENT: Head Aches; No Eye Pain Pulmonary: Dyspnea; No Cough, No Pleuritic Chest Pain Cardiovascular: No: Chest Pain, Palpitations, Lt Headedness Gastrointestinal: No: Nausea, Vomiting, Abdominal Pain, Diarrhea, Constipation, Hematochezia Genitourinary: No Dysuria Focused Exam Lactate Level 03/17/23 01:10: Lactic Acid Level 2.43*H 03/17/23 05:19: Lactic Acid Level 5.04*H Time of Focused Exam: 02:00 Objective Exam Last Set of Vital Signs Vital Signs Date Time Temp Pulse Resp B/P (MAP) Pulse Ox O2 Delivery O2 Flow Rate FiO2 03/18/23 09:15 118 28 110/71 (78) 92 03/18/23 08:20 Nasal Cannula 3.00 03/18/23 07:33 37.1 Capillary Refill : Less Than 3 Seconds I&O Intake and Output 03/17/23 23:59 Intake Total 3820 ml Output Total 1200 ml Balance 2620 ml Intake Oral 420 ml IV Total 3400 ml Output Urine Total 1200 ml Daily Weight Change Yes, 14-23 lbs General: Alert, Oriented X3, Cooperative, No Acute Distress HEENT: Atraumatic, EOMI Neck: Supple Lungs: Other (lower lobe crackles bilaterally) Heart: No Murmurs, Other (tachycardia) Extremities: No Cyanosis, No Edema (left ankle edema), Normal Pulses Skin: No Rashes, Other (slight jaundice) Neuro: Normal Speech Psych/Mental Status: Mental Status NL Results Lab Laboratory Tests 03/17/23 11:15: White Blood Count 17.0H, Red Blood Count 3.27L, Hemoglobin 9.9L, Hematocrit 30L, Mean Corpuscular Volume 92, Mean Corpuscular Hemoglobin 30, Mean Corpuscular Hemoglobin Concent 33, Red Cell Distribution Width 19.8H, Platelet Count 130, Mean Platelet Volume 12.1, Immature Granulocyte % (Auto) 2, Neutrophils (%) (Auto) 77H, Lymphocytes (%) (Auto) 6L, Monocytes (%) (Auto) 14H, Eosinophils (%) (Auto) 0, Basophils (%) (Auto) 0, Neutrophils # (Auto) 13.2H, Lymphocytes # (Auto) 1.0, Monocytes # (Auto) 2.4H, Eosinophils # (Auto) 0.0, Basophils # (Auto) 0.1, Immature Granulocyte # (Auto) 0.3H, Neutrophils % (Manual) 75, Lymphocytes % (Manual) 7, Monocytes % (Manual) 14, Eosinophils % (Manual) 1, Basophils % (Manual) 0, Band Neutrophils 3, Percent Immature Platelet Fraction 10.0H, Polychromasia SLIGHT, Anisocytosis MARKED, Elliptocytes SLIGHT, Prothrombin Time 17.7H, INR Comment 1.4, Sodium Level 141, Potassium Level 3.2L, Chloride Level 112H, Carbon Dioxide Level 20L, Anion Gap 9, Blood Urea Nitrogen 18, Creatinine 0.75, Estimat Glomerular Filtration Rate 81, BUN/Creatinine Ratio 24, Glucose Level 99, Calcium Level 8.3L, Corrected Calcium 8.9, Total Bilirubin 5.4H, Aspartate Amino Transf (AST/SGOT) 402H, Alanine Aminotransferase (ALT/SGPT) 292H, Alkaline Phosphatase 124, Total Protein 5.2L, Albumin 3.2 03/17/23 16:14: Glucometer 69L 03/17/23 17:08: Glucometer 92 03/17/23 20:36: Glucometer 52*L 03/17/23 22:01: Glucometer 98 03/17/23 23:15: White Blood Count 14.0H, Red Blood Count 3.35L, Hemoglobin 10.3L, Hematocrit 31L , Mean Corpuscular Volume 92, Mean Corpuscular Hemoglobin 31, Mean Corpuscular Hemoglobin Concent 33, Red Cell Distribution Width 20.0H, Platelet Count 116L, Mean Platelet Volume 11.8, Prothrombin Time 17.6H, INR Comment 1.4, Activated Partial Thromboplast Time 37H 03/18/23 03:54: White Blood Count 13.0H, Red Blood Count 3.32L, Hemoglobin 10.1L, Hematocrit 31L , Mean Corpuscular Volume 93, Mean Corpuscular Hemoglobin 30, Mean Corpuscular Hemoglobin Concent 33, Red Cell Distribution Width 19.9H, Platelet Count 114L, Mean Platelet Volume , Activated Partial Thromboplast Time 87H, Immature Granulocyte % (Auto) 2, Neutrophils (%) (Auto) 79H, Lymphocytes (%) (Auto) 8L, Monocytes (%) (Auto) 11, Eosinophils (%) (Auto) 0, Basophils (%) (Auto) 0, Neutrophils # (Auto) 10.3H, Lymphocytes # (Auto) 1.0, Monocytes # (Auto) 1.4H, Eosinophils # (Auto) 0.0, Basophils # (Auto) 0.0, Immature Granulocyte # (Auto) 0.2H, Percent Immature Platelet Fraction 10.6H, Sodium Level 140, Potassium Level 2.7L, Chloride Level 112H, Carbon Dioxide Level 19L, Anion Gap 9, Blood Urea Nitrogen 14, Creatinine 0.67, Estimat Glomerular Filtration Rate 89, BUN/Creatinine Ratio 21, Glucose Level 79, Calcium Level 7.9L, Corrected Calcium 8.8, Magnesium Level 1.3L, Total Bilirubin 5.1H, Aspartate Amino Transf (AST/SGOT) 176H, Alanine Aminotransferase (ALT/SGPT) 208H, Alkaline Phosphatase 103, Total Protein 5.1L, Albumin 2.9L 03/18/23 09:50: Microbiology 03/17/23 Blood Culture - Preliminary, Resulted Escherichia coli Assessment/Plan Assessment/Plan Assess & Plan/Chief Complaint Assessment: Ms. Matute is a 77 y/o female presenting with pneumonia and choledocalithiasis Plan: Pneumonia/Sepsis/Leukocytosis/Bacteremia -WBC 5->17->14->13 -IV cefepime -IV fluids -monitor labs Choledocalithiasis/Hyperbilirubinemia -general surgery on board -MRCP showed 2 gallstones in common bile duct -Possible transfer for ERCP -IV cefepime Recurrent A Fib w/ RVR -cardiology on board -IV diltiazem and heparin in prep for ERCP Hypokalemia -K+ 3.5->3.2->2.7 -IV K+ supplementation Clinical Quality Measures Admission Status Admission Dx Assessment: Ms. Matute is a 77 y/o female with 4 week history of diarrhea, weakness, fever Plan: Sepsis/Pneumonia -Chest XR showed lower interstitial infiltrates -lactic acid 5.04 -IV cefepime -monitor vitals Nausea/Vomiting Diarrhea -Abd CT showed bile duct dilation and distal common bile duct filling defect -consulted Gen Surg for MRCP -NPO -IV fluids Elevated Liver Function Tests -AST 601, ALT 283, Alk phos 194, PT 15.3, bili 4.6 -likely 2/2 bile duct dilation/filling defect -monitor liver function MEAGHAN SAWANT DO 03/19/23 0455: Subjective Subjective/Events-last exam Patient appears to be doing better Episode of A-fib with RVR prompting diltiazem drip and heparin drip Appreciate cardiology ERCP likely Wednesday Objective Exam General: Alert, Oriented X3, Cooperative, No Acute Distress Lungs: Clear to Auscultation, Normal Air Movement Heart: Other (tachycardia) Psych/Mental Status: Mental Status NL, Mood NL Assessment/Plan Assessment/Plan Assess & Plan/Chief Complaint ERCP tomorrow Hold oral anticoagulants Maintain heparin drip Maintain diltiazem drip Cardiology appreciated Supervisory-Addendum Brief Verification & Attestation Participated in pt care: history, MDM, physical Personally performed: exam, history, MDM, supervision of care Care discussed with: Medical Student Procedures: n/a Results interpretation: Verified all documentation Verification and Attestation of Medical Student E/M Service A medical student performed and documented this service in my presence. I reviewed and verified all information documented by the medical student and made modifications to such information, when appropriate. I personally performed the physical exam and medical decision making. Meaghan Sawant, Mar 19, 2023,04:54 SAMUEL ROSE Mar 18, 2023 10:18 MEAGHAN SAWANT DO Mar 19, 2023 04:55
--- NOTE | 2023-03-18 11:04 | Tele-ICU Progress Note ---
Subjective Date Seen by a Provider: Mar 18, 2023 Time Seen by a Provider: 11:04 Subjective/Events-last exam (Tele-ICU Physician , consultation as per request of PCP Service provided via interactive audio and video telecommunications E-CARE system to a patient admitted to ICU bed in [facility]. Available chart/ vitals / labs / Images reviewed H&P is from ER notes Patient's information available about PMH, Shx, Fhx allergy reviewed inEMR. ROS as per chart and RN report Now in ICU, hemodynamically stable Video assessment done using teleICU camera, rest of exam as per RN Discussed with RN. Hospital course: (03.17) Admitted a 77 y/o (cardiac stepdown) PNA. (03.17) AF. DILT, Heparin. Abd pain, GI consult. Chonagitis. Has stones in CBD. A/P Cholangitis and 2 gallstones in the common bile duct, bacteremia Ecoli - on cefepime - as per sx -dtones could still be removed with ERCP, but would need the biggest Sphincterotomy - so would postpone procedure to eliminate Eliquis effect A fib RVR - cardizem gtt - heparin gtt ( Eliquis on hold for possible precedures) - cards follow Hypoxia - 3 L - pulm HTN and possible pNA - monitor for VO Suspected PNA - cont abx Pulm HTN - RVSP 50 mmHg on ECHO 12/2022 - monitor for VO DM - ISS JOI - on cpap home - to cont Thrombocytopenia - monitor on Heparin Lines : peripg , (Central Line Necessity Reviewed) Taylor: 03/17 OG: Nutrition: clear Analgesia: Anxiety/ delirium VTE Prophylaxis: hep gtt Stress Ulcer Prophylaxis: ppi Plans in collaboration with bedside consultants and IM MDs. Discussed with RN to reach out if any questions or concerns A total of 25 minutes of critical care time was devoted to this patient today, required to treat and/or prevent further deterioration of critical care cond ition ( as above ) . I am remotely monitoring this patient from another state. I am unable to do the bedside exam, and history/physical and pertinent information is taken from other notes in the computer and bedside staff. . Sepsis Event Evaluation Height, Weight, BMI Height: 5'3.00" Weight: 180lbs. 0.0oz. 81.100274jh; 34.19 BMI Method:Stated Focused Exam Lactate Level 03/17/23 01:10: Lactic Acid Level 2.43*H 03/17/23 05:19: Lactic Acid Level 5.04*H Time of Focused Exam: 02:00 Exam Exam Patient acknowledged, consented, and participated in this virtual visit which was conducted using real time audio/video Vital Signs Date Time Temp Pulse Resp B/P (MAP) Pulse Ox O2 Delivery O2 Flow Rate FiO2 03/18/23 09:15 118 28 110/71 (78) 92 03/18/23 09:10 Nasal Cannula 3.00 03/18/23 09:08 138/80 03/18/23 09:00 112 17 138/80 (90) 89 03/18/23 08:45 122 24 147/69 (80) 93 03/18/23 08:45 122 24 147/69 (80) 93 03/18/23 08:34 101 03/18/23 08:30 118 20 108/76 (91) 93 03/18/23 08:20 Nasal Cannula 3.00 03/18/23 08:15 104 19 149/68 (80) 86 03/18/23 08:00 103 24 129/45 (71) 90 03/18/23 07:45 107 20 129/53 (70) 90 03/18/23 07:33 37.1 03/18/23 07:30 112 26 134/53 (76) 91 03/18/23 07:15 94 18 133/50 (92) 91 03/18/23 07:00 101 03/18/23 07:00 105 19 118/49 (88) 03/18/23 06:00 114 23 99/67 (78) 90 NIV CPAP 03/18/23 05:46 37.1 03/18/23 05:00 100 29 129/62 (84) 90 NIV CPAP 03/18/23 04:00 106 29 154/53 (86) 91 NIV CPAP 03/18/23 03:00 104 26 130/54 (79) 90 NIV CPAP 03/18/23 02:00 96 26 123/55 (77) 91 NIV CPAP 03/18/23 01:00 109 25 126/69 (88) 91 NIV CPAP 03/18/23 00:00 124 03/18/23 00:00 124 28 124/60 (81) 92 Nasal Cannula 2.50 03/17/23 23:45 124 28 125/56 (79) 88 NIV CPAP 03/17/23 23:30 110 28 132/59 (83) 90 NIV CPAP 03/17/23 23:30 110 28 132/59 (83) 90 Nasal Cannula 2.50 03/17/23 22:39 120 164/72 03/17/23 22:27 138 164/72 03/17/23 22:18 95 Nasal Cannula 2.50 03/17/23 22:15 134 22 164/72 (102) 90 NIV CPAP 03/17/23 22:00 135 28 164/72 (102) 90 Nasal Cannula 2.50 03/17/23 21:06 137 03/17/23 20:00 91 26 177/79 (111) 96 Nasal Cannula 2.50 03/17/23 20:00 95 Nasal Cannula 2.50 03/17/23 19:59 37.4 92 17 169/62 (97) 97 Nasal Cannula 2.50 03/17/23 19:00 90 27 169/62 (97) 97 Nasal Cannula 2.00 03/17/23 19:00 90 27 169/62 (97) 97 Nasal Cannula 2.50 03/17/23 18:42 89 03/17/23 16:00 36.7 80 12 159/61 (93) 98 Nasal Cannula 2.50 03/17/23 13:00 85 03/17/23 12:00 84 130/69 (89) 96 Nasal Cannula 2.00 I & O 03/18/23 06:59 Intake Total 2570 ml Output Total 1050 ml Balance 1520 ml Height & Weight Height: 5'3.00" Weight: 180lbs. 0.0oz. 81.437358pt; 34.19 BMI Method:Stated General Appearance: WD/WN, Anxious, Chronically ill, Mild Distress, Other (jaundiced) HEENT: PERRL/EOMI, Normal ENT Inspection, Pharynx Normal, Scleral Icterus (L), Scleral Icterus (R) Neck: Full Range of Motion, Normal Inspection, Non Tender, Supple, Carotid Bruit Respiratory: Chest Non Tender, Lungs Clear, Normal Breath Sounds, No Accessory Muscle Use, No Respiratory Distress Cardiovascular: No Edema, No Gallop, No JVD, No Murmur, Normal Peripheral Pulses, Irregularly Irregular, Tachycardia Capillary Refill: Less Than 3 Seconds Peripheral Pulses: 1+ Radial Pulses (R), 1+ Radial Pulses (L) Gastrointestinal: soft, no organomegaly, tenderness (diffusely), hernia (inc arcerated umbilical) Extremity: Normal Capillary Refill, Normal Inspection, Normal Range of Motion, Non Tender, No Calf Tenderness, No Pedal Edema Neurologic/Psychiatric: Alert, Oriented x3, No Motor/Sensory Deficits, Normal Mood/Affect Skin: Normal Color, Warm/Dry Lymphatic: No Adenopathy Results Lab Laboratory Tests 03/17/23 01:10 03/17/23 11:15 03/17/23 23:15 03/18/23 03:54 Assessment/Plan Assessment/Plan 1 AMBER PEREA MD Mar 18, 2023 11:04
[2023-03-18 11:51] VITALS: BP 128/62
--- NOTE | 2023-03-18 13:50 | Progress Note - Surgery ---
Subjective Time Seen by a Provider: 10:17 Subjective/Events-last exam Pt seen and examined, states she feels ok today. Tired and minimal abdominal pain, she feels better than yesterday. Tolerating clears. Review of Systems Pulmonary: No Dyspnea, No Cough Gastrointestinal: Abdominal Pain; No: Nausea, Vomiting Genitourinary: No Dysuria, No Frequency; Other (wong in place) Focused Exam Lactate Level 03/17/23 01:10: Lactic Acid Level 2.43*H 03/17/23 05:19: Lactic Acid Level 5.04*H Time of Focused Exam: 02:00 Objective Exam Vital Signs Date Time Temp Pulse Resp B/P (MAP) Pulse Ox O2 Delivery O2 Flow Rate FiO2 03/18/23 12:19 94 Nasal Cannula 2.50 03/18/23 12:00 72 33 116/52 (85) 93 Nasal Cannula 3.00 03/18/23 11:51 36.3 82 92 32 03/18/23 11:45 73 28 127/59 (99) 03/18/23 11:30 78 25 129/80 (94) 95 03/18/23 11:15 80 40 134/56 (90) 96 03/18/23 11:12 36.3 03/18/23 11:07 80 28 95 03/18/23 11:00 82 23 128/62 (98) Nasal Cannula 3.00 03/18/23 10:00 24 126/58 (76) 92 03/18/23 09:15 118 28 110/71 (78) 92 03/18/23 09:10 Nasal Cannula 3.00 03/18/23 09:08 138/80 03/18/23 09:00 112 17 138/80 (90) 89 03/18/23 08:45 122 24 147/69 (80) 93 03/18/23 08:45 122 24 147/69 (80) 93 03/18/23 08:34 101 03/18/23 08:30 118 20 108/76 (91) 93 03/18/23 08:20 Nasal Cannula 3.00 03/18/23 08:15 104 19 149/68 (80) 86 03/18/23 08:00 103 24 129/45 (71) 90 03/18/23 07:45 107 20 129/53 (70) 90 03/18/23 07:33 37.1 03/18/23 07:30 112 26 134/53 (76) 91 03/18/23 07:15 94 18 133/50 (92) 91 03/18/23 07:00 101 03/18/23 07:00 105 19 118/49 (88) 03/18/23 06:00 114 23 99/67 (78) 90 NIV CPAP 03/18/23 05:46 37.1 03/18/23 05:00 100 29 129/62 (84) 90 NIV CPAP 03/18/23 04:00 106 29 154/53 (86) 91 NIV CPAP 03/18/23 03:00 104 26 130/54 (79) 90 NIV CPAP 03/18/23 02:00 96 26 123/55 (77) 91 NIV CPAP 03/18/23 01:00 109 25 126/69 (88) 91 NIV CPAP 03/18/23 00:00 124 03/18/23 00:00 124 28 124/60 (81) 92 Nasal Cannula 2.50 03/17/23 23:45 124 28 125/56 (79) 88 NIV CPAP 03/17/23 23:30 110 28 132/59 (83) 90 NIV CPAP 03/17/23 23:30 110 28 132/59 (83) 90 Nasal Cannula 2.50 03/17/23 22:39 120 164/72 03/17/23 22:27 138 164/72 03/17/23 22:18 95 Nasal Cannula 2.50 03/17/23 22:15 134 22 164/72 (102) 90 NIV CPAP 03/17/23 22:00 135 28 164/72 (102) 90 Nasal Cannula 2.50 03/17/23 21:06 137 03/17/23 20:00 91 26 177/79 (111) 96 Nasal Cannula 2.50 03/17/23 20:00 95 Nasal Cannula 2.50 03/17/23 19:59 37.4 92 17 169/62 (97) 97 Nasal Cannula 2.50 03/17/23 19:00 90 27 169/62 (97) 97 Nasal Cannula 2.00 03/17/23 19:00 90 27 169/62 (97) 97 Nasal Cannula 2.50 03/17/23 18:42 89 03/17/23 16:00 36.7 80 12 159/61 (93) 98 Nasal Cannula 2.50 I & O 03/18/23 06:59 Intake Total 2570 ml Output Total 1050 ml Balance 1520 ml Capillary Refill : Less Than 3 Seconds General Appearance: Anxious, Chronically ill, Mild Distress HEENT: PERRL/EOMI, Pharynx Normal, Scleral Icterus (L), Scleral Icterus (R) Respiratory: Chest Non Tender, No Accessory Muscle Use, No Respiratory Distress, Decreased Breath Sounds (bases) Cardiovascular: Irregularly Irregular, Tachycardia Peripheral Pulses: 1+ Radial Pulses (R), 1+ Radial Pulses (L) Gastrointestinal: soft, no organomegaly, tenderness (diffusely), hernia (incarcerated umbilical) Extremity: No Calf Tenderness, No Pedal Edema Neurologic/Psychiatric: Alert, Oriented x3 Results Lab Laboratory Tests 03/17/23 16:14: Glucometer 69L 03/17/23 17:08: Glucometer 92 03/17/23 20:36: Glucometer 52*L 03/17/23 22:01: Glucometer 98 03/17/23 23:15: White Blood Count 14.0H, Red Blood Count 3.35L, Hemoglobin 10.3L, Hematocrit 31L , Mean Corpuscular Volume 92, Mean Corpuscular Hemoglobin 31, Mean Corpuscular Hemoglobin Concent 33, Red Cell Distribution Width 20.0H, Platelet Count 116L, Mean Platelet Volume 11.8, Prothrombin Time 17.6H, INR Comment 1.4, Activated Partial Thromboplast Time 37H 03/18/23 03:54: White Blood Count 13.0H, Red Blood Count 3.32L, Hemoglobin 10.1L, Hematocrit 31L , Mean Corpuscular Volume 93, Mean Corpuscular Hemoglobin 30, Mean Corpuscular Hemoglobin Concent 33, Red Cell Distribution Width 19.9H, Platelet Count 114L, Mean Platelet Volume , Activated Partial Thromboplast Time 87H, Immature Granulocyte % (Auto) 2, Neutrophils (%) (Auto) 79H, Lymphocytes (%) (Auto) 8L, Monocytes (%) (Auto) 11, Eosinophils (%) (Auto) 0, Basophils (%) (Auto) 0, Neutrophils # (Auto) 10.3H, Lymphocytes # (Auto) 1.0, Monocytes # (Auto) 1.4H, Eosinophils # (Auto) 0.0, Basophils # (Auto) 0.0, Immature Granulocyte # (Auto) 0.2H, Percent Immature Platelet Fraction 10.6H, Sodium Level 140, Potassium Leve l 2.7L, Chloride Level 112H, Carbon Dioxide Level 19L, Anion Gap 9, Blood Urea Nitrogen 14, Creatinine 0.67, Estimat Glomerular Filtration Rate 89, BUN/Creatinine Ratio 21, Glucose Level 79, Calcium Level 7.9L, Corrected Calcium 8.8, Magnesium Level 1.3L, Total Bilirubin 5.1H, Aspartate Amino Transf (AST/SGOT) 176H, Alanine Aminotransferase (ALT/SGPT) 208H, Alkaline Phosphatase 103, Total Protein 5.1L, Albumin 2.9L 03/18/23 09:50: Activated Partial Thromboplast Time 87H 03/18/23 10:26: Glucometer 146H Microbiology 03/17/23 Blood Culture - Preliminary, Resulted Escherichia coli 03/17/23 Urine Culture - Final, Complete NO GROWTH Assessment/Plan Assessment/Plan Assessment/Plan Pneumonia/Sepsis/Leukocytosis/Bacteremia -WBC is improving 5->17->14->13 -IV cefepime -IV fluids -monitor labs Choledocalithiasis/Hyperbilirubinemia -I spoke again with Dr. Lance today, he said would need at least 3 days off Eliquis unless it was emergent and if she continues to improve it could even be done outpt -MRCP showed 2 gallstones in common bile duct Recurrent A Fib w/ RVR -IV diltiazem Hypokalemia -K+ 3.5->3.2->2.7 -IV K+ supplementation JAE SORIA DO Mar 18, 2023 13:50
[2023-03-18] MEDS: RT-ALBUTEROL SULF 2.5 MG/3 ML PRE-MIX VIAL INH SCH ×2 (15:49→18:57)
[2023-03-18] MEDS: LORATADINE 10 MG TABLET PO SCH (20:07)
[2023-03-18] MEDS: LOSARTAN 100 MG TABLET PO SCH (20:07)
[2023-03-18] MEDS: MAGNESIUM OXIDE 400 MG TABLET PO SCH (20:07)
--- NOTE | 2023-03-18 21:19 | Tele-ICU Progress Note ---
Subjective Date Seen by a Provider: Mar 18, 2023 Time Seen by a Provider: 21:13 Subjective/Events-last exam called by RN for breathlessness Pt admitted with CXR with GGO and patchy infiltates in both lungs, Serology for Covid and flu are negative. Has 2/2 blood cultures + for E Coli, not known yet if ESBL, on IV Cefepime Does not carry Dx of COPD, Pt is wheezing and getting albuterol inhalers, Sepsis Event Evaluation Height, Weight, BMI Height: 5'3.00" Weight: 180lbs. 0.0oz. 81.480099yl; 34.19 BMI Method:Stated Focused Exam Lactate Level 03/17/23 01:10: Lactic Acid Level 2.43*H 03/17/23 05:19: Lactic Acid Level 5.04*H Time of Focused Exam: 02:00 Exam Exam Patient acknowledged, consented, and participated in this virtual visit which was conducted using real time audio/video Vital Signs Date Time Temp Pulse Resp B/P (MAP) Pulse Ox O2 Delivery O2 Flow Rate FiO2 03/18/23 20:14 37.9 Nasal Cannula 3.50 03/18/23 20:08 Nasal Cannula 3.00 03/18/23 19:54 37.9 Nasal Cannula 3.50 03/18/23 19:02 95 Nasal Cannula 3.00 03/18/23 18:55 79 03/18/23 18:00 77 25 135/47 (84) 95 Nasal Cannula 3.00 03/18/23 17:15 72 123/52 03/18/23 17:00 75 26 123/52 (80) 94 03/18/23 16:00 72 25 140/62 (88) 92 Nasal Cannula 3.00 03/18/23 15:54 Nasal Cannula 3.00 03/18/23 15:49 93 Nasal Cannula 2.50 03/18/23 15:00 71 23 130/58 (71) 95 Nasal Cannula 3.00 03/18/23 14:00 73 20 113/52 (79) 91 Nasal Cannula 3.00 03/18/23 13:00 107 03/18/23 13:00 74 26 92 Nasal Cannula 3.00 03/18/23 12:19 94 Nasal Cannula 2.50 03/18/23 12:00 72 33 116/52 (85) 93 Nasal Cannula 3.00 03/18/23 11:56 Nasal Cannula 3.00 03/18/23 11:51 36.3 82 92 32 03/18/23 11:45 73 28 127/59 (99) 03/18/23 11:30 78 25 129/80 (94) 95 03/18/23 11:15 80 40 134/56 (90) 96 03/18/23 11:12 36.3 03/18/23 11:07 80 28 95 03/18/23 11:00 82 23 128/62 (98) Nasal Cannula 3.00 03/18/23 10:00 24 126/58 (76) 92 03/18/23 09:15 118 28 110/71 (78) 92 03/18/23 09:10 Nasal Cannula 3.00 03/18/23 09:08 138/80 03/18/23 09:00 112 17 138/80 (90) 89 03/18/23 08:45 122 24 147/69 (80) 93 03/18/23 08:45 122 24 147/69 (80) 93 03/18/23 08:34 101 03/18/23 08:30 118 20 108/76 (91) 93 03/18/23 08:20 Nasal Cannula 3.00 03/18/23 08:15 104 19 149/68 (80) 86 03/18/23 08:00 103 24 129/45 (71) 90 03/18/23 07:45 107 20 129/53 (70) 90 03/18/23 07:33 37.1 03/18/23 07:30 112 26 134/53 (76) 91 03/18/23 07:15 94 18 133/50 (92) 91 03/18/23 07:00 101 03/18/23 07:00 105 19 118/49 (88) 03/18/23 06:00 114 23 99/67 (78) 90 NIV CPAP 03/18/23 05:46 37.1 03/18/23 05:00 100 29 129/62 (84) 90 NIV CPAP 03/18/23 04:00 106 29 154/53 (86) 91 NIV CPAP 03/18/23 03:00 104 26 130/54 (79) 90 NIV CPAP 03/18/23 02:00 96 26 123/55 (77) 91 NIV CPAP 03/18/23 01:00 109 25 126/69 (88) 91 NIV CPAP 03/18/23 00:00 124 03/18/23 00:00 124 28 124/60 (81) 92 Nasal Cannula 2.50 03/17/23 23:45 124 28 125/56 (79) 88 NIV CPAP 03/17/23 23:30 110 28 132/59 (83) 90 NIV CPAP 03/17/23 23:30 110 28 132/59 (83) 90 Nasal Cannula 2.50 03/17/23 22:39 120 164/72 03/17/23 22:27 138 164/72 03/17/23 22:18 95 Nasal Cannula 2.50 03/17/23 22:15 134 22 164/72 (102) 90 NIV CPAP 03/17/23 22:00 135 28 164/72 (102) 90 Nasal Cannula 2.50 I & O 03/18/23 06:59 Intake Total 2570 ml Output Total 1050 ml Balance 1520 ml Height & Weight Height: 5'3.00" Weight: 180lbs. 0.0oz. 81.091968qp; 34.19 BMI Method:Stated General Appearance: Anxious, Chronically ill, Mild Distress HEENT: PERRL/EOMI, Pharynx Normal, Scleral Icterus (L), Scleral Icterus (R) Respiratory: Chest Non Tender, No Accessory Muscle Use, No Respiratory Distress, Decreased Breath Sounds (bases) Cardiovascular: Irregularly Irregular, Tachycardia Capillary Refill: Less Than 3 Seconds Peripheral Pulses: 1+ Radial Pulses (R), 1+ Radial Pulses (L) Gastrointestinal: soft, no organomegaly, tenderness (diffusely), hernia (incarcerated umbilical) Extremity: No Calf Tenderness, No Pedal Edema Neurologic/Psychiatric: Alert, Oriented x3 Results Lab Laboratory Tests 03/17/23 01:10 03/17/23 11:15 03/17/23 23:15 03/18/23 03:54 03/18/23 16:30 Assessment/Plan Assessment/Plan called by RN for breathlessness Pt admitted with CXR with GGO and patchy infiltates in both lungs, Serology for Covid and flu are negative. 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
[2023-03-18] MEDS: HEParin 1000 UNIT/ML (10ML VIAL) FOR BOLUS IV PRN (23:38)
[2023-03-19] MEDS: D5 NS 1,000 ML IV SOLN 1,000 ML IV SCH (00:11)
[2023-03-19 05:11] LABS: BASOPHILS % (AUTO) 0 % (0-10); EOSINOPHILS % (AUTO) 0 % (0-10); HEMATOCRIT 28 % (35-52); HEMOGLOBIN 8.8 g/dL (11.5-16.0); LYMPHOCYTES # (AUTO) 0.9 10^3/uL (1.0-4.0); LYMPHOCYTES % (AUTO) 10 % (12-44); MEAN CORPUSCULAR HEMOGLOBIN 30 pg (25-34); MEAN CORPUSCULAR HGB CONC 32 g/dL (32-36); MEAN CORPUSCULAR VOLUME 94 fL (80-99); MONOCYTES # (AUTO) 0.9 10^3/uL (0.0-1.0); MONOCYTES % (AUTO) 9 % (0-12); NEUTROPHILS # (AUTO) 7.6 10^3/uL (1.8-7.8); NEUTROPHILS % (AUTO) 79 % (42-75); PLATELET COUNT 91 10^3/uL (130-400); WHITE BLOOD COUNT 9.7 10^3/uL (4.3-11.0)
[2023-03-19 05:21] LABS: ALBUMIN 2.7 GM/DL (3.2-4.5)
[2023-03-19 05:22] LABS: CALCIUM 7.8 MG/DL (8.5-10.1)
[2023-03-19 05:23] LABS: TOTAL PROTEIN 4.9 GM/DL (6.4-8.2)
[2023-03-19 05:25] LABS: BILIRUBIN,TOTAL 2.7 MG/DL (0.1-1.0)
[2023-03-19 05:27] LABS: CREATININE SERUM 0.75 MG/DL (0.60-1.30)
[2023-03-19] MEDS: POTASSIUM CL 10MEQ/50ML IVPB 50 ML IV SCH (05:32)
[2023-03-19] MEDS: POTASSIUM CHLORIDE 20 MEQ TABLET PO SCH (05:32)
[2023-03-19] MEDS: MAGNESIUM 1 GM/100 ML IVPB 100 ML IV SCH (05:54)
[2023-03-19] MEDS: CEFEPIME 1,000 MG/NS 50 ML IVPB IV SCH ×6 (06:05→21:01)
[2023-03-19] MEDS: PANTOPRAZOLE 40 MG TABLET PO SCH (06:06)
[2023-03-19] MEDS: inSUlin ASPART 1 UNIT/0.01 ML (PER UNIT) SC SCH ×4 (06:06→21:00)
[2023-03-19] MEDS: RT-ALBUTEROL SULF 2.5 MG/3 ML PRE-MIX VIAL INH SCH ×3 (07:10→15:21)
[2023-03-19] MEDS: HEParin DRIP 25000 UNIT/500ML 500 ML IV SCH (08:18)
[2023-03-19] MEDS: DOCUSATE SODIUM 100 MG CAPSULE PO SCH ×2 (08:21→21:01)
[2023-03-19] MEDS: predniSONE 1 MG TABLET PO SCH (08:21)
[2023-03-19] MEDS: GABAPENTIN 300 MG CAPSULE PO SCH ×3 (08:21→21:01)
[2023-03-19] MEDS: SENNOSIDES 8.6 MG TABLET PO SCH ×2 (08:21→21:01)
[2023-03-19] MEDS: dilTIAZem ER 240 MG CAPSULE PO SCH (08:21)
--- NOTE | 2023-03-19 10:11 | Progress Note ---
SAMUEL ROSE 03/19/23 1011: Subjective Date Seen by a Provider: Mar 19, 2023 Time Seen by a Provider: 09:15 Subjective/Events-last exam Ms. Matute was found sleeping in bed this morning. She reporting increased SOB today. Her O2 sat was in the low 90s overnight but currently 94%. She also stat es that her CPAP was not working overnight and is concerned about getting the settings corrected before going to [facility] for ERCP. She also reports cough and wheezing, but denies coughing up any sputum. She denies dizziness, headache, N/V/D. She has a wong cath in place. She denies abdominal pain today. Review of Systems General: No Chills, No Night Sweats HEENT: No Head Aches, No Eye Pain Pulmonary: Dyspnea, Cough Cardiovascular: No: Chest Pain, Palpitations Gastrointestinal: No: Nausea, Vomiting, Abdominal Pain, Diarrhea Genitourinary: No Dysuria Musculoskeletal: No: neck pain, arm pain, back pain, leg pain Neurological: No: Numbness Focused Exam Lactate Level 03/17/23 01:10: Lactic Acid Level 2.43*H 03/17/23 05:19: Lactic Acid Level 5.04*H Time of Focused Exam: 02:00 Objective Exam Last Set of Vital Signs Vital Signs Date Time Temp Pulse Resp B/P (MAP) Pulse Ox O2 Delivery O2 Flow Rate FiO2 03/19/23 09:00 98 24 162/59 (87) 94 Nasal Cannula 4.00 03/19/23 04:00 37.0 03/18/23 22:30 28 Capillary Refill : Less Than 3 Seconds I&O Intake and Output 03/18/23 23:59 Intake Total 4100 ml Output Total 900 ml Balance 3200 ml Intake Oral 1450 ml IV Total 2650 ml Output Urine Total 900 ml General: Alert, Oriented X3, Cooperative, Mild Distress HEENT: Atraumatic, EOMI, Mucous Memb Moist/[place] Neck: Supple Lungs: Other (Lower left lobe crackles, wheezing throughout) Heart: Regular Rate, No Murmurs Abdomen: Normal Bowel Sounds, Soft, No Tenderness Extremities: No Cyanosis, Normal Pulses Skin: No Rashes, Other (slight jaundice) Neuro: Normal Speech Psych/Mental Status: Mental Status NL Results Lab Laboratory Tests 03/18/23 10:26: Glucometer 146H 03/18/23 15:48: Glucometer 176H 03/18/23 16:30: Activated Partial Thromboplast Time 62H, Potassium Level 3.4L 03/18/23 20:43: Glucometer 207H 03/18/23 22:55: Activated Partial Thromboplast Time 45H 03/19/23 04:51: Activated Partial Thromboplast Time 60H, White Blood Count 9.7, Red Blood Count 2.95L, Hemoglobin 8.8L, Hematocrit 28L, Mean Corpuscular Volume 94, Mean Corpuscular Hemoglobin 30, Mean Corpuscular Hemoglobin Concent 32, Red Cell Distribution Width 20.2H, Platelet Count 91L, Mean Platelet Volume , Immature Granulocyte % (Auto) 2, Neutrophils (%) (Auto) 79H, Lymphocytes (%) (Auto) 10L, Monocytes (%) (Auto) 9, Eosinophils (%) (Auto) 0, Basophils (%) (Auto) 0, Neutrophils # (Auto) 7.6, Lymphocytes # (Auto) 0.9L, Monocytes # (Auto) 0.9, Eosinophils # (Auto) 0.0, Basophils # (Auto) 0.0, Immature Granulocyte # (Auto) 0.2H, Percent Immature Platelet Fraction 10.7H, Sodium Level 134L, Potassium Level 4.0, Chloride Level 110H, Carbon Dioxide Level 20L, Anion Gap 4L, Blood Urea Nitrogen 15, Creatinine 0.75, Estimat Glomerular Filtration Rate 81, BUN/Creatinine Ratio 20, Glucose Level 160H, Calcium Level 7.8L, Corrected Calcium 8.8, Magnesium Level 2.4, Total Bilirubin 2.7H, Aspartate Amino Transf (AST/SGOT) 43H, Alanine Aminotransferase (ALT/SGPT) 125H, Alkaline Phosphatase 88, Total Protein 4.9L, Albumin 2.7L Microbiology 03/17/23 Blood Culture - Preliminary, Resulted Escherichia coli 03/17/23 Urine Culture - Final, Complete NO GROWTH Assessment/Plan Assessment/Plan Assess & Plan/Chief Complaint Assessment: Ms. Matute is a 77 y/o female presenting with pneumonia and choledocalithiasis Plan: Pneumonia/Sepsis/Leukocytosis/Bacteremia -WBC 5->17->14->13->9 -E coli bacteremia -waiting on susceptibility -IV cefepime -IV fluids -monitor labs -IV lasix for edema Choledocalithiasis/Hyperbilirubinemia -general surgery on board -MRCP showed 2 gallstones in common bile duct -Possible transfer to [place] for ERCP after off Eliquis 3 days -IV cefepime -liver enzymes/bilirubin trending down Recurrent A Fib w/ RVR -cardiology on board -IV diltiazem and heparin in prep for ERCP -d/c IV diltiazem and heparin -start oral diltiazem and lovenox Hypokalemia -K+ 3.5->3.2->2.7->4 -resolved transfer to fourth floor Clinical Quality Measures Admission Status Admission Dx Assessment: Ms. Matute is a 77 y/o female with 4 week history of diarrhea, weakness, fever Plan: Sepsis/Pneumonia -Chest XR showed lower interstitial infiltrates -lactic acid 5.04 -IV cefepime -monitor vitals Nausea/Vomiting Diarrhea -Abd CT showed bile duct dilation and distal common bile duct filling defect -consulted Gen Surg for MRCP -NPO -IV fluids Elevated Liver Function Tests -AST 601, ALT 283, Alk phos 194, PT 15.3, bili 4.6 -likely 2/2 bile duct dilation/filling defect -monitor liver function MEAGHAN MASTERSON DO 03/20/23 0605: Subjective Subjective/Events-last exam Patient much improved We will move down to fourth floor On Wednesday we will reach out to gastroenterology for outpatient ERCP Continue on antibiotics A-fib controlled Lovenox injection will be maintained Review of Systems General: Fatigue, Malaise Objective Exam General: Alert, Oriented X3, Cooperative, No Acute Distress Lungs: Clear to Auscultation, Normal Air Movement Heart: Regular Rate, Normal S1, Normal S2, No Murmurs Psych/Mental Status: Mental Status NL, Mood NL Assessment/Plan Assessment/Plan Assess & Plan/Chief Complaint Move to fourth floor 1 dose of Lasix 40 Mg IV x1 Supervisory-Addendum Brief Verification & Attestation Participated in pt care: history, MDM, physical Personally performed: exam, history, MDM, supervision of care Care discussed with: Medical Student Procedures: n/a Results interpretation: Verified all documentation Verification and Attestation of Medical Student E/M Service A medical student performed and documented this service in my presence. I reviewed and verified all information documented by the medical student and made modifications to such information, when appropriate. I personally performed the physical exam and medical decision making. Meaghan Masterson, Mar 20, 2023,06:04 SAMUEL ROSE Mar 19, 2023 10:11 MEAGHAN MASTERSON DO Mar 20, 2023 06:05
[2023-03-19] MEDS: FLUTICASONE/VILANTEROL 100/25 MCG (14 DOSES) IH SCH (10:46)
[2023-03-19] MEDS ORDERED: FUROSEMIDE INJECTION 40 MG/4 ML VIAL IVP ONE (11:00)
--- NOTE | 2023-03-19 11:38 | Diagnostic Imaging Report ---
INDICATION: Hypoxia. COMPARISON: 03/17/2023. FINDINGS: A right PICC line is at the cavoatrial junction. There is cardiomegaly, vascular congestion, and perihilar opacities, edema versus pneumonia, which have increased. There is also likely increased right pleural effusion. IMPRESSION: Some increased congestion and likely edema with probable right pleural effusion. PICC line tip at the cavoatrial junction. Dictated by: Dictated on workstation # [id number]
--- NOTE | 2023-03-19 11:49 | Progress Note - Surgery ---
Subjective Time Seen by a Provider: 10:51 Subjective/Events-last exam Pt seen and examined, she is sitting up in chair. She denies abdominal pain, but states she is still having trouble breathing. Review of Systems General: Fatigue, Malaise Pulmonary: Dyspnea; No Cough Cardiovascular: Palpitations; No: Chest Pain Gastrointestinal: No: Nausea, Vomiting, Abdominal Pain Focused Exam Lactate Level 03/17/23 01:10: Lactic Acid Level 2.43*H 03/17/23 05:19: Lactic Acid Level 5.04*H Time of Focused Exam: 02:00 Objective Exam Vital Signs Date Time Temp Pulse Resp B/P (MAP) Pulse Ox O2 Delivery O2 Flow Rate FiO2 03/19/23 11:00 92 7 96 Nasal Cannula 4.00 03/19/23 10:46 96 Nasal Cannula 4.00 03/19/23 10:00 96 19 152/72 (86) 93 Nasal Cannula 4.00 03/19/23 09:00 98 24 162/59 (87) 94 Nasal Cannula 4.00 03/19/23 08:00 101 18 167/65 (89) 91 Nasal Cannula 4.00 03/19/23 07:35 Nasal Cannula 3.00 03/19/23 07:11 91 Nasal Cannula 4.00 03/19/23 07:00 96 23 167/58 (95) 92 Nasal Cannula 4.00 03/19/23 07:00 96 03/19/23 06:00 90 24 165/58 (93) 90 Nasal Cannula 4.00 03/19/23 05:34 Nasal Cannula 4.00 03/19/23 05:00 92 28 141/46 (77) 92 NIV CPAP 3.00 03/19/23 04:48 NIV CPAP 3.00 03/19/23 04:00 92 24 142/47 (78) 90 NIV CPAP 3.00 03/19/23 04:00 37.0 03/19/23 03:00 104 26 130/54 (79) 90 NIV CPAP 3.00 03/19/23 02:00 96 26 123/55 (77) 91 NIV CPAP 3.00 03/19/23 01:00 88 21 136/63 (87) 97 NIV CPAP 3.00 03/19/23 00:30 NIV CPAP 3.00 03/19/23 00:04 87 03/19/23 00:00 89 28 137/57 (83) 95 NIV CPAP 3.00 03/19/23 00:00 37.1 03/18/23 23:00 82 30 126/53 (77) 92 NIV CPAP 3.00 03/18/23 22:30 93 NIV CPAP 2.00 28 03/18/23 22:00 81 22 131/51 (77) 95 Nasal Cannula 3.50 03/18/23 21:00 81 28 151/59 (89) 95 Nasal Cannula 3.50 03/18/23 20:14 37.9 Nasal Cannula 3.50 03/18/23 20:08 Nasal Cannula 3.00 03/18/23 20:00 83 21 152/67 (95) 94 Nasal Cannula 3.50 03/18/23 19:54 37.9 Nasal Cannula 3.50 03/18/23 19:02 95 Nasal Cannula 3.00 03/18/23 19:00 78 11 143/35 (71) 95 Nasal Cannula 3.50 03/18/23 18:55 79 03/18/23 18:00 77 25 135/47 (84) 95 Nasal Cannula 3.00 03/18/23 17:15 72 123/52 03/18/23 17:00 75 26 123/52 (80) 94 03/18/23 16:00 72 25 140/62 (88) 92 Nasal Cannula 3.00 03/18/23 15:54 Nasal Cannula 3.00 03/18/23 15:49 93 Nasal Cannula 2.50 03/18/23 15:00 71 23 130/58 (71) 95 Nasal Cannula 3.00 03/18/23 14:00 73 20 113/52 (79) 91 Nasal Cannula 3.00 03/18/23 13:00 107 03/18/23 13:00 74 26 92 Nasal Cannula 3.00 03/18/23 12:19 94 Nasal Cannula 2.50 03/18/23 12:00 72 33 116/52 (85) 93 Nasal Cannula 3.00 03/18/23 11:56 Nasal Cannula 3.00 03/18/23 11:51 36.3 82 92 32 03/18/23 11:45 73 28 127/59 (99) I & O 03/19/23 06:59 Intake Total 4150 ml Output Total 850 ml Balance 3300 ml Capillary Refill : Less Than 3 Seconds General Appearance: No Apparent Distress, Anxious, Chronically ill HEENT: PERRL/EOMI, Pharynx Normal Respiratory: Chest Non Tender, No Accessory Muscle Use, No Respiratory Distress, Decreased Breath Sounds (bases) Cardiovascular: Regular Rate, Rhythm, Systolic Murmur Peripheral Pulses: 1+ Radial Pulses (R), 1+ Radial Pulses (L) Gastrointestinal: soft, no organomegaly, tenderness (with deep palpation), hernia (incarcerated umbilical) Extremity: No Calf Tenderness, No Pedal Edema Neurologic/Psychiatric: Alert, Oriented x3 Results Lab Laboratory Tests 03/18/23 15:48: Glucometer 176H 03/18/23 16:30: Activated Partial Thromboplast Time 62H, Potassium Level 3.4L 03/18/23 20:43: Glucometer 207H 03/18/23 22:55: Activated Partial Thromboplast Time 45H 03/19/23 04:51: White Blood Count 9.7, Red Blood Count 2.95L, Hemoglobin 8.8L, Hematocrit 28L, Mean Corpuscular Volume 94, Mean Corpuscular Hemoglobin 30, Mean Corpuscular Hemoglobin Concent 32, Red Cell Distribution Width 20.2H, Platelet Count 91L, Mean Platelet Volume , Immature Granulocyte % (Auto) 2, Neutrophils (%) (Auto) 79H, Lymphocytes (%) (Auto) 10L, Monocytes (%) (Auto) 9, Eosinophils (%) (Auto) 0, Basophils (%) (Auto) 0, Neutrophils # (Auto) 7.6, Lymphocytes # (Auto) 0.9L, Monocytes # (Auto) 0.9, Eosinophils # (Auto) 0.0, Basophils # (Auto) 0.0, Immature Granulocyte # (Auto) 0.2H, Percent Immature Platelet Fraction 10.7H, Activated Partial Thromboplast Time 60H, Sodium Level 134L, Potassium Level 4.0, Chloride Level 110H, Carbon Dioxide Level 20L, Anion Gap 4L, Blood Urea Nitrogen 15, Creatinine 0.75, Estimat Glomerular Filtration Rate 81, BUN/Creatinine Ratio 20, Glucose Level 160H, Calcium Level 7.8L, Corrected Calcium 8.8, Magnesium Level 2.4, Total Bilirubin 2.7H, Aspartate Amino Transf (AST/SGOT) 43H, Alanine Aminotransferase (ALT/SGPT) 125H, Alkaline Phosphatase 88, Total Protein 4.9L, Albumin 2.7L 03/19/23 10:28: Glucometer 184H Microbiology 03/17/23 Blood Culture - Preliminary, Resulted Escherichia coli 03/17/23 Urine Culture - Final, Complete NO GROWTH Assessment/Plan Assessment/Plan Assessment/Plan Pneumonia/Sepsis/Leukocytosis/Bacteremia - continue IV ABX Choledocalithiasis/Hyperbilirubinemia - Pt is improving, Bilirubin coming down, at this point it is probably best to do this as an outpt. Dr. Lance was ok with this and obviously can do it sooner if anything changes. She will need to be off blood thinners. Recurrent A Fib w/ RVR - she is in and out Hypokalemia -resolved JAE SORIA DO Mar 19, 2023 11:49
--- NOTE | 2023-03-19 12:23 | Cardiology Progress Note ---
Subjective Date Seen by Provider: Mar 19, 2023 Time Seen by Provider: 12:22 Subjective/Events-last exam Patient was seen at bedside sitting comfortably, still having some shortness of breath Focused Exam Lactate Level 03/17/23 01:10: Lactic Acid Level 2.43*H 03/17/23 05:19: Lactic Acid Level 5.04*H Time of Focused Exam: 02:00 Objective-Cardiology Exam Last Set of Vital Signs Vital Signs 03/18/23 03/19/23 03/19/23 03/19/23 22:30 10:00 11:00 11:50 Temp 36.9 Pulse 92 Resp 7 B/P (MAP) 152/72 (86) Pulse Ox 96 O2 Delivery OxyMask O2 Flow Rate 4.00 FiO2 28 I&O Intake and Output 03/18/23 23:59 Intake Total 4100 ml Output Total 900 ml Balance 3200 ml Intake Oral 1450 ml IV Total 2650 ml Output Urine Total 900 ml General: Alert, Oriented X3, Cooperative, Mild Distress HEENT: Atraumatic, EOMI, Mucous Memb Moist/[place] Neck: Supple Lungs: Other (Lower left lobe crackles, wheezing throughout) Heart: Normal S1, Normal S2, No Murmurs, Other (Atrial fibrillation) Abdomen: Normal Bowel Sounds, Soft, No Tenderness Extremities: No Cyanosis, Normal Pulses Skin: No Rashes, Other (slight jaundice) Neuro: Normal Speech Psych/Mental Status: Mental Status NL Results Lab Laboratory Tests 03/18/23 16:30 03/19/23 04:51 A/P-Cardiology Admission Diagnosis Acute cholangitis Pneumonia Paroxysmal atrial fibrillation Palpitation Assessment/Plan Pneumonia, cholangeitis Gallstones in the common bile duct, currently n.p.o. and possible transfer for ERCP Managed by medical team Paroxysmal atrial fibrillation, back in atrial fibrillation with rapid ventricul ar response History of ablation done by Dr. Ewing Currently Multaq on hold, patient has been maintained on Toprol-XL 200 mg daily and Cardizem CD 240 mg daily. Currently on Cardizem drip and heparin drip in preparation for possible ERCP. Eliquis has been on hold since admission Palpitations and near-syncope, NSVT- History of loop monitor implantation, in March 2017 she had 5 beats of nonsustained ventricular tachycardia. In addition she was having frequent PVCs. It was extracted in 2018 after depletion of the battery Maintained on Multaq, Toprol-XL 200 mg, Cardizem 240. Seen by Dr Ewing, did not follow-up with him recently. Cardiac MRI was negative, thallium stress test was negative. History of syncope, resolved. Continue to monitor. Coronary artery disease, history of CABG 4 in 2003 using vein graft to posterior descending, vein graft to OM, vein graft to diagonal, OROZCO to LAD, with Maze procedure. Cardiac catheterization done March 17, 2017 revealed patent OROZCO to LAD, pat ent vein graft to the right PDA, patent vein graft to the first obtuse marginal branch with excellent flow in the coronary system. Known occluded first diagonal artery and vein graft to the diagonal branch, did not change. 50-60% stenosis in the second obtuse marginal branch that is receiving dual supply. Nonobstructive disease. Lexiscan stress test was done on December 18, 2020 showing no significant ischemia or infarction, stress score 1, SDS 1, EF 84% 2D echo was done on December 23, 2020 showing normal LV size, EF 50 to 55%, grade 2 diastolic dysfunction, mildly reduced RV function, mildly dilated right atrium, moderate mitral regurgitation, PA pressure 35 to 40 mmHg. Continue to monitor Chest pain, nonspecific etiology, reporting improvement. No further episodes were reported [id number] score is 6, yearly risk of stroke without oral anticoagulation is 9.8 percent, she is considered high risk for stroke. Had GI bleed while on Xarelto. Currently tolerating Eliquis 2.5mg BID. 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 Espinal Mild bilateral nonobstructive carotid artery stenosis, continue to monitor Polymyalgia rheumatica, management per PCP. TANNER MARSHALL MD Mar 19, 2023 12:22
[2023-03-19] MEDS ORDERED: ENOXAPARIN 100 MG/1 ML SYRINGE SC SCH (12:30)
--- NOTE | 2023-03-19 13:57 | Physical Therapy Evaluation ---
PT Evaluation-General Medical Diagnosis Admission Date Mar 17, 2023 at 03:28 Medical Diagnosis: sepsis Onset Date: Mar 17, 2023 Therapy Diagnosis Therapy Diagnosis: debility Height/Weight Height (Feet): 5 Height (Inches): 3.00 Weight (Pounds): 180 Weight (Ounces): 0.0 Precautions Precautions/Isolations: Fall Prevention, Standard Precautions Referral Physician: Jese Reason for Referral: Evaluation/Treatment Medical History Pertinent Medical History: CABG, CAD, DM, HTN, Renal Insufficiency, Rheumatoid Arthritis Current History ER secondary to fever, diarrhea and weakness Reviewed History: Yes Social History Home: Single Level Current Living Status: Alone Prior Prior Level of Function SCALE: Activities may be completed with or without assistive devices. 7-Gxoevnwxii-kknscva completes the activity by him/herself with no assistance from a helper. 5-Set-up or Clean-up Assistance-helper sets up or cleans up; patient completes activity. [place] assists only prior to or following the activity. 4-Supervision or Touching Assistance-helper provides verbal cues and/or touching/steadying and/or contact guard assistance as patient completes activity. Assistance may be provided throughout the activity or intermittently. 3-Partial/Moderate Assistance-helper does LESS THAN HALF the effort. Olga lifts, holds or supports trunk or limbs, but provides less than half the effort. 2-Substantial/Maximal Assistance-helper does MORE THAN HALF the effort. Olga lifts or holds trunk or limbs and provides more than half the effort. 5-Klqvwaujy-ohmumu does ALL the effort. Patient does none of the effort to complete the activity. Or, the assistance of 2 or more helpers is required for the patient to complete the activity. If activity was not attempted, code reason: 7-Patient Refused. 9-Not Applicable-not attempted and the patient did not perform the activity before the current illness, exacerbation or injury. 10-Not Attempted due to Environmental Limitations-(lack of equipment, weather restraints, etc.). 88-Not Attempted due to Medical Conditions or Safety Concerns. Bed Mobility: 6 Transfers (B,C,W/C): 6 Gait: 6 Stairs: 6 Indoor Mobility (Ambulation): Independent Stairs: Independent Prior Devices Use: Walker (PRN) PT Evaluation-Current Subjective Patient agrees to PT. Objective Patient Orientation: Normal For Age Attachments: Oxygen, Taylor Catheter ROM/Strength ROM Lower Extremities bilateral LE WFL Strength Lower Extremities 4/5 grossly bilateral LE all planes Integumentary/Posture Bladder Incontinence: Taylor Cath Posture WFL Neuromuscular (Tone, Coordination, Reflexes) grossly intact Sensory Vision: Functional Hearing: Functional Transfers Lying to Sitting/Side of Bed(Q: 6 Sit to Stand (QC): 6 Chair/Cum-xw-Lisgp Xfer(QC): 6 Gait Mode of Locomotion: Walk Anticipated Mode of Locomotion: Walk Walk 10 feet (QC): 6 Walk 50 ft with 2 Turns(QC): 6 Walk 150 ft (QC): 6 Distance: 350' Gait Assistive Device: FWW Comments/Gait Description safe and functional with no deviation Balance Sitting Static: Normal Sitting Dynamic: Normal Standing Static: Normal Standing Dynamic: Normal Assessment/Needs Patient is currently at independent LOF with all gross motor skills safely and does not require skilled PT intervention at this time. Rehab Potential: Fair PT Plan Treatment/Plan Treatment Plan: Discontinue PT Treatment Duration: Mar 19, 2023 Frequency: 1 time per week Estimated Hrs Per Day: .25 hour per day Patient and/or Family Agrees t: Yes Time Time In: 1333 Time Out: 1347 DATE: Mar 19, 2023 Total Billed Treatment Time: 14 Total Billed Treatment 1 visit EVMod 14 min JENNIFER MATHEWS PT Mar 19, 2023 13:56
[2023-03-19] MEDS: ENOXAPARIN 80 MG/0.8 ML SYRINGE SC SCH (14:06)
--- NOTE | 2023-03-19 14:44 | Occupational Therapy Eval ---
OT Evaluation-General/PLF Medical Diagnosis Admission Date Mar 17, 2023 at 03:28 Medical Diagnosis: sepsis Onset Date: Mar 17, 2023 Therapy Diagnosis Therapy Diagnosis: weakness Height/Weight Height (Feet): 5 Height (Inches): 3.00 Weight (Pounds): 180 Weight (Ounces): 0.0 Precautions Precautions/Isolations: Fall Prevention, Standard Precautions Referral Physician: Jese Referral Reason: Evaluation/Treatment Medical History Pertinent Medical History: CABG, CAD, DM, HTN, Renal Insufficiency, Rheumatoid Arthritis Social History Home: Single Level Current Living Status: Alone ADL-Prior Level of Function SCALE: Activities may be completed with or without assistive devices. 3-Rropefwlac-upnjvdy completes the activity by him/herself with no assistance from a helper. 5-Set-up or Clean-up Assistance-helper sets up or cleans up; patient completes activity. [place] assists only prior to or following the activity. 4-Supervision or Touching Assistance-helper provides verbal cues and/or touching/steadying and/or contact guard assistance as patient completes activity. Assistance may be provided throughout the activity or intermittently. 3-Partial/Moderate Assistance-helper does LESS THAN HALF the effort. [place] lifts, holds or supports trunk or limbs, but provides less than half the effort. 2-Substantial/Maximal Assistance-helper does MORE THAN HALF the effort. [place] lifts or holds trunk or limbs and provides more than half the effort. 6-Qqpmnexyq-sncloi does ALL the effort. Patient does none of the effort to complete the activity. Or, the assistance of 2 or more helpers is required for the patient to complete the activity. If activity was not attempted, code reason: 7-Patient Refused. 9-Not Applicable-not attempted and the patient did not perform the activity before the current illness, exacerbation or injury. 10-Not Attempted due to Environmental Limitations-(lack of equipment, weather restraints, etc.). 88-Not Attempted due to Medical Conditions or Safety Concerns. Self Care: Independent Functional Cognition: Independent DME/Equipment: Grab Bars Drive Self: Yes OT Current Status Subjective Agreeable to OT Pain Numeric Pain Scale: 4 Location Body Site: Generalized Mental Status/Objective Patient Orientation: Person, Place, Time, Situation Current Hand Dominance: Right Upper Extremity ROM BUE ROM WFLS Upper Extremity Coordination WFLs Upper Extremity Sensation INTACT Upper Extremity Strength intact 4/5 ADL-Treatment Eating (QC): 6 Oral Hygiene (QC): 5 Shower/Bathe Self (QC): 7 Upper Body Dressing (QC): 5 Lower Body Dressing (QC): 5 On/Off Footwear (QC): 5 Toileting Hygiene (QC): 5 Education OT Patient Education: Correct positioning, Progress toward Goal/Update tx plan, Purpose of tx/functional activities, Reviewed precautions, Rehab process, Safety issues, Transfer techniques Teaching Recipient: Patient Teaching Methods: Demonstration, Discussion Response to Teaching: Verbalize Understanding OT Family Practice Nurse Practitioner Goals Assisted Goals 1=Demonstrate adherence to instructed precautions during ADL tasks. 2=Patient will verbalize/demonstrate understanding of assistive devices/modifications for ADL. 3=Patient will improve strength/tolerance for activity to enable patient to perform ADL's. OT Education/Plan Problem List/Assessment Assessment: No Skilled OT Needs ID'd Discharge Recommendations Plan/Recommendations: Discontinue OT Treatment Plan/Plan of Care Patient would benefit from OT for education, treatment and training to promote independence in ADL's, mobility, safety and/or upper extremity function for ADL's. Plan of Care: OTHER (EVAL ONLY) Treatment Duration: Mar 19, 2023 Frequency: 1 time per week Estimated Hrs Per Day: .25 hour per day Agreement: Yes Rehab Potential: Fair Time Start Time: 14:00 Stop Time: 14:12 DATE: Mar 19, 2023 Total Time Billed (hr/min): 12 Billed Treatment Time EVL 12 min CHERISE RAPHAEL OT Mar 19, 2023 14:44
[2023-03-19 20:53] VITALS: BP 148/67
[2023-03-19] MEDS: LOSARTAN 100 MG TABLET PO SCH (21:01)
[2023-03-19] MEDS: LORATADINE 10 MG TABLET PO SCH (21:01)
[2023-03-19] MEDS: MAGNESIUM OXIDE 400 MG TABLET PO SCH (21:01)
[2023-03-19 23:30] VITALS: BP 136/71
[2023-03-20] MEDS: ENOXAPARIN 80 MG/0.8 ML SYRINGE SC SCH ×3 (00:40→23:30)
[2023-03-20 03:46] VITALS: BP 156/53
[2023-03-20 05:33] LABS: HEMATOCRIT 28 % (35-52)
[2023-03-20] MEDS: PANTOPRAZOLE 40 MG TABLET PO SCH (05:33)
[2023-03-20] MEDS: CEFEPIME 1,000 MG/NS 50 ML IVPB IV SCH ×2 (05:33)
[2023-03-20 05:34] LABS: BASOPHILS % (AUTO) 0 % (0-10); EOSINOPHILS # (AUTO) 0.1 10^3/uL (0.0-0.3); EOSINOPHILS % (AUTO) 2 % (0-10); HEMOGLOBIN 9.1 g/dL (11.5-16.0); LYMPHOCYTES # (AUTO) 0.7 10^3/uL (1.0-4.0); LYMPHOCYTES % (AUTO) 14 % (12-44); MEAN CORPUSCULAR HEMOGLOBIN 30 pg (25-34); MEAN CORPUSCULAR HGB CONC 33 g/dL (32-36); MEAN CORPUSCULAR VOLUME 92 fL (80-99); MONOCYTES # (AUTO) 0.5 10^3/uL (0.0-1.0); MONOCYTES % (AUTO) 10 % (0-12); NEUTROPHILS # (AUTO) 3.6 10^3/uL (1.8-7.8); NEUTROPHILS % (AUTO) 73 % (42-75); PLATELET COUNT 84 10^3/uL (130-400); WHITE BLOOD COUNT 4.9 10^3/uL (4.3-11.0)
[2023-03-20 05:41] LABS: ALBUMIN 2.7 GM/DL (3.2-4.5); POTASSIUM 3.5 MMOL/L (3.6-5.0)
[2023-03-20 05:43] LABS: CALCIUM 8.7 MG/DL (8.5-10.1)
[2023-03-20 05:44] LABS: TOTAL PROTEIN 5.1 GM/DL (6.4-8.2)
[2023-03-20] MEDS: inSUlin ASPART 1 UNIT/0.01 ML (PER UNIT) SC SCH ×4 (05:45→20:13)
[2023-03-20 05:46] LABS: BILIRUBIN,TOTAL 1.8 MG/DL (0.1-1.0)
[2023-03-20 05:48] LABS: CREATININE SERUM 0.62 MG/DL (0.60-1.30)
[2023-03-20] MEDS: FLUTICASONE/VILANTEROL 100/25 MCG (14 DOSES) IH SCH (06:23)
[2023-03-20] MEDS: RT-ALBUTEROL SULF 2.5 MG/3 ML PRE-MIX VIAL INH SCH ×4 (06:23→18:56)
[2023-03-20 07:15] VITALS: BP 143/64
[2023-03-20] MEDS: SENNOSIDES 8.6 MG TABLET PO SCH ×2 (09:19→20:12)
[2023-03-20] MEDS: DOCUSATE SODIUM 100 MG CAPSULE PO SCH ×2 (09:19→20:12)
[2023-03-20] MEDS: dilTIAZem ER 240 MG CAPSULE PO SCH (09:19)
[2023-03-20] MEDS: predniSONE 1 MG TABLET PO SCH (09:19)
[2023-03-20] MEDS: GABAPENTIN 300 MG CAPSULE PO SCH ×3 (09:19→20:12)
[2023-03-20 11:00] VITALS: BP 163/71
[2023-03-20] MEDS: hydrALAZINE INJECTION 20 MG/ML VIAL IV PRN (11:26)
--- NOTE | 2023-03-20 11:40 | Progress Note ---
Subjective Date Seen by a Provider: Mar 20, 2023 Time Seen by a Provider: 11:00 Subjective/Events-last exam Much improved Labs stable ERCP needs done but as outpatient Tolerating food No pain Focused Exam Time of Focused Exam: 02:00 Objective Exam Last Set of Vital Signs Vital Signs Date Time Temp Pulse Resp B/P (MAP) Pulse Ox O2 Delivery O2 Flow Rate FiO2 03/20/23 11:00 36.5 98 18 163/71 (101) 98 Nasal Cannula 2.00 03/18/23 22:30 28 Capillary Refill : Less Than 3 Seconds I&O Intake and Output 03/19/23 23:59 Intake Total 1650 ml Output Total 3150 ml Balance -1500 ml Intake Oral 1600 ml IV Total 50 ml Output Urine Total 3150 ml General: Alert, Oriented X3, Cooperative, No Acute Distress Lungs: Clear to Auscultation, Normal Air Movement Psych/Mental Status: Mental Status NL, Mood NL Results Lab Laboratory Tests 03/19/23 12:15: Activated Partial Thromboplast Time 50H 03/19/23 16:10: Glucometer 189H 03/19/23 20:09: Glucometer 155H 03/20/23 05:25: White Blood Count 4.9, Red Blood Count 2.99L, Hemoglobin 9.1L, Hematocrit 28L, Mean Corpuscular Volume 92, Mean Corpuscular Hemoglobin 30, Mean Corpuscular Hemoglobin Concent 33, Red Cell Distribution Width 19.3H, Platelet Count 84L, Mean Platelet Volume , Immature Granulocyte % (Auto) 1, Neutrophils (%) (Auto) 73, Lymphocytes (%) (Auto) 14, Monocytes (%) (Auto) 10, Eosinophils (%) (Auto) 2, Basophils (%) (Auto) 0, Neutrophils # (Auto) 3.6, Lymphocytes # (Auto) 0.7L, Monocytes # (Auto) 0.5, Eosinophils # (Auto) 0.1, Basophils # (Auto) 0.0, Immature Granulocyte # (Auto) 0.1, Percent Immature Platelet Fraction 11.5H, Sodium Level 139, Potassium Level 3.5L, Chloride Level 110H, Carbon Dioxide Level 26, Anion Gap 3L, Blood Urea Nitrogen 12, Creatinine 0.62, Estimat Rosemary merular Filtration Rate 91, BUN/Creatinine Ratio 19, Glucose Level 144H, Calcium Level 8.7, Corrected Calcium 9.7, Total Bilirubin 1.8H, Aspartate Amino Transf (AST/SGOT) 17, Alanine Aminotransferase (ALT/SGPT) 82H, Alkaline Phosphatase 84, Total Protein 5.1L, Albumin 2.7L 03/20/23 10:50: Glucometer 195H Microbiology 03/17/23 Blood Culture - Final, Complete Escherichia coli 03/17/23 Urine Culture - Final, Complete NO GROWTH Assessment/Plan Assessment/Plan Assess & Plan/Chief Complaint Assessment: Sepsis PNA Acute hypoxic resp failure Acute liver failure Ductal system blockage with stones HTN AF OP PMR CKD DM Hypoglycemia Plan: ERCP Dr Lobato 4th floor IV abx Clinical Quality Measures Admission Status Admission Dx Assessment: Sepsis PNA Acute hypoxic resp failure Acute liver failure Ductal system blockage with stones HTN AF OP PMR CKD DM Hypoglycemia Plan: MRCP Dr Lobato ICU IV abx SAMEER MASTERSON DO Mar 20, 2023 11:40
--- NOTE | 2023-03-20 12:45 | Cardiology Progress Note ---
Subjective Date Seen by Provider: Mar 20, 2023 Time Seen by Provider: 12:39 Subjective/Events-last exam Complaining of feeling heart beating fast Review of Systems General: No Chills, No Night Sweats, No Fatigue, No Malaise, No Appetite, No Other HEENT: No Head Aches, No Visual Changes, No Eye Pain, No Ear Pain, No Dysphasia, No Sinus Congestion, No Post Nasal Drip, No Sore Throat, No Other Pulmonary: No Dyspnea, No Cough, No Pleuritic Chest Pain, No Other Cardiovascular: No: Chest Pain, Palpitations, Orthopnea, Paroxysmal Noc. Dyspnea, Edema, Lt Headedness, Other Gastrointestinal: No: Nausea, Vomiting, Abdominal Pain, Diarrhea, Constipation, Melena, Hematochezia, Other Genitourinary: No Dysuria, No Frequency, No Incontinence, No Hematuria, No Retention, No Other Musculoskeletal: No: other, neck pain, shoulder pain, arm pain, back pain, hand pain, leg pain, foot pain Neurological: No: Weakness, Numbness, Incoordination, Change in speech, Confusion, Seizures, Other Exam Vital Signs Vital Signs Date Time Temp Pulse Resp B/P (MAP) Pulse Ox O2 Delivery O2 Flow Rate FiO2 03/20/23 11:00 36.5 98 18 163/71 (101) 98 Nasal Cannula 2.00 03/18/23 22:30 28 Physical Exam Alert oriented no distress. Neck supple, no JVD. Lungs decreased breath sounds bilaterally. Heart: Normal sounds, irregular heart beats, no murmurs. Abdomen soft nontender. Extremities no edema. Labs Laboratory Tests Test 03/19/23 16:10 03/19/23 20:09 03/20/23 05:25 03/20/23 10:50 Range/Units Glucometer 189 H 155 H 195 H 70-110 MG/DL White Blood Count 4.9 4.3-11.0 10^3/uL Red Blood Count 2.99 L 3.80-5.11 10^6/uL Hemoglobin 9.1 L 11.5-16.0 g/dL Hematocrit 28 L 35-52 % Mean Corpuscular Volume 92 80-99 fL Mean Corpuscular Hemoglobin 30 25-34 pg Mean Corpuscular Hemoglobin Concent 33 32-36 g/dL Red Cell Distribution Width 19.3 H 10.0-14.5 % Platelet Count 84 L 130-400 10^3/uL Mean Platelet Volume 9.0-12.2 fL Immature Granulocyte % (Auto) 1 % Neutrophils (%) (Auto) 73 42-75 % Lymphocytes (%) (Auto) 14 12-44 % Monocytes (%) (Auto) 10 0-12 % Eosinophils (%) (Auto) 2 0-10 % Basophils (%) (Auto) 0 0-10 % Neutrophils # (Auto) 3.6 1.8-7.8 10^3/uL Lymphocytes # (Auto) 0.7 L 1.0-4.0 10^3/uL Monocytes # (Auto) 0.5 0.0-1.0 10^3/uL Eosinophils # (Auto) 0.1 0.0-0.3 10^3/uL Basophils # (Auto) 0.0 0.0-0.1 10^3/uL Immature Granulocyte # (Auto) 0.1 0.0-0.1 10^3/uL Percent Immature Platelet Fraction 11.5 H 0.0-7.6 % Sodium Level 139 135-145 MMOL/L Potassium Level 3.5 L 3.6-5.0 MMOL/L Chloride Level 110 H 98-107 MMOL/L Carbon Dioxide Level 26 21-32 MMOL/L Anion Gap 3 L 5-14 MMOL/L Blood Urea Nitrogen 12 7-18 MG/DL Creatinine 0.62 0.60-1.30 MG/DL Estimat Glomerular Filtration Rate 91 BUN/Creatinine Ratio 19 Glucose Level 144 H 70-105 MG/DL Calcium Level 8.7 8.5-10.1 MG/DL Corrected Calcium 9.7 8.5-10.1 MG/DL Total Bilirubin 1.8 H 0.1-1.0 MG/DL Aspartate Amino Transf (AST/SGOT) 17 5-34 U/L Alanine Aminotransferase (ALT/SGPT) 82 H 0-55 U/L Alkaline Phosphatase 84 40-136 U/L Total Protein 5.1 L 6.4-8.2 GM/DL Albumin 2.7 L 3.2-4.5 GM/DL A/P-Cardiology Admission Diagnosis Acute cholangitis Pneumonia Paroxysmal atrial fibrillation Palpitation Assessment/Plan Pneumonia, cholangeitis Gallstones in the common bile duct, currently n.p.o. and possible ERCP Managed by medical team Paroxysmal atrial fibrillation, back in atrial fibrillation with rapid ventricular response. Patient has been maintained on Toprol-XL 200 mg daily and Cardizem CD 240 mg daily. Currently on Cardizem drip and heparin drip in preparation for possible ERCP. continue to monitor rate. Will consider digoxin if the heart rate remains above 100. Eliquis has been on hold History of syncope, resolved. Continue to monitor. Coronary artery disease, history of CABG 4 in 2003 using vein graft to posterior descending, vein graft to OM, vein graft to diagonal, OROZCO to LAD, with Maze procedure. [id number] score is 6, yearly risk of stroke without oral anticoagulation is 9.8 percent, she is considered high risk for stroke. Continue heparin for now, consider to restart Eliquis 2.5mg BID. Hypertension, monitor blood pressure Hyperlipidemia, Maintained on pravastatin 20 mg daily, fenofibrate 160 mg daily and fish oil, currently on hold Diabetes mellitus, followed and managed by primary care physician Mild bilateral nonobstructive carotid artery stenosis, continue to monitor KM TAPIA MD Mar 20, 2023 12:45
[2023-03-20] MEDS: cefTRIAXone IV/IM 1,000 MG in NS (IVPB) 50 ML 50 ML IV SCH (12:48)
[2023-03-20 15:26] VITALS: BP 151/69
[2023-03-20 20:03] VITALS: BP 148/79
[2023-03-20] MEDS: LORATADINE 10 MG TABLET PO SCH (20:12)
[2023-03-20] MEDS: LOSARTAN 100 MG TABLET PO SCH (20:12)
[2023-03-20] MEDS: MAGNESIUM OXIDE 400 MG TABLET PO SCH (20:12)
[2023-03-20 23:07] VITALS: BP 158/84
[2023-03-21 03:02] VITALS: BP 142/70
[2023-03-21 06:09] VITALS: BP 142/70
[2023-03-21] MEDS: PANTOPRAZOLE 40 MG TABLET PO SCH (06:14)
[2023-03-21] MEDS: inSUlin ASPART 1 UNIT/0.01 ML (PER UNIT) SC SCH ×4 (06:21→20:11)
[2023-03-21 06:39] LABS: BASOPHILS % (AUTO) 1 % (0-10); EOSINOPHILS # (AUTO) 0.1 10^3/uL (0.0-0.3); EOSINOPHILS % (AUTO) 3 % (0-10); HEMATOCRIT 31 % (35-52); HEMOGLOBIN 10.1 g/dL (11.5-16.0); LYMPHOCYTES # (AUTO) 1.1 10^3/uL (1.0-4.0); LYMPHOCYTES % (AUTO) 31 % (12-44); MEAN CORPUSCULAR HEMOGLOBIN 30 pg (25-34); MEAN CORPUSCULAR HGB CONC 33 g/dL (32-36); MEAN CORPUSCULAR VOLUME 92 fL (80-99); MONOCYTES # (AUTO) 0.5 10^3/uL (0.0-1.0); MONOCYTES % (AUTO) 13 % (0-12); NEUTROPHILS # (AUTO) 1.9 10^3/uL (1.8-7.8); NEUTROPHILS % (AUTO) 52 % (42-75); WHITE BLOOD COUNT 3.7 10^3/uL (4.3-11.0)
[2023-03-21 06:41] LABS: PLATELET COUNT 116 10^3/uL (130-400)
[2023-03-21 06:43] LABS: POTASSIUM 3.5 MMOL/L (3.6-5.0)
[2023-03-21 06:44] LABS: CALCIUM 9.4 MG/DL (8.5-10.1)
[2023-03-21 06:45] LABS: TOTAL PROTEIN 5.6 GM/DL (6.4-8.2)
[2023-03-21 06:47] LABS: BILIRUBIN,TOTAL 1.5 MG/DL (0.1-1.0)
[2023-03-21 06:49] LABS: CREATININE SERUM 0.62 MG/DL (0.60-1.30)
[2023-03-21] MEDS: FLUTICASONE/VILANTEROL 100/25 MCG (14 DOSES) IH SCH (06:54)
[2023-03-21] MEDS: RT-ALBUTEROL SULF 2.5 MG/3 ML PRE-MIX VIAL INH SCH ×2 (06:54→19:18)
[2023-03-21 07:53] VITALS: BP 155/80
[2023-03-21] MEDS: predniSONE 1 MG TABLET PO SCH (09:18)
[2023-03-21] MEDS: SENNOSIDES 8.6 MG TABLET PO SCH ×2 (09:18→20:19)
[2023-03-21] MEDS: DOCUSATE SODIUM 100 MG CAPSULE PO SCH ×2 (09:18→20:20)
[2023-03-21] MEDS: GABAPENTIN 300 MG CAPSULE PO SCH ×3 (09:18→20:19)
[2023-03-21] MEDS: dilTIAZem ER 240 MG CAPSULE PO SCH (09:18)
[2023-03-21] MEDS ORDERED: DIGOXIN INJECTION 0.25 MG/ML 2 ML AMPULE IV ONE (10:00)
[2023-03-21 11:26] VITALS: BP 172/79
[2023-03-21] MEDS: cefTRIAXone IV/IM 1,000 MG in NS (IVPB) 50 ML 50 ML IV SCH (11:45)
--- NOTE | 2023-03-21 11:57 | Cardiology Progress Note ---
Subjective Date Seen by Provider: Mar 21, 2023 Time Seen by Provider: 11:53 Subjective/Events-last exam Feels better. Denies feeling cough rapid heart beating. Heart rate is better controlled today Review of Systems General: No Chills, No Night Sweats, No Fatigue, No Malaise, No Appetite, No Other HEENT: No Head Aches, No Visual Changes, No Eye Pain, No Ear Pain, No Dysphasia, No Sinus Congestion, No Post Nasal Drip, No Sore Throat, No Other Pulmonary: No Dyspnea, No Cough, No Pleuritic Chest Pain, No Other Cardiovascular: No: Chest Pain, Palpitations, Orthopnea, Paroxysmal Noc. Dyspne a, Edema, Lt Headedness, Other Gastrointestinal: No: Nausea, Vomiting, Abdominal Pain, Diarrhea, Constipation, Melena, Hematochezia, Other Genitourinary: No Dysuria, No Frequency, No Incontinence, No Hematuria, No Retention, No Other Musculoskeletal: No: other, neck pain, shoulder pain, arm pain, back pain, hand pain, leg pain, foot pain Neurological: No: Weakness, Numbness, Incoordination, Change in speech, Confusion, Seizures, Other Exam Vital Signs Vital Signs Date Time Temp Pulse Resp B/P (MAP) Pulse Ox O2 Delivery O2 Flow Rate FiO2 03/21/23 11:26 36.5 88 20 172/79 (110) 99 Nasal Cannula 2.00 03/18/23 22:30 28 Physical Exam Alert and oriented, no distress. Neck supple, no JVD. Lungs: Clear anteriorly. Heart: S1-S2, irregular rhythm, no murmurs. Abdomen soft, nontender. Extremities no edema Labs Laboratory Tests Test 03/20/23 15:29 03/21/23 06:20 03/21/23 11:25 Range/Units Glucometer 177 H 84 139 H 70-110 MG/DL White Blood Count 3.7 L 4.3-11.0 10^3/uL Red Blood Count 3.35 L 3.80-5.11 10^6/uL Hemoglobin 10.1 L 11.5-16.0 g/dL Hematocrit 31 L 35-52 % Mean Corpuscular Volume 92 80-99 fL Mean Corpuscular Hemoglobin 30 25-34 pg Mean Corpuscular Hemoglobin Concent 33 32-36 g/dL Red Cell Distribution Width 19.3 H 10.0-14.5 % Platelet Count 116 L 130-400 10^3/uL Mean Platelet Volume 9.0-12.2 fL Immature Granulocyte % (Auto) 2 % Neutrophils (%) (Auto) 52 42-75 % Lymphocytes (%) (Auto) 31 12-44 % Monocytes (%) (Auto) 13 H 0-12 % Eosinophils (%) (Auto) 3 0-10 % Basophils (%) (Auto) 1 0-10 % Neutrophils # (Auto) 1.9 1.8-7.8 10^3/uL Lymphocytes # (Auto) 1.1 1.0-4.0 10^3/uL Monocytes # (Auto) 0.5 0.0-1.0 10^3/uL Eosinophils # (Auto) 0.1 0.0-0.3 10^3/uL Basophils # (Auto) 0.0 0.0-0.1 10^3/uL Immature Granulocyte # (Auto) 0.1 0.0-0.1 10^3/uL Percent Immature Platelet Fraction 13.0 H 0.0-7.6 % Sodium Level 142 135-145 MMOL/L Potassium Level 3.5 L 3.6-5.0 MMOL/L Chloride Level 107 98-107 MMOL/L Carbon Dioxide Level 28 21-32 MMOL/L Anion Gap 7 5-14 MMOL/L Blood Urea Nitrogen 11 7-18 MG/DL Creatinine 0.62 0.60-1.30 MG/DL Estimat Glomerular Filtration Rate 91 BUN/Creatinine Ratio 18 Glucose Level 128 H 70-105 MG/DL Calcium Level 9.4 8.5-10.1 MG/DL Corrected Calcium 10.2 H 8.5-10.1 MG/DL Total Bilirubin 1.5 H 0.1-1.0 MG/DL Aspartate Amino Transf (AST/SGOT) 14 5-34 U/L Alanine Aminotransferase (ALT/SGPT) 60 H 0-55 U/L Alkaline Phosphatase 76 40-136 U/L Total Protein 5.6 L 6.4-8.2 GM/DL Albumin 3.0 L 3.2-4.5 GM/DL A/P-Cardiology Admission Diagnosis Acute cholangitis Pneumonia Paroxysmal atrial fibrillation Palpitation Assessment/Plan Pneumonia, cholangeitis Gallstones in the common bile duct, currently n.p.o. and possible ERCP Managed by medical team Paroxysmal atrial fibrillation, back in atrial fibrillation with normal ventricular response. Patient has been maintained on Toprol-XL 200 mg daily and Cardizem CD 240 mg daily. Currently on Cardizem drip and heparin drip in preparation for possible ERCP. continue to monitor rate. digoxin has been given in the morning . Eliquis has been on hold History of syncope, resolved. Continue to monitor. Coronary artery disease, history of CABG 4 in 2003 using vein graft to posterior descending, vein graft to OM, vein graft to diagonal, OROZCO to LAD, with Maze procedure. [id number] score is 6, yearly risk of stroke without oral anticoagulation is 9.8 percent, she is considered high risk for stroke. Continue heparin for now, consider to restart Eliquis 2.5mg BID. Hypertension, monitor blood pressure Hyperlipidemia, Maintained on pravastatin 20 mg daily, fenofibrate 160 mg daily and fish oil, currently on hold Diabetes mellitus, followed and managed by primary care physician Mild bilateral nonobstructive carotid artery stenosis, continue to monitor KM TAPIA MD Mar 21, 2023 11:56
--- NOTE | 2023-03-21 13:27 | Progress Note ---
Subjective Date Seen by a Provider: Mar 21, 2023 Time Seen by a Provider: 09:00 Subjective/Events-last exam Patient doing well Liver enzymes much improved Eating better Bowels are moving Catheter removed IV antibiotics maintained Doing much better Review of Systems General: Fatigue Focused Exam Time of Focused Exam: 02:00 Objective Exam Last Set of Vital Signs Vital Signs Date Time Temp Pulse Resp B/P (MAP) Pulse Ox O2 Delivery O2 Flow Rate FiO2 03/21/23 11:26 36.5 88 20 172/79 (110) 99 Nasal Cannula 2.00 03/18/23 22:30 28 Capillary Refill : Less Than 3 Seconds I&O Intake and Output 03/20/23 23:59 Intake Total 1380 ml Output Total 2150 ml Balance -770 ml Intake Oral 1280 ml IV Total 100 ml Output Urine Total 2150 ml General: Alert, Oriented X3, Cooperative, No Acute Distress Lungs: Clear to Auscultation, Normal Air Movement Heart: Regular Rate, Normal S1, Normal S2, No Murmurs Psych/Mental Status: Mental Status NL, Mood NL Results Lab Laboratory Tests 03/20/23 15:29: Glucometer 177H 03/21/23 06:20: Glucometer 84, White Blood Count 3.7L, Red Blood Count 3.35L, Hemoglobin 10.1L, Hematocrit 31L, Mean Corpuscular Volume 92, Mean Corpuscular Hemoglobin 30, Mean Corpuscular Hemoglobin Concent 33, Red Cell Distribution Width 19.3H, Platelet Count 116L, Mean Platelet Volume , Immature Granulocyte % (Auto) 2, Neutrophils (%) (Auto) 52, Lymphocytes (%) (Auto) 31, Monocytes (%) (Auto) 13H, Eosinophils (%) (Auto) 3, Basophils (%) (Auto) 1, Neutrophils # (Auto) 1.9, Lymphocytes # (Auto) 1.1, Monocytes # (Auto) 0.5, Eosinophils # (Auto) 0.1, Basophils # (Auto) 0.0, Immature Granulocyte # (Auto) 0.1, Percent Immature Platelet Fraction 13.0H , Sodium Level 142, Potassium Level 3.5L, Chloride Level 107, Carbon Dioxide Level 28, Anion Gap 7, Blood Urea Nitrogen 11, Creatinine 0.62, Estimat Glomerular Filtration Rate 91, BUN/Creatinine Ratio 18, Glucose Level 128H, Calcium Level 9.4, Corrected Calcium 10.2H, Total Bilirubin 1.5H, Aspartate Amino Transf (AST/SGOT) 14, Alanine Aminotransferase (ALT/SGPT) 60H, Alkaline Phosphatase 76, Total Protein 5.6L, Albumin 3.0L 03/21/23 11:25: Glucometer 139H Microbiology 03/17/23 Blood Culture - Final, Complete Escherichia coli 03/17/23 Urine Culture - Final, Complete NO GROWTH Assessment/Plan Assessment/Plan Assess & Plan/Chief Complaint Assessment: Sepsis PNA Acute hypoxic resp failure Acute liver failure Ductal system blockage with stones HTN AF OP PMR CKD DM Hypoglycemia Plan: ERCP Dr Lobato 4th floor IV abx Clinical Quality Measures Admission Status Admission Dx Assessment: Sepsis PNA Acute hypoxic resp failure Acute liver failure Ductal system blockage with stones HTN AF OP PMR CKD DM Hypoglycemia Plan: MRCP Dr Lobato ICU IV abx SAMEER MASTERSON DO Mar 21, 2023 13:27
[2023-03-21] MEDS: ENOXAPARIN 80 MG/0.8 ML SYRINGE SC SCH (13:50)
[2023-03-21 15:14] VITALS: BP 164/70
[2023-03-21 20:02] VITALS: BP 171/91
[2023-03-21] MEDS: LOSARTAN 100 MG TABLET PO SCH (20:19)
[2023-03-21] MEDS: hydrALAZINE INJECTION 20 MG/ML VIAL IV PRN (20:19)
[2023-03-21] MEDS: MAGNESIUM OXIDE 400 MG TABLET PO SCH (20:19)
[2023-03-21] MEDS: LORATADINE 10 MG TABLET PO SCH (20:20)
[2023-03-22 00:59] VITALS: BP 155/73
[2023-03-22] MEDS: ENOXAPARIN 80 MG/0.8 ML SYRINGE SC SCH ×2 (01:02→14:10)
[2023-03-22 04:59] VITALS: BP 190/83
[2023-03-22 05:04] LABS: BASOPHILS % (AUTO) 1 % (0-10); EOSINOPHILS # (AUTO) 0.1 10^3/uL (0.0-0.3); EOSINOPHILS % (AUTO) 4 % (0-10); HEMATOCRIT 30 % (35-52); LYMPHOCYTES # (AUTO) 1.2 10^3/uL (1.0-4.0); LYMPHOCYTES % (AUTO) 40 % (12-44); MEAN CORPUSCULAR HEMOGLOBIN 30 pg (25-34); MEAN CORPUSCULAR HGB CONC 33 g/dL (32-36); MEAN CORPUSCULAR VOLUME 91 fL (80-99); MONOCYTES # (AUTO) 0.3 10^3/uL (0.0-1.0); MONOCYTES % (AUTO) 8 % (0-12); NEUTROPHILS # (AUTO) 1.4 10^3/uL (1.8-7.8); NEUTROPHILS % (AUTO) 45 % (42-75); PLATELET COUNT 126 10^3/uL (130-400)
[2023-03-22 05:15] LABS: POTASSIUM 3.1 MMOL/L (3.6-5.0)
[2023-03-22 05:16] LABS: CALCIUM 9.3 MG/DL (8.5-10.1)
[2023-03-22] MEDS: hydrALAZINE INJECTION 20 MG/ML VIAL IV PRN (05:16)
[2023-03-22] MEDS: ONDANSETRON INJECTION 4 MG/2 ML (SDV) IV PRN (05:16)
[2023-03-22] MEDS: PANTOPRAZOLE 40 MG TABLET PO SCH (05:16)
[2023-03-22 05:17] LABS: TOTAL PROTEIN 5.6 GM/DL (6.4-8.2)
[2023-03-22 05:19] LABS: BILIRUBIN,TOTAL 1.3 MG/DL (0.1-1.0)
[2023-03-22] MEDS: inSUlin ASPART 1 UNIT/0.01 ML (PER UNIT) SC SCH ×2 (05:19→12:01)
[2023-03-22 05:21] LABS: CREATININE SERUM 0.62 MG/DL (0.60-1.30)
[2023-03-22 06:06] VITALS: BP 173/72
[2023-03-22] MEDS ORDERED: POTASSIUM CHLORIDE 20 MEQ TABLET PO ONE (07:15)
[2023-03-22 07:27] VITALS: BP 191/79
[2023-03-22] MEDS: RT-ALBUTEROL SULF 2.5 MG/3 ML PRE-MIX VIAL INH SCH (08:40)
[2023-03-22] MEDS: GABAPENTIN 300 MG CAPSULE PO SCH ×2 (09:12→14:10)
[2023-03-22] MEDS: dilTIAZem ER 240 MG CAPSULE PO SCH (09:12)
[2023-03-22] MEDS: SENNOSIDES 8.6 MG TABLET PO SCH (09:12)
[2023-03-22] MEDS: DOCUSATE SODIUM 100 MG CAPSULE PO SCH (09:12)
[2023-03-22] MEDS: predniSONE 1 MG TABLET PO SCH (09:12)
[2023-03-22] MEDS ORDERED: amLODIPine 5 MG TABLET PO ONE (09:30)
--- NOTE | 2023-03-22 09:33 | Discharge Summary ---
Diagnosis/Chief Complaint Date of Admission Mar 17, 2023 at 03:28 Date of Discharge Discharge Date: Mar 22, 2023 Reason Hospital Visit CC: Diarrhea with weakness HPI: This is a 77yoWF clinic patient of mine who presented to the ER with similar complaints as she had prior to admit to [facility] [place] weeks ago. She had jaundice at that time and was found to have severely high LFT's thought to be from meds so meds were stopped and patient was given IVF and conservative care and her liver returned to normal and USG was negative. When she was in ER I requested a CT scan which revealed possible stones in ductal system and MRCP ordered along with Dr Lobato consult. Discharge Summary Discharge Physical Examination Allergies: Coded Allergies: amiodarone (Verified Allergy, Intermediate, 07/29/07) butorphanol (Verified Allergy, Intermediate, 07/29/07) codeine (Verified Allergy, Intermediate, 07/29/07) epinephrine (Verified Allergy, Intermediate, 07/29/07) hydrocodone (Verified Allergy, Intermediate, 07/29/07) morphine (Verified Allergy, Intermediate, 07/29/07) Vitals & I&Os Vital Signs Date Time Temp Pulse Resp B/P (MAP) Pulse Ox O2 Delivery O2 Flow Rate FiO2 03/22/23 09:00 Nasal Cannula 2.50 03/22/23 08:40 97 03/22/23 07:27 36.5 89 18 191/79 (116) 03/18/23 22:30 28 Hospital Course Labs (last 24 hrs) Laboratory Tests 03/17/23 01:10: White Blood Count 5.4, Red Blood Count 3.92, Hemoglobin 11.9, Hematocrit 36, Mean Corpuscular Volume 93, Mean Corpuscular Hemoglobin 30, Mean Corpuscular Hemoglobin Concent 33, Red Cell Distribution Width 19.5H, Platelet Count 144, Mean Platelet Volume , Immature Granulocyte % (Auto) 1, Neutrophils (%) (Auto) 91H, Lymphocytes (%) (Auto) 4L, Monocytes (%) (Auto) 3, Eosinophils (%) (Auto) 0, Basophils (%) (Auto) 1, Neutrophils # (Auto) 4.9, Lymphocytes # (Auto) 0.2L, Monocytes # (Auto) 0.2, Eosinophils # (Auto) 0.0, Basophils # (Auto) 0.0, Immature Granulocyte # (Auto) 0.1, Neutrophils % (Manual) 87, Lymphocytes % (Manual) 5, Monocytes % (Manual) 2, Band Neutrophils 6, Percent Immature Platelet Fraction 9.0H, Polychromasia SLIGHT, Poikilocytosis SLIGHT, Anisocytosis MODERATE, Elliptocytes MODERATE, Prothrombin Time 15.3H, INR Comment 1.2, Activated Partial Thromboplast Time 29, Sodium Level 138, Potassium Level 3.5L, Chloride Level 107, Carbon Dioxide Level 20L, Anion Gap 11, Blood Urea Nitrogen 19H, Creatinine 0.79, Estimat Glomerular Filtration Rate 76, BUN/Creatinine Ratio 24, Glucose Level 222H, Lactic Acid Level 2.43*H, Calcium Level 9.1, Corrected Calcium 9.2, Total Bilirubin 4.6H, Aspartate Amino Transf (AST/SGOT) 601H, Alanine Aminotransferase (ALT/SGPT) 283H, Alkaline Phosphatase 194H, Total Protein 6.6, Albumin 3.9, Influenza Type A (RT-PCR) Not Detected, Influenza Type B (RT-PCR) Not Detected, SARS-CoV-2 RNA (RT-PCR) Not Detected 03/17/23 01:40: Urine Color YELLOW, Urine Clarity SL CLOUDY, Urine pH 6.0, Urine Specific [place] 1.015L, Urine Protein 1+H, Urine Glucose (UA) 2+H, Urine Ketones NEGATIVE, Urine Nitrite NEGATIVE, Urine Bilirubin 1+H, Urine Urobilinogen 2.0, Urine Leukocyte Esterase NEGATIVE, Urine RBC (Auto) TRACEH, Urine RBC RARE, Urine WBC NONE, Urine Crystals NONE, Urine Bacteria NEGATIVE, Urine Casts PRESENT, Urine Hyaline Casts 0-2H, Urine Mucus NEGATIVE, Urine Culture Indicated NO 03/17/23 05:19: Lactic Acid Level 5.04*H 03/17/23 06:25: Glucometer 100 03/17/23 11:15: White Blood Count 17.0H, Red Blood Count 3.27L, Hemoglobin 9.9L, Hematocrit 30L, Mean Corpuscular Volume 92, Mean Corpuscular Hemoglobin 30, Mean Corpuscular Hemoglobin Concent 33, Red Cell Distribution Width 19.8H, Platelet Count 130, Mean Platelet Volume 12.1, Immature Granulocyte % (Auto) 2, Neutrophils (%) (Auto) 77H, Lymphocytes (%) (Auto) 6L, Monocytes (%) (Auto) 14H, Eosinophils (%) (Auto) 0, Basophils (%) (Auto) 0, Neutrophils # (Auto) 13.2H, Lymphocytes # (Auto) 1.0, Monocytes # (Auto) 2.4H, Eosinophils # (Auto) 0.0, Basophils # (Auto) 0.1, Immature Granulocyte # (Auto) 0.3H, Neutrophils % (Manual) 75, Lymphocytes % (Manual) 7, Monocytes % (Manual) 14, Eosinophils % (Manual) 1, Basophils % (Manual) 0, Band Neutrophils 3, Percent Immature Platelet Fraction 10.0H, Polychromasia SLIGHT, Anisocytosis MARKED, Elliptocytes SLIGHT, Prothrombin Time 17.7H, INR Comment 1.4, Sodium Level 141, Potassium Level 3.2L, Chloride Level 112H, Carbon Dioxide Level 20L, Anion Gap 9, Blood Urea Nitrogen 18, Creatinine 0.75, Estimat Glomerular Filtration Rate 81, BUN/Creatinine Ratio 24, Glucose Level 99, Calcium Level 8.3L, Corrected Calcium 8.9, Total Bilirubin 5.4H, Aspartate Amino Transf (AST/SGOT) 402H, Alanine Aminotransferase (ALT/SGPT) 292H, Alkaline Phosphatase 124, Total Protein 5.2L, Albumin 3.2 03/17/23 16:14: Glucometer 69L 03/17/23 17:08: Glucometer 92 03/17/23 20:36: Glucometer 52*L 03/17/23 22:01: Glucometer 98 03/17/23 23:15: White Blood Count 14.0H, Red Blood Count 3.35L, Hemoglobin 10.3L, Hematocrit 31L , Mean Corpuscular Volume 92, Mean Corpuscular Hemoglobin 31, Mean Corpuscular Hemoglobin Concent 33, Red Cell Distribution Width 20.0H, Platelet Count 116L, Mean Platelet Volume 11.8, Prothrombin Time 17.6H, INR Comment 1.4, Activated Partial Thromboplast Time 37H 03/18/23 03:54: White Blood Count 13.0H, Red Blood Count 3.32L, Hemoglobin 10.1L, Hematocrit 31L , Mean Corpuscular Volume 93, Mean Corpuscular Hemoglobin 30, Mean Corpuscular Hemoglobin Concent 33, Red Cell Distribution Width 19.9H, Platelet Count 114L, Mean Platelet Volume , Activated Partial Thromboplast Time 87H, Immature Granulocyte % (Auto) 2, Neutrophils (%) (Auto) 79H, Lymphocytes (%) (Auto) 8L, Monocytes (%) (Auto) 11, Eosinophils (%) (Auto) 0, Basophils (%) (Auto) 0, Neutrophils # (Auto) 10.3H, Lymphocytes # (Auto) 1.0, Monocytes # (Auto) 1.4H, Eosinophils # (Auto) 0.0, Basophils # (Auto) 0.0, Immature Granulocyte # (Auto) 0.2H, Percent Immature Platelet Fraction 10.6H, Sodium Level 140, Potassium Level 2.7L, Chloride Level 112H, Carbon Dioxide Level 19L, Anion Gap 9, Blood Urea Nitrogen 14, Creatinine 0.67, Estimat Glomerular Filtration Rate 89, BUN/Creatinine Ratio 21, Glucose Level 79, Calcium Level 7.9L, Corrected Calcium 8.8, Magnesium Level 1.3L, Total Bilirubin 5.1H, Aspartate Amino Transf (AST/SGOT) 176H, Alanine Aminotransferase (ALT/SGPT) 208H, Alkaline Phosphatase 103, Total Protein 5.1L, Albumin 2.9L 03/18/23 09:50: Activated Partial Thromboplast Time 87H 03/18/23 10:26: Glucometer 146H 03/18/23 15:48: Glucometer 176H 03/18/23 16:30: Activated Partial Thromboplast Time 62H, Potassium Level 3.4L 03/18/23 20:43: Glucometer 207H 03/18/23 22:55: Activated Partial Thromboplast Time 45H 03/19/23 04:51: Activated Partial Thromboplast Time 60H, White Blood Count 9.7, Red Blood Count 2.95L, Hemoglobin 8.8L, Hematocrit 28L, Mean Corpuscular Volume 94, Mean Corpuscular Hemoglobin 30, Mean Corpuscular Hemoglobin Concent 32, Red Cell Distribution Width 20.2H, Platelet Count 91L, Mean Platelet Volume , Immature Granulocyte % (Auto) 2, Neutrophils (%) (Auto) 79H, Lymphocytes (%) (Auto) 10L, Monocytes (%) (Auto) 9, Eosinophils (%) (Auto) 0, Basophils (%) (Auto) 0, Neutrophils # (Auto) 7.6, Lymphocytes # (Auto) 0.9L, Monocytes # (Auto) 0.9, Eosinophils # (Auto) 0.0, Basophils # (Auto) 0.0, Immature Granulocyte # (Auto) 0.2H, Percent Immature Platelet Fraction 10.7H, Sodium Level 134L, Potassium Level 4.0, Chloride Level 110H, Carbon Dioxide Level 20L, Anion Gap 4L, Blood Urea Nitrogen 15, Creatinine 0.75, Estimat Glomerular Filtration Rate 81, BUN/Creatinine Ratio 20, Glucose Level 160H, Calcium Level 7.8L, Corrected Calcium 8.8, Magnesium Level 2.4, Total Bilirubin 2.7H, Aspartate Amino Transf (AST/SGOT) 43H, Alanine Aminotransferase (ALT/SGPT) 125H, Alkaline Phosphatase 88, Total Protein 4.9L, Albumin 2.7L 03/19/23 10:28: Glucometer 184H 03/19/23 12:15: Activated Partial Thromboplast Time 50H 03/19/23 16:10: Glucometer 189H 03/19/23 20:09: Glucometer 155H 03/20/23 05:25: White Blood Count 4.9, Red Blood Count 2.99L, Hemoglobin 9.1L, Hematocrit 28L, Mean Corpuscular Volume 92, Mean Corpuscular Hemoglobin 30, Mean Corpuscular Hemoglobin Concent 33, Red Cell Distribution Width 19.3H, Platelet Count 84L, Mean Platelet Volume , Immature Granulocyte % (Auto) 1, Neutrophils (%) (Auto) 73, Lymphocytes (%) (Auto) 14, Monocytes (%) (Auto) 10, Eosinophils (%) (Auto) 2, Basophils (%) (Auto) 0, Neutrophils # (Auto) 3.6, Lymphocytes # (Auto) 0.7L, Monocytes # (Auto) 0.5, Eosinophils # (Auto) 0.1, Basophils # (Auto) 0.0, Immature Granulocyte # (Auto) 0.1, Percent Immature Platelet Fraction 11.5H, Sodium Level 139, Potassium Level 3.5L, Chloride Level 110H, Carbon Dioxide Level 26, Anion Gap 3L, Blood Urea Nitrogen 12, Creatinine 0.62, Estimat Glomerular Filtration Rate 91, BUN/Creatinine Ratio 19, Glucose Level 144H, Calcium Level 8.7, Corrected Calcium 9.7, Total Bilirubin 1.8H, Aspartate Amino Transf (AST/SGOT) 17, Alanine Aminotransferase (ALT/SGPT) 82H, Alkaline Phosphatase 84, Total Protein 5.1L, Albumin 2.7L 03/20/23 10:50: Glucometer 195H 03/20/23 15:29: Glucometer 177H 03/21/23 06:20: Glucometer 84, White Blood Count 3.7L, Red Blood Count 3.35L, Hemoglobin 10.1L, Hematocrit 31L, Mean Corpuscular Volume 92, Mean Corpuscular Hemoglobin 30, Mean Corpuscular Hemoglobin Concent 33, Red Cell Distribution Width 19.3H, Platelet Count 116L, Mean Platelet Volume , Immature Granulocyte % (Auto) 2, Neutrophils (%) (Auto) 52, Lymphocytes (%) (Auto) 31, Monocytes (%) (Auto) 13H, Eosinophils (%) (Auto) 3, Basophils (%) (Auto) 1, Neutrophils # (Auto) 1.9, Lymphocytes # (Auto) 1.1, Monocytes # (Auto) 0.5, Eosinophils # (Auto) 0.1, Basophils # (Auto) 0.0, Immature Granulocyte # (Auto) 0.1, Percent Immature Platelet Fraction 13.0H , Sodium Level 142, Potassium Level 3.5L, Chloride Level 107, Carbon Dioxide Level 28, Anion Gap 7, Blood Urea Nitrogen 11, Creatinine 0.62, Estimat Glomerular Filtration Rate 91, BUN/Creatinine Ratio 18, Glucose Level 128H, Calcium Level 9.4, Corrected Calcium 10.2H, Total Bilirubin 1.5H, Aspartate Amino Transf (AST/SGOT) 14, Alanine Aminotransferase (ALT/SGPT) 60H, Alkaline Phosphatase 76, Total Protein 5.6L, Albumin 3.0L 03/21/23 11:25: Glucometer 139H 03/21/23 15:18: Glucometer 186H 03/21/23 20:06: Glucometer 146H 03/22/23 04:29: White Blood Count 3.0L, Red Blood Count 3.31L, Hemoglobin 10.0L, Hematocrit 30L, Mean Corpuscular Volume 91, Mean Corpuscular Hemoglobin 30, Mean Corpuscular Hemoglobin Concent 33, Red Cell Distribution Width 19.1H, Platelet Count 126L, Mean Platelet Volume , Immature Granulocyte % (Auto) 2, Neutrophils (%) (Auto) 45, Lymphocytes (%) (Auto) 40, Monocytes (%) (Auto) 8, Eosinophils (%) (Auto) 4, Basophils (%) (Auto) 1, Neutrophils # (Auto) 1.4L, Lymphocytes # (Auto) 1.2, Monocytes # (Auto) 0.3, Eosinophils # (Auto) 0.1, Basophils # (Auto) 0.0, Immature Granulocyte # (Auto) 0.1, Percent Immature Platelet Fraction 12.3H, Sodium Level 142, Potassium Level 3.1L, Chloride Level 104, Carbon Dioxide Level 30, Anion Gap 8, Blood Urea Nitrogen 12, Creatinine 0.62, Estimat Glomerular Filtration Rate 91, BUN/Creatinine Ratio 19, Glucose Level 113H, Calcium Level 9.3, Corrected Calcium 10.1, Total Bilirubin 1.3H, Aspartate Amino Transf (AST/SGOT) 17, Alanine Aminotransferase (ALT/SGPT) 44, Alkaline Phosphatase 80, Total Protein 5.6L, Albumin 3.0L Microbiology 03/17/23 Blood Culture - Final, Complete Escherichia coli 03/17/23 Urine Culture - Final, Complete NO GROWTH Pending Labs Microbiology Date/Time Source Procedure Growth Status 03/17/23 02:00 Peripheral Rt Hand Blood Culture - Final Escherichia coli Complete 03/17/23 01:40 Urine U Cath,Nos Urine Culture - Final NO GROWTH Complete 03/17/23 01:10 Peripheral Rt Ac Blood Culture - Final Escherichia coli Complete Laboratory Tests 03/17/23 01:10: White Blood Count 5.4, Red Blood Count 3.92, Hemoglobin 11.9, Hematocrit 36, Mean Corpuscular Volume 93, Mean Corpuscular Hemoglobin 30, Mean Corpuscular Hemoglobin Concent 33, Red Cell Distribution Width 19.5, Platelet Count 144, Mean Platelet Volume , Immature Granulocyte % (Auto) 1, Neutrophils (%) (Auto) 9 1, Lymphocytes (%) (Auto) 4, Monocytes (%) (Auto) 3, Eosinophils (%) (Auto) 0, Basophils (%) (Auto) 1, Neutrophils # (Auto) 4.9, Lymphocytes # (Auto) 0.2, Monocytes # (Auto) 0.2, Eosinophils # (Auto) 0.0, Basophils # (Auto) 0.0, Immature Granulocyte # (Auto) 0.1, Neutrophils % (Manual) 87, Lymphocytes % (Manual) 5, Monocytes % (Manual) 2, Band Neutrophils 6, Percent Immature Platel et Fraction 9.0, Polychromasia SLIGHT, Poikilocytosis SLIGHT, Anisocytosis MODERATE, Elliptocytes MODERATE, Prothrombin Time 15.3, INR Comment 1.2, Activated Partial Thromboplast Time 29, Sodium Level 138, Potassium Level 3.5, Chloride Level 107, Carbon Dioxide Level 20, Anion Gap 11, Blood Urea Nitrogen 19, Creatinine 0.79, Estimat Glomerular Filtration Rate 76, BUN/Creatinine Ratio 24, Glucose Level 222, Lactic Acid Level 2.43, Calcium Level 9.1, Corrected Calcium 9.2, Total Bilirubin 4.6, Aspartate Amino Transf (AST/SGOT) 601, Alanine Aminotransferase (ALT/SGPT) 283, Alkaline Phosphatase 194, Total Protein 6.6, Albumin 3.9, Influenza Type A (RT-PCR) Not Detected, Influenza Type B (RT-PCR) Not Detected, SARS-CoV-2 RNA (RT-PCR) Not Detected 03/17/23 01:40: Urine Color YELLOW, Urine Clarity SL CLOUDY, Urine pH 6.0, Urine Specific [place] 1.015, Urine Protein 1+, Urine Glucose (UA) 2+, Urine Ketones NEGATIVE, Urine Nitrite NEGATIVE, Urine Bilirubin 1+, Urine Urobilinogen 2.0, Urine Leukoc yte Esterase NEGATIVE, Urine RBC (Auto) TRACE, Urine RBC RARE, Urine WBC NONE, Urine Crystals NONE, Urine Bacteria NEGATIVE, Urine Casts PRESENT, Urine Hyaline Casts 0-2, Urine Mucus NEGATIVE, Urine Culture Indicated NO 03/17/23 05:19: Lactic Acid Level 5.04 03/17/23 06:25: Glucometer 100 03/17/23 11:15: White Blood Count 17.0, Red Blood Count 3.27, Hemoglobin 9.9, Hematocrit 30, Mean Corpuscular Volume 92, Mean Corpuscular Hemoglobin 30, Mean Corpuscular Hemoglobin Concent 33, Red Cell Distribution Width 19.8, Platelet Count 130, Mean Platelet Volume 12.1, Immature Granulocyte % (Auto) 2, Neutrophils (%) (Auto) 77, Lymphocytes (%) (Auto) 6, Monocytes (%) (Auto) 14, Eosinophils (%) (Auto) 0, Basophils (%) (Auto) 0, Neutrophils # (Auto) 13.2, Lymphocytes # (Auto) 1.0, Monocytes # (Auto) 2.4, Eosinophils # (Auto) 0.0, Basophils # (Auto) 0.1, Immature Granulocyte # (Auto) 0.3, Neutrophils % (Manual) 75, Lymphocytes % (Manual) 7, Monocytes % (Manual) 14, Eosinophils % (Manual) 1, Basophils % (Manual) 0, Band Neutrophils 3, Percent Immature Platelet Fraction 10.0, Polychromasia SLIGHT, Anisocytosis MARKED, Elliptocytes SLIGHT, Prothrombin Time 17.7, INR Comment 1.4, Sodium Level 141, Potassium Level 3.2, Chloride Level 112, Carbon Dioxide Level 20, Anion Gap 9, Blood Urea Nitrogen 18, Creatinine 0.75, Estimat Glomerular Filtration Rate 81, BUN/Creatinine Ratio 24, Glucose Level 99, Calcium Level 8.3, Corrected Calcium 8.9, Total Bilirubin 5.4, Aspartate Amino Transf (AST/SGOT) 402, Alanine Aminotransferase (ALT/SGPT) 292, Alkaline Phosphatase 124, Total Protein 5.2, Albumin 3.2 03/17/23 16:14: Glucometer 69 03/17/23 17:08: Glucometer 92 03/17/23 20:36: Glucometer 52 03/17/23 22:01: Glucometer 98 03/17/23 23:15: White Blood Count 14.0, Red Blood Count 3.35, Hemoglobin 10.3, Hematocrit 31, Mean Corpuscular Volume 92, Mean Corpuscular Hemoglobin 31, Mean Corpuscular Hemoglobin Concent 33, Red Cell Distribution Width 20.0, Platelet Count 116, Mean Platelet Volume 11.8, Prothrombin Time 17.6, INR Comment 1.4, Activated Partial Thromboplast Time 37 03/18/23 03:54: White Blood Count 13.0, Red Blood Count 3.32, Hemoglobin 10.1, Hematocrit 31, Mean Corpuscular Volume 93, Mean Corpuscular Hemoglobin 30, Mean Corpuscular Hemoglobin Concent 33, Red Cell Distribution Width 19.9, Platelet Count 114, Mean Platelet Volume , Activated Partial Thromboplast Time 87, Immature Granulocyte % (Auto) 2, Neutrophils (%) (Auto) 79, Lymphocytes (%) (Auto) 8, Monocytes (%) (Auto) 11, Eosinophils (%) (Auto) 0, Basophils (%) (Auto) 0, Neutrophils # (Auto) 10.3, Lymphocytes # (Auto) 1.0, Monocytes # (Auto) 1.4, E osinophils # (Auto) 0.0, Basophils # (Auto) 0.0, Immature Granulocyte # (Auto) 0.2, Percent Immature Platelet Fraction 10.6, Sodium Level 140, Potassium Level 2.7, Chloride Level 112, Carbon Dioxide Level 19, Anion Gap 9, Blood Urea Nitrogen 14, Creatinine 0.67, Estimat Glomerular Filtration Rate 89, BUN/Creatinine Ratio 21, Glucose Level 79, Calcium Level 7.9, Corrected Calcium 8.8, Magnesium Level 1.3, Total Bilirubin 5.1, Aspartate Amino Transf (AST/SGOT) 176, Alanine Aminotransferase (ALT/SGPT) 208, Alkaline Phosphatase 103, Total Protein 5.1, Albumin 2.9 03/18/23 09:50: Activated Partial Thromboplast Time 87 03/18/23 10:26: Glucometer 146 03/18/23 15:48: Glucometer 176 03/18/23 16:30: Activated Partial Thromboplast Time 62, Potassium Level 3.4 03/18/23 20:43: Glucometer 207 03/18/23 22:55: Activated Partial Thromboplast Time 45 03/19/23 04:51: Activated Partial Thromboplast Time 60, White Blood Count 9.7, Red Blood Count 2.95, Hemoglobin 8.8, Hematocrit 28, Mean Corpuscular Volume 94, Mean Corpuscular Hemoglobin 30, Mean Corpuscular Hemoglobin Concent 32, Red Cell Distribution Width 20.2, Platelet Count 91, Mean Platelet Volume , Immature Granulocyte % (Auto) 2, Neutrophils (%) (Auto) 79, Lymphocytes (%) (Auto) 10, Monocytes (%) (Auto) 9, Eosinophils (%) (Auto) 0, Basophils (%) (Auto) 0, Neutrophils # (Auto) 7.6, Lymphocytes # (Auto) 0.9, Monocytes # (Auto) 0.9, Eosinophils # (Auto) 0.0, Basophils # (Auto) 0.0, Immature Granulocyte # (Auto) 0.2, Percent Immature Platelet Fraction 10.7, Sodium Level 134, Potassium Level 4.0, Chloride Level 110, Carbon Dioxide Level 20, Anion Gap 4, Blood Urea Nitrogen 15, Creatinine 0.75, Estimat Glomerular Filtration Rate 81, BUN/Creatinine Ratio 20, Glucose Level 160, Calcium Level 7.8, Corrected Calcium 8.8, Magnesium Level 2.4, Total Bilirubin 2.7, Aspartate Amino Transf (AST/SGOT) 43, Alanine Aminotransferase (ALT/SGPT) 125, Alkaline Phosphatase 88, Total Protein 4.9, Albumin 2.7 03/19/23 10:28: Glucometer 184 03/19/23 12:15: Activated Partial Thromboplast Time 50 03/19/23 16:10: Glucometer 189 03/19/23 20:09: Glucometer 155 03/20/23 05:25: White Blood Count 4.9, Red Blood Count 2.99, Hemoglobin 9.1, Hematocrit 28, Mean Corpuscular Volume 92, Mean Corpuscular Hemoglobin 30, Mean Corpuscular Hemoglobin Concent 33, Red Cell Distribution Width 19.3, Platelet Count 84, Mean Platelet Volume , Immature Granulocyte % (Auto) 1, Neutrophils (%) (Auto) 73, L ymphocytes (%) (Auto) 14, Monocytes (%) (Auto) 10, Eosinophils (%) (Auto) 2, Basophils (%) (Auto) 0, Neutrophils # (Auto) 3.6, Lymphocytes # (Auto) 0.7, Monocytes # (Auto) 0.5, Eosinophils # (Auto) 0.1, Basophils # (Auto) 0.0, Immature Granulocyte # (Auto) 0.1, Percent Immature Platelet Fraction 11.5, Sodium Level 139, Potassium Level 3.5, Chloride Level 110, Carbon Dioxide Level 26, Anion Gap 3, Blood Urea Nitrogen 12, Creatinine 0.62, Estimat Glomerular Filtration Rate 91, BUN/Creatinine Ratio 19, Glucose Level 144, Calcium Level 8.7, Corrected Calcium 9.7, Total Bilirubin 1.8, Aspartate Amino Transf (AST/SGOT) 17, Alanine Aminotransferase (ALT/SGPT) 82, Alkaline Phosphatase 84, Total Protein 5.1, Albumin 2.7 03/20/23 10:50: Glucometer 195 03/20/23 15:29: Glucometer 177 03/21/23 06:20: Glucometer 84, White Blood Count 3.7, Red Blood Count 3.35, Hemoglobin 10.1, Hematocrit 31, Mean Corpuscular Volume 92, Mean Corpuscular Hemoglobin 30, Mean Corpuscular Hemoglobin Concent 33, Red Cell Distribution Width 19.3, Platelet Count 116, Mean Platelet Volume , Immature Granulocyte % (Auto) 2, Neutrophils (%) (Auto) 52, Lymphocytes (%) (Auto) 31, Monocytes (%) (Auto) 13, Eosinophils (%) (Auto) 3, Basophils (%) (Auto) 1, Neutrophils # (Auto) 1.9, Lymphocytes # (Auto) 1.1, Monocytes # (Auto) 0.5, Eosinophils # (Auto) 0.1, Basophils # (Auto) 0.0, Immature Granulocyte # (Auto) 0.1, Percent Immature Platelet Fraction 13.0, Sodium Level 142, Potassium Level 3.5, Chloride Level 107, Carbon Dioxide Level 28, Anion Gap 7, Blood Urea Nitrogen 11, Creatinine 0.62, Estimat Glomerular Filtration Rate 91, BUN/Creatinine Ratio 18, Glucose Level 128, Calcium Level 9.4, Corrected Calcium 10.2, Total Bilirubin 1.5, Aspartate Amino Transf (AST/SGOT) 14, Alanine Aminotransferase (ALT/SGPT) 60, Alkaline Phosphatase 76, Total Protein 5.6, Albumin 3.0 03/21/23 11:25: Glucometer 139 03/21/23 15:18: Glucometer 186 03/21/23 20:06: Glucometer 146 03/22/23 04:29: White Blood Count 3.0, Red Blood Count 3.31, Hemoglobin 10.0, Hematocrit 30, Mean Corpuscular Volume 91, Mean Corpuscular Hemoglobin 30, Mean Corpuscular Hemoglobin Concent 33, Red Cell Distribution Width 19.1, Platelet Count 126, Mean Platelet Volume , Immature Granulocyte % (Auto) 2, Neutrophils (%) (Auto) 45, Lymphocytes (%) (Auto) 40, Monocytes (%) (Auto) 8, Eosinophils (%) (Auto) 4, Basophils (%) (Auto) 1, Neutrophils # (Auto) 1.4, Lymphocytes # (Auto) 1.2, Monocytes # (Auto) 0.3, Eosinophils # (Auto) 0.1, Basophils # (Auto) 0.0, Immature Granulocyte # (Auto) 0.1, Percent Immature Platelet Fraction 12.3, Sodium Level 142, Potassium Level 3.1, Chloride Level 104, Carbon Dioxide Level 30, Anion Gap 8, Blood Urea Nitrogen 12, Creatinine 0.62, Estimat Glomerular Filtration Rate 91, BUN/Creatinine Ratio 19, Glucose Level 113, Calcium Level 9.3, Corrected Calcium 10.1, Total Bilirubin 1.3, Aspartate Amino Transf (AST/SGOT) 17, Alanine Aminotransferase (ALT/SGPT) 44, Alkaline Phosphatase 80, Total Protein 5.6, Albumin 3.0 Discharge Home Medications: Active Scripts Active Reported Multaq (Dronedarone HCl) 400 Mg Tablet 400 Mg PO BID Fish Oil 1,200 mg Softgel ([place]-3/Dha/Epa/Fish Oil) 1,200 Mg (144 Mg-216 Mg) Capsule 1,200 Mg PO TID Calcium (Calcium Carbonate) 600 Mg Calcium (1500 Mg) Tablet 600 Mg PO HS Magnesium (Magnesium Oxide) 400 Mg Magnesium Tablet 400 Mg PO HS Lidocaine 5% Patch (Lidocaine) 5 % Adh..patch 1 Patch TD DAILY PRN Pantoprazole Sodium 40 Mg Tablet.dr 40 Mg PO DAILY LAST FILLED 07-01-2022 #180/180 DAY SUPPLY Klor-Con 10 (Potassium Chloride) 10 Meq Tablet.er 20 Meq PO BID TAKES 2 (10MEQ) TABS Eliquis (Apixaban) 2.5 Mg Tablet 2.5 Mg PO BID Tramadol HCl 50 Mg Tablet 50 Mg PO TID PRN Neurontin (Gabapentin) 300 Mg Capsule 300 Mg PO TID Prednisone 1 Mg Tab 3 Mg PO DAILY TAKES 3 (1MG) TABS Tymlos (Abaloparatide) 80 Mcg/Dose (3120 Mcg/1.56 Ml) Pen.injctr 80 Mg IJ HS Pravastatin Sodium 20 Mg Tablet 20 Mg PO HS CURRENTLY NOT TAKING, WAS TOLD TO HOLD BY PROVIDER LAST FILLED 06-20-2022 #90/90 DAY SUPPLY Hydrochlorothiazide 25 Mg Tablet 25 Mg PO DAILY CURRENTLY NOT TAKING, WAS TOLD TO HOLD BY PROVIDER LAST FILLED 09-22-2022 #90/90 DAY SUPPLY Glyburide 5 Mg Tablet 5 Mg PO DAILY LAST FILLED 07-01-2022 #90/90 DAY SUPPLY Diltiazem 24Hr ER (Diltiazem HCl) 240 Mg Cap.er.24h 240 Mg PO DAILY LAST FILLED 06-20-2022 #90/90 DAY SUPPLY Fenofibric Acid (Fenofibric Acid (Choline)) 135 Mg Capsule.dr 135 Mg PO HS CURRENTLY NOT TAKING, WAS TOLD TO HOLD BY PROVIDER Metoprolol Succinate 200 Mg Tab.er.24h 200 Mg PO DAILY LAST FILLED 09-22-2022 #90/90 DAY SUPPLY Levocetirizine Dihydrochloride 5 Mg Tablet 5 Mg PO HS LAST FILLED 06-20-2022 #90/90 DAY SUPPLY Losartan Potassium 100 Mg Tablet 100 Mg PO HS LAST FILLED 10-08-2022 #90/90 DAY SUPPLY Instructions to patient/family Please see electronic discharge instructions given to patient. SAMEER MASTERSON DO Mar 22, 2023 09:33
[2023-03-22] MEDS ORDERED: CEFD300C3 PO (10:37)
--- NOTE | 2023-03-22 10:38 | Discharge Summary ---
Diagnosis/Chief Complaint Date of Admission Mar 17, 2023 at 03:28 Date of Discharge Discharge Date: Mar 22, 2023 Discharge Diagnosis Assessment: Sepsis PNA Acute hypoxic resp failure Acute liver failure Ductal system blockage with stones HTN AF OP PMR CKD DM Hypoglycemia Plan: MRCP Dr Lobato ICU IV abx Reason Hospital Visit CC: Diarrhea with weakness HPI: This is a 77yoWF clinic patient of mine who presented to the ER with similar complaints as she had prior to admit [place] [facility] [place]. She had fidelina dice at that time and was found to have severely high LFT's thought to be from meds so meds were stopped and patient was given IVF and conservative care and her liver returned to normal and USG was negative. When she was in ER I requested a CT scan which revealed possible stones in ductal system and MRCP ordered along with Dr Lobato consult. Discharge Summary Discharge Physical Examination Allergies: Coded Allergies: amiodarone (Verified Allergy, Intermediate, 07/29/07) butorphanol (Verified Allergy, Intermediate, 07/29/07) codeine (Verified Allergy, Intermediate, 07/29/07) epinephrine (Verified Allergy, Intermediate, 07/29/07) hydrocodone (Verified Allergy, Intermediate, 07/29/07) morphine (Verified Allergy, Intermediate, 07/29/07) Vitals & I&Os Vital Signs Date Time Temp Pulse Resp B/P (MAP) Pulse Ox O2 Delivery O2 Flow Rate FiO2 03/22/23 15:45 36.6 85 18 157/76 (103) 97 Nasal Cannula 2.00 03/18/23 22:30 28 General Appearance: Alert, Oriented X3, Cooperative Respiratory: Clear to Auscultation Cardiovascular: Regular Rate Psych/Mental Status: Mental Status NL Hospital Course Was the Problem List Reviewed?: Yes Uneventful hospital course. Admitted for sepsis from PNA and liver injury CT scan revealed bile duct with blockages and MRCP confirmed so arrangements were made to have ERCP by Dr Lance. UTI treated with abx which were narrowed after UCx completed. Overall she did well and resumed baseline function but did require O2 at DC which was arranged and she was DC in prep for ERCP tomorrow at [place]. Labs (last 24 hrs) Laboratory Tests 03/17/23 01:10: White Blood Count 5.4, Red Blood Count 3.92, Hemoglobin 11.9, Hematocrit 36, Mean Corpuscular Volume 93, Mean Corpuscular Hemoglobin 30, Mean Corpuscular Hemoglobin Concent 33, Red Cell Distribution Width 19.5H, Platelet Count 144, Mean Platelet Volume , Immature Granulocyte % (Auto) 1, Neutrophils (%) (Auto) 91H, Lymphocytes (%) (Auto) 4L, Monocytes (%) (Auto) 3, Eosinophils (%) (Auto) 0, Basophils (%) (Auto) 1, Neutrophils # (Auto) 4.9, Lymphocytes # (Auto) 0.2L, Monocytes # (Auto) 0.2, Eosinophils # (Auto) 0.0, Basophils # (Auto) 0.0, Immature Granulocyte # (Auto) 0.1, Neutrophils % (Manual) 87, Lymphocytes % (Man ual) 5, Monocytes % (Manual) 2, Band Neutrophils 6, Percent Immature Platelet Fraction 9.0H, Polychromasia SLIGHT, Poikilocytosis SLIGHT, Anisocytosis MODERATE, Elliptocytes MODERATE, Prothrombin Time 15.3H, INR Comment 1.2, Activated Partial Thromboplast Time 29, Sodium Level 138, Potassium Level 3.5L, Chloride Level 107, Carbon Dioxide Level 20L, Anion Gap 11, Blood Urea Nitrogen 19H, Creatinine 0.79, Estimat Glomerular Filtration Rate 76, BUN/Creatinine Ratio 24, Glucose Level 222H, Lactic Acid Level 2.43*H, Calcium Level 9.1, Corrected Calcium 9.2, Total Bilirubin 4.6H, Aspartate Amino Transf (AST/SGOT) 601H, Alanine Aminotransferase (ALT/SGPT) 283H, Alkaline Phosphatase 194H, Total Protein 6.6, Albumin 3.9, Influenza Type A (RT-PCR) Not Detected, Influenza Type B (RT-PCR) Not Detected, SARS-CoV-2 RNA (RT-PCR) Not Detected 03/17/23 01:40: Urine Color YELLOW, Urine Clarity SL CLOUDY, Urine pH 6.0, Urine Specific [place] 1.015L, Urine Protein 1+H, Urine Glucose (UA) 2+H, Urine Ketones NEGATIVE, Urine Nitrite NEGATIVE, Urine Bilirubin 1+H, Urine Urobilinogen 2.0, Urine Leukocyte Esterase NEGATIVE, Urine RBC (Auto) TRACEH, Urine RBC RARE, Urine WBC NONE, Urine Crystals NONE, Urine Bacteria NEGATIVE, Urine Casts PRESENT, Urine Hyaline Casts 0-2H, Urine Mucus NEGATIVE, Urine Culture Indicated NO 03/17/23 03:28: Lab Scanned Report Referred Lab Report 03/17/23 05:19: Lactic Acid Level 5.04*H 03/17/23 06:25: Glucometer 100 03/17/23 11:15: White Blood Count 17.0H, Red Blood Count 3.27L, Hemoglobin 9.9L, Hematocrit 30L, Mean Corpuscular Volume 92, Mean Corpuscular Hemoglobin 30, Mean Corpuscular Hemoglobin Concent 33, Red Cell Distribution Width 19.8H, Platelet Count 130, Mean Platelet Volume 12.1, Immature Granulocyte % (Auto) 2, Neutrophils (%) (Auto) 77H, Lymphocytes (%) (Auto) 6L, Monocytes (%) (Auto) 14H, Eosinophils (%) (Auto) 0, Basophils (%) (Auto) 0, Neutrophils # (Auto) 13.2H, Lymphocytes # (Auto) 1.0, Monocytes # (Auto) 2.4H, Eosinophils # (Auto) 0.0, Basophils # (Auto) 0.1, Immature Granulocyte # (Auto) 0.3H, Neutrophils % (Manual) 75, Lymphocytes % (Manual) 7, Monocytes % (Manual) 14, Eosinophils % (Manual) 1, Basophils % (Manual) 0, Band Neutrophils 3, Percent Immature Platelet Fraction 10.0H, Polychromasia SLIGHT, Anisocytosis MARKED, Elliptocytes SLIGHT, Prothrombin Time 17.7H, INR Comment 1.4, Sodium Level 141, Potassium Level 3.2L, Chloride Level 112H, Carbon Dioxide Level 20L, Anion Gap 9, Blood Urea Nitrogen 18, Creatinine 0.75, Estimat Glomerular Filtration Rate 81, BUN/Creatinine Ratio 24, Glucose Level 99, Calcium Level 8.3L, Corrected Calcium 8.9, Total Bilirubin 5.4H, Aspartate Amino Transf (AST/SGOT) 402H, Alanine Aminotransferase (ALT/SGPT) 292H, Alkaline Phosphatase 124, Total Protein 5.2L, Albumin 3.2 03/17/23 16:14: Glucometer 69L 03/17/23 17:08: Glucometer 92 03/17/23 20:36: Glucometer 52*L 03/17/23 22:01: Glucometer 98 03/17/23 23:15: White Blood Count 14.0H, Red Blood Count 3.35L, Hemoglobin 10.3L, Hematocrit 31L , Mean Corpuscular Volume 92, Mean Corpuscular Hemoglobin 31, Mean Corpuscular Hemoglobin Concent 33, Red Cell Distribution Width 20.0H, Platelet Count 116L, Mean Platelet Volume 11.8, Prothrombin Time 17.6H, INR Comment 1.4, Activated Partial Thromboplast Time 37H 03/18/23 03:54: White Blood Count 13.0H, Red Blood Count 3.32L, Hemoglobin 10.1L, Hematocrit 31L , Mean Corpuscular Volume 93, Mean Corpuscular Hemoglobin 30, Mean Corpuscular Hemoglobin Concent 33, Red Cell Distribution Width 19.9H, Platelet Count 114L, Mean Platelet Volume , Activated Partial Thromboplast Time 87H, Immature Granulocyte % (Auto) 2, Neutrophils (%) (Auto) 79H, Lymphocytes (%) (Auto) 8L, Monocytes (%) (Auto) 11, Eosinophils (%) (Auto) 0, Basophils (%) (Auto) 0, Neutrophils # (Auto) 10.3H, Lymphocytes # (Auto) 1.0, Monocytes # (Auto) 1.4H, Eosinophils # (Auto) 0.0, Basophils # (Auto) 0.0, Immature Granulocyte # (Auto) 0.2H, Percent Immature Platelet Fraction 10.6H, Sodium Level 140, Potassium Level 2.7L, Chloride Level 112H, Carbon Dioxide Level 19L, Anion Gap 9, Blood Urea Nitrogen 14, Creatinine 0.67, Estimat Glomerular Filtration Rate 89, BUN/Creatinine Ratio 21, Glucose Level 79, Calcium Level 7.9L, Corrected Calcium 8.8, Magnesium Level 1.3L, Total Bilirubin 5.1H, Aspartate Amino Transf (AST/SGOT) 176H, Alanine Aminotransferase (ALT/SGPT) 208H, Alkaline Phosphatase 103, Total Protein 5.1L, Albumin 2.9L 03/18/23 09:50: Activated Partial Thromboplast Time 87H 03/18/23 10:26: Glucometer 146H 03/18/23 15:48: Glucometer 176H 03/18/23 16:30: Activated Partial Thromboplast Time 62H, Potassium Level 3.4L 03/18/23 20:43: Glucometer 207H 03/18/23 22:55: Activated Partial Thromboplast Time 45H 03/19/23 04:51: Activated Partial Thromboplast Time 60H, White Blood Count 9.7, Red Blood Count 2.95L, Hemoglobin 8.8L, Hematocrit 28L, Mean Corpuscular Volume 94, Mean Corpuscular Hemoglobin 30, Mean Corpuscular Hemoglobin Concent 32, Red Cell Distribution Width 20.2H, Platelet Count 91L, Mean Platelet Volume , Immature Granulocyte % (Auto) 2, Neutrophils (%) (Auto) 79H, Lymphocytes (%) (Auto) 10L, Monocytes (%) (Auto) 9, Eosinophils (%) (Auto) 0, Basophils (%) (Auto) 0, Neutrophils # (Auto) 7.6, Lymphocytes # (Auto) 0.9L, Monocytes # (Auto) 0.9, Eosinophils # (Auto) 0.0, Basophils # (Auto) 0.0, Immature Granulocyte # (Auto) 0.2H, Percent Immature Platelet Fraction 10.7H, Sodium Level 134L, Potassium Level 4.0, Chloride Level 110H, Carbon Dioxide Level 20L, Anion Gap 4L, Blood Urea Nitrogen 15, Creatinine 0.75, Estimat Glomerular Filtration Rate 81, BUN/Creatinine Ratio 20, Glucose Level 160H, Calcium Level 7.8L, Corrected Calcium 8.8, Magnesium Level 2.4, Total Bilirubin 2.7H, Aspartate Amino Transf (AST/SGOT) 43H, Alanine Aminotransferase (ALT/SGPT) 125H, Alkaline Phosphatase 88, Total Protein 4.9L, Albumin 2.7L 03/19/23 10:28: Glucometer 184H 03/19/23 12:15: Activated Partial Thromboplast Time 50H 03/19/23 16:10: Glucometer 189H 03/19/23 20:09: Glucometer 155H 03/20/23 05:25: White Blood Count 4.9, Red Blood Count 2.99L, Hemoglobin 9.1L, Hematocrit 28L, Mean Corpuscular Volume 92, Mean Corpuscular Hemoglobin 30, Mean Corpuscular Hemoglobin Concent 33, Red Cell Distribution Width 19.3H, Platelet Count 84L, Mean Platelet Volume , Immature Granulocyte % (Auto) 1, Neutrophils (%) (Auto) 73, Lymphocytes (%) (Auto) 14, Monocytes (%) (Auto) 10, Eosinophils (%) (Auto) 2, Basophils (%) (Auto) 0, Neutrophils # (Auto) 3.6, Lymphocytes # (Auto) 0.7L, Monocytes # (Auto) 0.5, Eosinophils # (Auto) 0.1, Basophils # (Auto) 0.0, Immature Granulocyte # (Auto) 0.1, Percent Immature Platelet Fraction 11.5H, Sodium Level 139, Potassium Level 3.5L, Chloride Level 110H, Carbon Dioxide Level 26, Anion Gap 3L, Blood Urea Nitrogen 12, Creatinine 0.62, Estimat Glomerular Filtration Rate 91, BUN/Creatinine Ratio 19, Glucose Level 144H, Calcium Level 8.7, Corrected Calcium 9.7, Total Bilirubin 1.8H, Aspartate Amino Transf (AST/SGOT) 17, Alanine Aminotransferase (ALT/SGPT) 82H, Alkaline Phosphatase 84, Total Protein 5.1L, Albumin 2.7L 03/20/23 10:50: Glucometer 195H 03/20/23 15:29: Glucometer 177H 03/21/23 06:20: Glucometer 84, White Blood Count 3.7L, Red Blood Count 3.35L, Hemoglobin 10.1L, Hematocrit 31L, Mean Corpuscular Volume 92, Mean Corpuscular Hemoglobin 30, Mean Corpuscular Hemoglobin Concent 33, Red Cell Distribution Width 19.3H, Platelet Count 116L, Mean Platelet Volume , Immature Granulocyte % (Auto) 2, Neutrophils (%) (Auto) 52, Lymphocytes (%) (Auto) 31, Monocytes (%) (Auto) 13H, Eosinophils (%) (Auto) 3, Basophils (%) (Auto) 1, Neutrophils # (Auto) 1.9, Lymphocytes # (Auto) 1.1, Monocytes # (Auto) 0.5, Eosinophils # (Auto) 0.1, Basophils # (Auto) 0.0, Immature Granulocyte # (Auto) 0.1, Percent Immature Platelet Fraction 13.0H , Sodium Level 142, Potassium Level 3.5L, Chloride Level 107, Carbon Dioxide Level 28, Anion Gap 7, Blood Urea Nitrogen 11, Creatinine 0.62, Estimat Glomerular Filtration Rate 91, BUN/Creatinine Ratio 18, Glucose Level 128H, Calcium Level 9.4, Corrected Calcium 10.2H, Total Bilirubin 1.5H, Aspartate A ej Transf (AST/SGOT) 14, Alanine Aminotransferase (ALT/SGPT) 60H, Alkaline Phosphatase 76, Total Protein 5.6L, Albumin 3.0L 03/21/23 11:25: Glucometer 139H 03/21/23 15:18: Glucometer 186H 03/21/23 20:06: Glucometer 146H 03/22/23 04:29: White Blood Count 3.0L, Red Blood Count 3.31L, Hemoglobin 10.0L, Hematocrit 30L, Mean Corpuscular Volume 91, Mean Corpuscular Hemoglobin 30, Mean Corpuscular Hemoglobin Concent 33, Red Cell Distribution Width 19.1H, Platelet Count 126L, Mean Platelet Volume , Immature Granulocyte % (Auto) 2, Neutrophils (%) (Auto) 45, Lymphocytes (%) (Auto) 40, Monocytes (%) (Auto) 8, Eosinophils (%) (Auto) 4, Basophils (%) (Auto) 1, Neutrophils # (Auto) 1.4L, Lymphocytes # (Auto) 1.2, Monocytes # (Auto) 0.3, Eosinophils # (Auto) 0.1, Basophils # (Auto) 0.0, Immature Granulocyte # (Auto) 0.1, Percent Immature Platelet Fraction 12.3H, Sodium Level 142, Potassium Level 3.1L, Chloride Level 104, Carbon Dioxide Level 30, Anion Gap 8, Blood Urea Nitrogen 12, Creatinine 0.62, Estimat Glomerular Filtration Rate 91, BUN/Creatinine Ratio 19, Glucose Level 113H, Calcium Level 9.3, Corrected Calcium 10.1, Total Bilirubin 1.3H, Aspartate Amino Transf (AST/SGOT) 17, Alanine Aminotransferase (ALT/SGPT) 44, Alkaline Phosphatase 80, Total Protein 5.6L, Albumin 3.0L 03/22/23 11:19: Glucometer 212H 03/22/23 15:35: Glucometer 195H Microbiology 03/17/23 Blood Culture - Final, Complete Escherichia coli 03/17/23 Urine Culture - Final, Complete NO GROWTH Pending Labs Microbiology Date/Time Source Procedure Growth Status 03/17/23 02:00 Peripheral Rt Hand Blood Culture - Final Escherichia coli Complete 03/17/23 01:40 Urine U Cath,Nos Urine Culture - Final NO GROWTH Complete 03/17/23 01:10 Peripheral Rt Ac Blood Culture - Final Escherichia coli Complete Laboratory Tests 03/17/23 01:10: White Blood Count 5.4, Red Blood Count 3.92, Hemoglobin 11.9, Hematocrit 36, Mean Corpuscular Volume 93, Mean Corpuscular Hemoglobin 30, Mean Corpuscular Hemoglobin Concent 33, Red Cell Distribution Width 19.5, Platelet Count 144, Mean Platelet Volume , Immature Granulocyte % (Auto) 1, Neutrophils (%) (Auto) 91, Lymphocytes (%) (Auto) 4, Monocytes (%) (Auto) 3, Eosinophils (%) (Auto) 0, Basophils (%) (Auto) 1, Neutrophils # (Auto) 4.9, Lymphocytes # (Auto) 0.2, Monocytes # (Auto) 0.2, Eosinophils # (Auto) 0.0, Basophils # (Auto) 0.0, Immature Granulocyte # (Auto) 0.1, Neutrophils % (Manual) 87, Lymphocytes % (Manual) 5, Monocytes % (Manual) 2, Band Neutrophils 6, Percent Immature Platele t Fraction 9.0, Polychromasia SLIGHT, Poikilocytosis SLIGHT, Anisocytosis MODERATE, Elliptocytes MODERATE, Prothrombin Time 15.3, INR Comment 1.2, Activated Partial Thromboplast Time 29, Sodium Level 138, Potassium Level 3.5, Chloride Level 107, Carbon Dioxide Level 20, Anion Gap 11, Blood Urea Nitrogen 19, Creatinine 0.79, Estimat Glomerular Filtration Rate 76, BUN/Creatinine Ratio 24, Glucose Level 222, Lactic Acid Level 2.43, Calcium Level 9.1, Corrected Calcium 9.2, Total Bilirubin 4.6, Aspartate Amino Transf (AST/SGOT) 601, Alanine Aminotransferase (ALT/SGPT) 283, Alkaline Phosphatase 194, Total Protein 6.6, Albumin 3.9, Influenza Type A (RT-PCR) Not Detected, Influenza Type B (RT-PCR) Not Detected, SARS-CoV-2 RNA (RT-PCR) Not Detected 03/17/23 01:40: Urine Color YELLOW, Urine Clarity SL CLOUDY, Urine pH 6.0, Urine Specific [place] 1.015, Urine Protein 1+, Urine Glucose (UA) 2+, Urine Ketones NEGATIVE, Urine Nitrite NEGATIVE, Urine Bilirubin 1+, Urine Urobilinogen 2.0, Urine Leukocyte Esterase NEGATIVE, Urine RBC (Auto) TRACE, Urine RBC RARE, Urine WBC NONE, Urine Crystals NONE, Urine Bacteria NEGATIVE, Urine Casts PRESENT, Urine Hyaline Casts 0-2, Urine Mucus NEGATIVE, Urine Culture Indicated NO 03/17/23 03:28: Lab Scanned Report Referred Lab Report 03/17/23 05:19: Lactic Acid Level 5.04 03/17/23 06:25: Glucometer 100 03/17/23 11:15: White Blood Count 17.0, Red Blood Count 3.27, Hemoglobin 9.9, Hematocrit 30, Mean Corpuscular Volume 92, Mean Corpuscular Hemoglobin 30, Mean Corpuscular Hemoglobin Concent 33, Red Cell Distribution Width 19.8, Platelet Count 130, Mean Platelet Volume 12.1, Immature Granulocyte % (Auto) 2, Neutrophils (%) (Auto) 77, Lymphocytes (%) (Auto) 6, Monocytes (%) (Auto) 14, Eosinophils (%) (Auto) 0, Basophils (%) (Auto) 0, Neutrophils # (Auto) 13.2, Lymphocytes # (Auto) 1.0, Monocytes # (Auto) 2.4, Eosinophils # (Auto) 0.0, Basophils # (Auto) 0.1, Immature Granulocyte # (Auto) 0.3, Neutrophils % (Manual) 75, Lymphocytes % (Manual) 7, Monocytes % (Manual) 14, Eosinophils % (Manual) 1, Basophils % (Manual) 0, Band Neutrophils 3, Percent Immature Platelet Fraction 10.0, Polychromasia SLIGHT, Anisocytosis MARKED, Elliptocytes SLIGHT, Prothrombin Time 17.7, INR Comment 1.4, Sodium Level 141, Potassium Level 3.2, Chloride Level 112, Carbon Dioxide Level 20, Anion Gap 9, Blood Urea Nitrogen 18, Creatinine 0.75, Estimat Glomerular Filtration Rate 81, BUN/Creatinine Ratio 24, Glucose Level 99, Calcium Level 8.3, Corrected Calcium 8.9, Total Bilirubin 5.4, Aspartate Amino Transf (AST/SGOT) 402, Alanine Aminotransferase (ALT/SGPT) 292, Alkaline Phosphatase 124, Total Protein 5.2, Albumin 3.2 03/17/23 16:14: Glucometer 69 03/17/23 17:08: Glucometer 92 03/17/23 20:36: Glucometer 52 03/17/23 22:01: Glucometer 98 03/17/23 23:15: White Blood Count 14.0, Red Blood Count 3.35, Hemoglobin 10.3, Hematocrit 31, Mean Corpuscular Volume 92, Mean Corpuscular Hemoglobin 31, Mean Corpuscular Hemoglobin Concent 33, Red Cell Distribution Width 20.0, Platelet Count 116, Mean Platelet Volume 11.8, Prothrombin Time 17.6, INR Comment 1.4, Activated Partial Thromboplast Time 37 03/18/23 03:54: White Blood Count 13.0, Red Blood Count 3.32, Hemoglobin 10.1, Hematocrit 31, Mean Corpuscular Volume 93, Mean Corpuscular Hemoglobin 30, Mean Corpuscular Hemoglobin Concent 33, Red Cell Distribution Width 19.9, Platelet Count 114, Mean Platelet Volume , Activated Partial Thromboplast Time 87, Immature Granulocyte % (Auto) 2, Neutrophils (%) (Auto) 79, Lymphocytes (%) (Auto) 8, Monocytes (%) (Auto) 11, Eosinophils (%) (Auto) 0, Basophils (%) (Auto) 0, Reji trophils # (Auto) 10.3, Lymphocytes # (Auto) 1.0, Monocytes # (Auto) 1.4, Eosinophils # (Auto) 0.0, Basophils # (Auto) 0.0, Immature Granulocyte # (Auto) 0.2, Percent Immature Platelet Fraction 10.6, Sodium Level 140, Potassium Level 2.7, Chloride Level 112, Carbon Dioxide Level 19, Anion Gap 9, Blood Urea Nitrogen 14, Creatinine 0.67, Estimat Glomerular Filtration Rate 89, BUN/Cre atinine Ratio 21, Glucose Level 79, Calcium Level 7.9, Corrected Calcium 8.8, Magnesium Level 1.3, Total Bilirubin 5.1, Aspartate Amino Transf (AST/SGOT) 176, Alanine Aminotransferase (ALT/SGPT) 208, Alkaline Phosphatase 103, Total Protein 5.1, Albumin 2.9 03/18/23 09:50: Activated Partial Thromboplast Time 87 03/18/23 10:26: Glucometer 146 03/18/23 15:48: Glucometer 176 03/18/23 16:30: Activated Partial Thromboplast Time 62, Potassium Level 3.4 03/18/23 20:43: Glucometer 207 03/18/23 22:55: Activated Partial Thromboplast Time 45 03/19/23 04:51: Activated Partial Thromboplast Time 60, White Blood Count 9.7, Red Blood Count 2.95, Hemoglobin 8.8, Hematocrit 28, Mean Corpuscular Volume 94, Mean Corpuscular Hemoglobin 30, Mean Corpuscular Hemoglobin Concent 32, Red Cell Distribution Width 20.2, Platelet Count 91, Mean Platelet Volume , Immature Granulocyte % (Auto) 2, Neutrophils (%) (Auto) 79, Lymphocytes (%) (Auto) 10, Monocytes (%) (Auto) 9, Eosinophils (%) (Auto) 0, Basophils (%) (Auto) 0, Neutrophils # (Auto) 7.6, Lymphocytes # (Auto) 0.9, Monocytes # (Auto) 0.9, Eosinophils # (Auto) 0.0, Basophils # (Auto) 0.0, Immature Granulocyte # (Auto) 0.2, Percent Immature Platelet Fraction 10.7, Sodium Level 134, Potassium Level 4.0, Chloride Level 110, Carbon Dioxide Level 20, Anion Gap 4, Blood Urea Nitrogen 15, Creatinine 0.75, Estimat Glomerular Filtration Rate 81, BUN /Creatinine Ratio 20, Glucose Level 160, Calcium Level 7.8, Corrected Calcium 8.8, Magnesium Level 2.4, Total Bilirubin 2.7, Aspartate Amino Transf (AST/SGOT) 43, Alanine Aminotransferase (ALT/SGPT) 125, Alkaline Phosphatase 88, Total Protein 4.9, Albumin 2.7 03/19/23 10:28: Glucometer 184 03/19/23 12:15: Activated Partial Thromboplast Time 50 03/19/23 16:10: Glucometer 189 03/19/23 20:09: Glucometer 155 03/20/23 05:25: White Blood Count 4.9, Red Blood Count 2.99, Hemoglobin 9.1, Hematocrit 28, Mean Corpuscular Volume 92, Mean Corpuscular Hemoglobin 30, Mean Corpuscular Hemoglobin Concent 33, Red Cell Distribution Width 19.3, Platelet Count 84, Mean Platelet Volume , Immature Granulocyte % (Auto) 1, Neutrophils (%) (Auto) 73, Lymphocytes (%) (Auto) 14, Monocytes (%) (Auto) 10, Eosinophils (%) (Auto) 2, Basophils (%) (Auto) 0, Neutrophils # (Auto) 3.6, Lymphocytes # (Auto) 0.7, Monocytes # (Auto) 0.5, Eosinophils # (Auto) 0.1, Basophils # (Auto) 0.0, Immature Granulocyte # (Auto) 0.1, Percent Immature Platelet Fraction 11.5, Sodium Level 139, Potassium Level 3.5, Chloride Level 110, Carbon Dioxide Level 26, Anion Gap 3, Blood Urea Nitrogen 12, Creatinine 0.62, Estimat Glomerular Filtration Rate 91, BUN/Creatinine Ratio 19, Glucose Level 144, Calcium Level 8.7, Corrected Calcium 9.7, Total Bilirubin 1.8, Aspartate Amino Transf (AST/SGOT) 17, Alanine Aminotransferase (ALT/SGPT) 82, Alkaline Phosphatase 84, Total Protein 5.1, Albumin 2.7 03/20/23 10:50: Glucometer 195 03/20/23 15:29: Glucometer 177 03/21/23 06:20: Glucometer 84, White Blood Count 3.7, Red Blood Count 3.35, Hemoglobin 10.1, Hematocrit 31, Mean Corpuscular Volume 92, Mean Corpuscular Hemoglobin 30, Mean Corpuscular Hemoglobin Concent 33, Red Cell Distribution Width 19.3, Platelet Count 116, Mean Platelet Volume , Immature Granulocyte % (Auto) 2, Neutrophils (%) (Auto) 52, Lymphocytes (%) (Auto) 31, Monocytes (%) (Auto) 13, Eosinophils (%) (Auto) 3, Basophils (%) (Auto) 1, Neutrophils # (Auto) 1.9, Lymphocytes # (Auto) 1.1, Monocytes # (Auto) 0.5, Eosinophils # (Auto) 0.1, Basophils # (Auto) 0.0, Immature Granulocyte # (Auto) 0.1, Percent Immature Platelet Fraction 13.0, Sodium Level 142, Potassium Level 3.5, Chloride Level 107, Carbon Dioxide Level 28, Anion Gap 7, Blood Urea Nitrogen 11, Creatinine 0.62, Estimat Glomerular Filtration Rate 91, BUN/Creatinine Ratio 18, Glucose Level 128, Calcium Level 9.4, Corrected Calcium 10.2, Total Bilirubin 1.5, Aspartate Amino Transf (AST/SGOT) 14, Alanine Aminotransferase (ALT/SGPT) 60, Alkaline Phosphatase 76, Total Protein 5.6, Albumin 3.0 03/21/23 11:25: Glucometer 139 03/21/23 15:18: Glucometer 186 03/21/23 20:06: Glucometer 146 03/22/23 04:29: White Blood Count 3.0, Red Blood Count 3.31, Hemoglobin 10.0, Hematocrit 30, Mean Corpuscular Volume 91, Mean Corpuscular Hemoglobin 30, Mean Corpuscular Hemoglobin Concent 33, Red Cell Distribution Width 19.1, Platelet Count 126, Mean Platelet Volume , Immature Granulocyte % (Auto) 2, Neutrophils (%) (Auto) 45, Lymphocytes (%) (Auto) 40, Monocytes (%) (Auto) 8, Eosinophils (%) (Auto) 4, Basophils (%) (Auto) 1, Neutrophils # (Auto) 1.4, Lymphocytes # (Auto) 1.2, Monocytes # (Auto) 0.3, Eosinophils # (Auto) 0.1, Basophils # (Auto) 0.0, Immature Granulocyte # (Auto) 0.1, Percent Immature Platelet Fraction 12.3, Sodium Level 142, Potassium Level 3.1, Chloride Level 104, Carbon Dioxide Level 30, Anion Gap 8, Blood Urea Nitrogen 12, Creatinine 0.62, Estimat Glomerular Filtration Rate 91, BUN/Creatinine Ratio 19, Glucose Level 113, Calcium Level 9.3, Corrected Calcium 10.1, Total Bilirubin 1.3, Aspartate Amino Transf (AST/SGOT) 17, Alanine Aminotransferase (ALT/SGPT) 44, Alkaline Phosphatase 80, Total Protein 5.6, Albumin 3.0 03/22/23 11:19: Glucometer 212 03/22/23 15:35: Glucometer 195 Discharge Home Medications: Active Scripts Active Cefdinir 300 Mg Capsule 300 Mg PO BID Reported Multaq (Dronedarone HCl) 400 Mg Tablet 400 Mg PO BID Calcium (Calcium Carbonate) 600 Mg Calcium (1500 Mg) Tablet 600 Mg PO HS Magnesium (Magnesium Oxide) 400 Mg Magnesium Tablet 400 Mg PO HS Lidocaine 5% Patch (Lidocaine) 5 % Adh..patch 1 Patch TD DAILY PRN Pantoprazole Sodium 40 Mg Tablet.dr 40 Mg PO DAILY LAST FILLED 07-01-2022 #180/180 DAY SUPPLY Klor-Con 10 (Potassium Chloride) 10 Meq Tablet.er 20 Meq PO BID TAKES 2 (10MEQ) TABS Tramadol HCl 50 Mg Tablet 50 Mg PO TID PRN Neurontin (Gabapentin) 300 Mg Capsule 300 Mg PO TID Prednisone 1 Mg Tab 3 Mg PO DAILY TAKES 3 (1MG) TABS Tymlos (Abaloparatide) 80 Mcg/Dose (3120 Mcg/1.56 Ml) Pen.injctr 80 Mg IJ HS Diltiazem 24Hr ER (Diltiazem HCl) 240 Mg Cap.er.24h 240 Mg PO DAILY LAST FILLED 06-20-2022 #90/90 DAY SUPPLY Metoprolol Succinate 200 Mg Tab.er.24h 200 Mg PO DAILY LAST FILLED 09-22-2022 #90/90 DAY SUPPLY Levocetirizine Dihydrochloride 5 Mg Tablet 5 Mg PO HS LAST FILLED 06-20-2022 #90/90 DAY SUPPLY Losartan Potassium 100 Mg Tablet 100 Mg PO HS LAST FILLED 10-08-2022 #90/90 DAY SUPPLY Instructions to patient/family Please see electronic discharge instructions given to patient. SAMEER MASTERSON DO Mar 22, 2023 10:38
[2023-03-22 11:15] VITALS: BP 173/74
[2023-03-22] MEDS: cefTRIAXone IV/IM 1,000 MG in NS (IVPB) 50 ML 50 ML IV SCH (12:06)
--- NOTE | 2023-03-22 13:00 | D/C HH Face to Face Order ---
D/C Face to Face Orders Reconcile Patient Problems Problems Reviewed?: Yes Instructions for Patient Via [facility], Patient Instructions/FollowUp: PCP [address] Lance for ERCP Physician to follow Patient: Jese Discharge Diet for Home: No Restrictions Patient Problems: Bile duct stones Patient Data-Allergies,Ht & Wt Patient Allergies: Coded Allergies: amiodarone (Verified Allergy, Intermediate, 07/29/07) butorphanol (Verified Allergy, Intermediate, 07/29/07) codeine (Verified Allergy, Intermediate, 07/29/07) epinephrine (Verified Allergy, Intermediate, 07/29/07) hydrocodone (Verified Allergy, Intermediate, 07/29/07) morphine (Verified Allergy, Intermediate, 07/29/07) Height (Feet): 5 Height (Inches): 3.00 Weight (Pounds): 180 Weight (Ounces): 0.0 Home Health Need/Face to Face Date of Face to Face: Mar 22, 2023 Clinical Findings: Generalized weakness and fatigue, Instability, Muscle weakness I have seen Pt [id number]: Yes Discharged To: Home Diagnosis/Conditions: ECP Patient is Homebound due to: Muscle weakness, Shortness of breath/distress Homebound Status Due to the above stated illness, injury or surgical procedure (medical condition or diagnosis) and associated clinical findings, the patient is homebound because of his/her inability to leave home except with aid of a supportive device and/or person AND leaving the home requires a considerable and taxing effort or is medically contraindicated. Pt req the following assistanc: [facility] Nursing Orders Home Health Services Order: Nursing Services, [employer]-Evaluate & Treat, Physical Therapy-Evaluate & Treat Home Health Infusion Therapy Line Start Date: Mar 18, 2023 Certify Stmt I certify that this patient is under my care and that I, a nurse practitioner or a physician; a energy assistant working with me, had a face to face encounter that - meets the physician face to face encounter requirements with this patient as dated. SAMEER MASTERSON DO Mar 22, 2023 13:00
--- NOTE | 2023-03-22 13:40 | Cardiology Progress Note ---
Subjective Date Seen by Provider: Mar 22, 2023 Time Seen by Provider: 13:43 Subjective/Events-last exam Complaining of back pain. Blood pressure is elevated which patient associates with the back pain. Heart rate is in the 90s, atrial fibrillation Review of Systems General: No Chills, No Night Sweats, No Fatigue, No Malaise, No Appetite, No Other HEENT: No Head Aches, No Visual Changes, No Eye Pain, No Ear Pain, No Dysphasia, No Sinus Congestion, No Post Nasal Drip, No Sore Throat, No Other Pulmonary: No Dyspnea, No Cough, No Pleuritic Chest Pain, No Other Gastrointestinal: No: Nausea, Vomiting, Abdominal Pain, Diarrhea, Constipation, Melena, Hematochezia, Other Genitourinary: No Dysuria, No Frequency, No Incontinence, No Hematuria, No Retention, No Other Musculoskeletal: back pain Neurological: No: Weakness, Numbness, Incoordination, Change in speech, Confusion, Seizures, Other Exam Vital Signs Vital Signs Date Time Temp Pulse Resp B/P (MAP) Pulse Ox O2 Delivery O2 Flow Rate FiO2 03/22/23 11:15 36.5 94 18 173/74 (107) 91 Room Air 03/22/23 09:00 2.50 03/18/23 22:30 28 Physical Exam Alert and oriented, no distress. Neck supple, no JVD. Lungs: Clear anteriorly. Heart: S1-S2, irregular rhythm, no murmurs. Abdomen soft, nontender. Extremities no edema Labs Laboratory Tests Test 03/21/23 15:18 03/21/23 20:06 03/22/23 04:29 03/22/23 11:19 Range/Units Glucometer 186 H 146 H 212 H 70-110 MG/DL White Blood Count 3.0 L 4.3-11.0 10^3/uL Red Blood Count 3.31 L 3.80-5.11 10^6/uL Hemoglobin 10.0 L 11.5-16.0 g/dL Hematocrit 30 L 35-52 % Mean Corpuscular Volume 91 80-99 fL Mean Corpuscular Hemoglobin 30 25-34 pg Mean Corpuscular Hemoglobin Concent 33 32-36 g/dL Red Cell Distribution Width 19.1 H 10.0-14.5 % Platelet Count 126 L 130-400 10^3/uL Mean Platelet Volume 9.0-12.2 fL Immature Granulocyte % (Auto) 2 % Neutrophils (%) (Auto) 45 42-75 % Lymphocytes (%) (Auto) 40 12-44 % Monocytes (%) (Auto) 8 0-12 % Eosinophils (%) (Auto) 4 0-10 % Basophils (%) (Auto) 1 0-10 % Neutrophils # (Auto) 1.4 L 1.8-7.8 10^3/uL Lymphocytes # (Auto) 1.2 1.0-4.0 10^3/uL Monocytes # (Auto) 0.3 0.0-1.0 10^3/uL Eosinophils # (Auto) 0.1 0.0-0.3 10^3/uL Basophils # (Auto) 0.0 0.0-0.1 10^3/uL Immature Granulocyte # (Auto) 0.1 0.0-0.1 10^3/uL Percent Immature Platelet Fraction 12.3 H 0.0-7.6 % Sodium Level 142 135-145 MMOL/L Potassium Level 3.1 L 3.6-5.0 MMOL/L Chloride Level 104 98-107 MMOL/L Carbon Dioxide Level 30 21-32 MMOL/L Anion Gap 8 5-14 MMOL/L Blood Urea Nitrogen 12 7-18 MG/DL Creatinine 0.62 0.60-1.30 MG/DL Estimat Glomerular Filtration Rate 91 BUN/Creatinine Ratio 19 Glucose Level 113 H 70-105 MG/DL Calcium Level 9.3 8.5-10.1 MG/DL Corrected Calcium 10.1 8.5-10.1 MG/DL Total Bilirubin 1.3 H 0.1-1.0 MG/DL Aspartate Amino Transf (AST/SGOT) 17 5-34 U/L Alanine Aminotransferase (ALT/SGPT) 44 0-55 U/L Alkaline Phosphatase 80 40-136 U/L Total Protein 5.6 L 6.4-8.2 GM/DL Albumin 3.0 L 3.2-4.5 GM/DL A/P-Cardiology Admission Diagnosis Acute cholangitis Pneumonia Paroxysmal atrial fibrillation Palpitation Assessment/Plan Paroxysmal atrial fibrillation, in atrial fibrillation with normal ventricular response. Patient has been maintained on Toprol-XL 200 mg daily and Cardizem CD 240 mg daily. Discontinue Cardizem drip, continue heparin drip in preparation for possible ERCP. continue to monitor rate. Will start daily digoxin Eliquis has been on hold History of syncope, resolved. Continue to monitor. Coronary artery disease, history of CABG 4 in 2003 using vein graft to posterior descending, vein graft to OM, vein graft to diagonal, OROZCO to LAD, with Maze procedure. [id number] score is 6, yearly risk of stroke without oral anticoagulation is 9.8 percent, she is considered high risk for stroke. Continue heparin for now, consider to restart Eliquis 2.5mg BID. Hypertension, monitor blood pressure, adjust medications as necessary Hyperlipidemia, Maintained on pravastatin 20 mg daily, fenofibrate 160 mg daily and fish oil, currently on hold Diabetes mellitus, followed and managed by primary care physician Mild bilateral nonobstructive carotid artery stenosis, continue to monitor Patient is going to be discharged today KM TAPIA MD Mar 22, 2023 13:39
[2023-03-22 15:45] VITALS: BP 157/76
[2023-03-23] MEDS ORDERED: DIGOXIN 0.125 MG TABLET PO SCH (09:00)
== END 2023-03-22 16:02 | disposition home health service (06) | DRG 871 ==
LOC: EDUNIT# 01:02 → ER 01:04 → ICU 03:28 → 4TH 03-19 14:03
PROVIDERS: ADMIT Internal Medicine; ATTEND Internal Medicine
DX: A41.51 Sepsis due to Escherichia coli [E. coli] (principal); J18.9 Pneumonia, unspecified organism; J96.01 Acute respiratory failure with hypoxia; K72.00 Acute and subacute hepatic failure without coma; K80.31 Calculus of bile duct with cholangitis, unspecified, with obstruction; I25.810 Atherosclerosis of coronary artery bypass graft(s) without angina pectoris; K42.0 Umbilical hernia with obstruction, without gangrene; I47.20 Ventricular tachycardia, unspecified; I48.0 Paroxysmal atrial fibrillation; I25.10 Atherosclerotic heart disease of native coronary artery without angina pectoris; I12.9 Hypertensive chronic kidney disease with stage 1 through stage 4 chronic kidney disease, or unspecified chronic kidney disease; E11.22 Type 2 diabetes mellitus with diabetic chronic kidney disease; N18.30 Chronic kidney disease, stage 3 unspecified; Z79.84 Long term (current) use of oral hypoglycemic drugs; E11.649 Type 2 diabetes mellitus with hypoglycemia without coma; E78.00 Pure hypercholesterolemia, unspecified; K21.9 Gastro-esophageal reflux disease without esophagitis; I34.0 Nonrheumatic mitral (valve) insufficiency; I27.20 Pulmonary hypertension, unspecified; G47.33 Obstructive sleep apnea (adult) (pediatric); E87.6 Hypokalemia; I65.23 Occlusion and stenosis of bilateral carotid arteries; M35.3 Polymyalgia rheumatica; D69.6 Thrombocytopenia, unspecified; Z79.01 Long term (current) use of anticoagulants
CPT/HCPCS: 36415; 36569; 51702; 71045; 71260; 74177; 74181; 76937; 80053; 81000; 82947; 83605; 83735; 84132; 85007; 85025; 85027; 85610; 85730; 86850; 86900; 86901; 87040; 87077; 87088; 87186; 87636; 93005; 93041; 94640; 94664; 94760; 94761; 96365; 96375